=== PATIENT | male | born 1945 | race Caucasian/White ===

== ENCOUNTER 2021-08-03 10:00 | Outpatient (RCR) | payer MEDICARE, SELFPAY ==
--- NOTE | 2021-07-04 13:38 | MHC.PT.EP ---
[facility] [place] Office [place] Office [place] Office [address] [phone] F: [phone] F: [phone] F: [phone] F: [phone] Physical Therapy Plan of Care Date of Evaluation: Date of Surgery: Diagnosis: LBP Assessment: Pt is a 76 y/o male referred to PT for LBP who presents with signs an Sx consistent with lumbopelvic dysfunction resulting in decreased tolerance and ability to perform ambulatory ad standing tasks for duration as well as lifting objects of weight from the floor, , rolling in bed, and performing LE dressing secondary to decreased hip and core strength, decreased trunk ROM as well as decreased posture, increased tissue tension, pelvic asymmetry and pain. Pt is deemed an appropriate candidate to receive skilled PT in order to address his physical limitations to improve his functional ability. Frequency and Duration: The patient will be seen 2 x / wk x 4 wks. Short Term Goals: Initiate HEP. Usp Goals: I with HEP. Pt will be able to walk long distances with managed Sx; initial: Improve B hip MMT by at least 1/2 MMT grade. Treatment Plan: Modalities to reduce pain, spasms and effusion. Manual therapy to restore motion and function. Therapeutic exercise to improve strength and flexibility. Neuromuscular re-education for posture and balance. Therapeutic activities to return to functional activities of daily living. Electronically signed by: Khang Zhao PT. Please sign and return to therapist. Thank you for your referral.
--- NOTE | 2021-08-03 10:56 | MHC.PT.DC ---
[facility] [place] Office [place] Office [place] Office [address] [phone] F: [phone] F: [phone] F: [phone] F: [phone] Physical Therapy Discharge Report Diagnosis: LBP Date of Surgery: Date of Evaluation: 07/04/21 Date of Discharge: 08/03/21 Treatments to Date: 10 Cancellations to Date: No Shows to Date: Discharge Status: Achieved Goals Improved Function Independent with HEP Discharge Summary: Eduardo has been an active and motivated participant in his therapy in and out of the clinic, he is I with his home program and has met his therapeutic goals though improved persists with LE symptoms which are lessened in intensity, frequency and duration. He is in agreement with DC. Maria Esther low back pain questionnaire improved from 14% disability to 4%. Electronically signed by: Khang Zhao PT, DPT. Please sign and return to therapist. Thank you for your referral.
== END 2021-08-03 10:57 | disposition home or self-care (01) ==
LOC: HO.PTCHIC 10:00
PROVIDERS: Visit Provider Internal Medicine
DX: M54.50 Low back pain, unspecified (principal)
CPT/HCPCS: 97110; 97140; 97150; 97161

== ENCOUNTER 2021-09-17 09:54 | Outpatient (REF) | payer MEDICARE, SELFPAY ==
--- NOTE | ~2021-09-17 | XR_ITS ---
EXAMINATION: XR LUMBOSACRAL SPINE CLINICAL INFORMATION: Low back pain COMPARISON: None TECHNIQUE: Three views of the lumbosacral spine. FINDINGS: There is maintained lumbar lordosis with mild levoscoliosis. The vertebral heights are normal. There is loss of L5-S1 disc height. The rest of the disc heights are preserved. No visible acute fracture, dislocation or lytic process seen. There is moderate right L3-L4, L4-L5 facet joint hypertrophy and arthropathy. No lytic process seen. XR/XR lumbar spine 2-3V IMPRESSION: Mild degenerative disc changes L5-S1 disc level with moderate right L3-L4 and L4-L5 facet joint arthropathy. No visible acute fracture or dislocation seen.
== END 2021-09-17 09:55 | disposition home or self-care (01) ==
LOC: HO.HMGCX 09:54
PROVIDERS: PCP Internal Medicine; Visit Provider Internal Medicine
DX: M54.50 Low back pain, unspecified (principal)
CPT/HCPCS: 72100

== ENCOUNTER 2021-12-18 07:30 | Outpatient (REF) | payer MEDICARE, SELFPAY ==
[2021-12-18 11:29] LABS: MANUAL DIFF FLAG NO
[2021-12-18 11:46] LABS: Basophils Absolute Auto 0.1 X10*3/uL (0.0-0.2); Basophils Percent Auto 1.5 % (0-2); Eosinophils Absolute Auto 0.2 X10*3/uL (0.0-0.4); Eosinophils Percent Auto 3.4 % (0-4); Hematocrit 41.8 % (42.0-52.0); Hemoglobin 14.2 g/dl (14.0-18.0); Imm Gran Abs Auto 0.01 X10*3/uL (0.00-0.03); Imm Gran Pct Auto 0.2 % (0.0-0.4); Lymphocytes Absolute Auto 2.2 X10*3/uL (1.2-4.9); Lymphocytes Percent Auto 47.8 % (20-40); Mean Corpuscular Hemoglobin 31.5 pg (27.0-33.0); Mean Corpuscular Volume 92.7 fL (80.0-98.0); Mean Platelet Volume 10.3 fL (9.4-12.4); Monocytes Absolute Auto 0.5 X10*3/uL (0.1-1.2); Monocytes Percent Auto 9.7 % (2-11); Neutrophils Absolute Auto 1.7 x10*3/uL (2.0-8.3); Neutrophils Percent Auto 37.4 % (45-73); Platelet Count 248 X10*3/uL (160-400); Red Blood Count 4.51 X10*6/uL (4.60-5.80); Red Cell Distribution Width 12.4 % (11.0-16.0); White Blood Count 4.6 X10*3/uL (4.8-10.8)
[2021-12-18 12:25] LABS: Vitamin D 25-OH Total 36.2 ng/mL (>30)
[2021-12-18 13:11] LABS: Alanine Aminotransferase 22 U/L (0-40); Albumin Level 4.1 g/dL (3.5-5.0); Alkaline Phosphatase 50 U/L (39-117); Anion Gap 10 (12-20); Aspartate Amino Transferase 24 U/L (5-37); Bilirubin Total 0.5 mg/dL (0.0-1.0); Blood Urea Nitrogen 14 mg/dL (9-16); Calcium 8.9 mg/dL (8.4-10.2); Carbon Dioxide 29 mmol/L (22-29); Chloride 104 mmol/L (96-108); Cholesterol 153 mg/dL; Estimated Glomerular Filt Rate 54; Glucose Fasting 96 mg/dL (60-99); HDL Cholesterol 40 mg/dL; LDL Cholesterol Calculated 93 mg/dl; Potassium 4.6 mmol/L (3.3-5.1); Sodium 138 mmol/L (135-145); Total Protein 7.2 g/dL (6.5-8.0); Triglycerides 102 mg/dL
== END 2021-12-18 07:31 | disposition home or self-care (01) ==
LOC: HO.HMGCLDS 07:30
PROVIDERS: Visit Provider Internal Medicine
DX: I10 Essential (primary) hypertension (principal); R97.20 Elevated prostate specific antigen [PSA]; R53.83 Other fatigue; Z87.898 Personal history of other specified conditions
CPT/HCPCS: 36415; 80053; 80061; 82306; 85025

== ENCOUNTER 2021-12-20 07:24 | Outpatient (REF) | payer MEDICARE, SELFPAY ==
--- NOTE | ~2021-12-20 | MR_ITS ---
EXAMINATION: MR LUMBAR SPINE WITHOUT CONTRAST CLINICAL INFORMATION: Lumbar radiculopathy. COMPARISON: Lumbar spine radiographs 09/17/2021. TECHNIQUE: MRI of the lumbar spine was obtained using routine sequences without contrast. FINDINGS: There is spinal scoliosis with an apex left curvature centered at L3. There is grade 1 anterolisthesis of L4 on L5 related to advanced facet degenerative changes at this level. Vertebral heights are preserved. No acute bone marrow signal changes. There is loss of intervertebral disc height and T2 signal intensity at multiple levels related to disc degeneration. The tip of the conus medullaris is located at L1. No mass effect on the conus. Visualized distal cord signal intensity is normal. At L1-L2 the annular contour is normal. Bilateral facet degenerative change. No canal stenosis. No mass effect on the traversing or foraminal nerve roots. At L2-L3 there is a diffusely bulging disc. Advanced bilateral facet degenerative change. Moderate canal stenosis. Asymmetric narrowing of the right subarticular zone causes abutment and possible compression of the right traversing L3 nerve roots. No foraminal nerve root compression. At L3-L4 there is a left far lateral protrusion and a small central annular fissure associated with a bulging disc. Advanced facet degenerative change. Moderate canal stenosis. There is asymmetric narrowing of the right subarticular zone causing compression the right traversing L4 nerve roots. There is moderate compression of the extraforaminal segment of left L3 nerve root. At L4-L5 there is a diffusely bulging disc. Advanced facet degenerative change. There is also a small synovial cyst arising from the left L4-L5 facet joint. Severe canal stenosis. No foraminal nerve root compression. At L5-S1 there is a shallow central protrusion superimposed upon a diffusely bulging disc. Bilateral facet degenerative change. No canal stenosis. There is asymmetric abutment of the left traversing S1 nerve roots. Moderate compression of the left L5 foraminal nerve root. Limited visualization of the retroperitoneal anatomy reveals no abnormal finding. Psoas and paraspinal muscle groups are symmetric. MR/MR lumbar spine wo con IMPRESSION: There is advanced multilevel degenerative spondylosis of the lumbar spine with grade 1 anterolisthesis of L4 on L5 related to advanced facet degenerative changes at this level. Severe canal stenosis at L4-L5 primarily related to a pseudodisc bulge in conjunction with facet degenerative change and a tiny synovial cyst arising from the left L4-L5 facet joint. There is also moderate canal stenosis at L2-L3 and L3-L4. There are varying degrees of mass effect on the traversing and foraminal segments of the nerve roots as described above.
== END 2021-12-20 07:25 | disposition home or self-care (01) ==
LOC: HO.MRI 07:24
PROVIDERS: Visit Provider Internal Medicine
DX: M54.17 Radiculopathy, lumbosacral region (principal)
CPT/HCPCS: 72148

== ENCOUNTER → 2022-01-28 12:41 | Outpatient (BNVA) | payer MEDICARE, SELFPAY | PROVIDERS: PCP Internal Medicine; Visit Provider Internal Medicine | DX: M48.062 Spinal stenosis, lumbar region with neurogenic claudication (principal) | CPT/HCPCS: 99202 ==

== ENCOUNTER 2023-01-21 10:32 | Outpatient (AMB) | payer MEDICARE, SELFPAY ==
--- NOTE | 2023-01-21 11:32 | A.OFFPC_ITS ---
Vital Signs 01/21/23 11:35 Height 6 ft 3 in Weight 226 lb BMI 28.2 BP 130/70 Blood Pressure Location Rt brachial Position Sitting Pulse 70 Pulse Source Pulse Oximeter Pulse Oximetry (%) 98 Oxygen Delivery Method Room Air Intake Visit Reasons: 4 month follow up HTN Intake Note: Pt is here today for his 4 mo. f/u HTN Allergies No Known Allergies Allergy (Verified 01/21/23 11:51) Medication List - Last Reconciled 01/21/23 by Isabella Traylor MD aspirin (Adult Low Dose Aspirin) 81 mg PO DAILY cholecalciferol (vitamin D3) 50 mcg PO DAILY lisinopril 10 mg PO DAILY omega-3 fatty acids 1,000 mg PO DAILY Tobacco use date assessed: 01/21/23 Fall risk assessment: No Falls in past year Last assessed Fall Risk: 01/21/23 Dental Screening Dental Screen Date: 01/21/23 Did you have a dental visit in the last 12 months?: No Did you have a dental problem in the last 6 months where you did not have access to dental care?: No Was dental information given to patient?: Patient declined HPI 4 month follow up HTN HPI Details 77-year-old male with hypertension, here today for follow-up. Currently on lisinopril 10 mg once a day. 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 He has been feeling well, but complains of occasional contracture of left 5th digit.. Has history of elevated PSA in the past, but no urinary symptoms. [facility] Medical History Dupuytren's contracture of left hand Dupuytren's contracture of right hand Elevated PSA Hx of spinal stenosis Surgical History Hx of colonoscopy Family History Father CAD (coronary artery disease) Brother Prostate cancer Social History Housing: House Alcohol intake: never Patient Tobacco Use Status: Never used Tobacco e-Cigarette/Vaping Use: Never Used Second Hand Smoke Exposure: No Current occupational status: employed Cognitive needs: No Hearing needs: No Vision needs: No Questionnaire PHQ-9 Over the last 2 weeks, how often have you been bothered by any of the following problems? 1. Little interest or pleasure in doing things: not at all 2. Feeling down, depressed, or hopeless: not at all 3. Trouble falling or staying asleep, or sleeping too much: not at all 4. Feeling tired or having little energy: not at all 5. Poor appetite or overeating: not at all 6. Feeling bad about yourself - or that you are a failure or have let yourself or your family down: not at all 7. Trouble concentrating on things, such as reading the newspaper or watching television: not at all 8. Moving or speaking so slowly that other people could have noticed. Or the opposite - being so fidgety or restless that you have been moving around a lot more than usual: not at all 9. Thoughts that you would be better off or of hurting yourself in some way: not at all Total score: 0 Depression Screening Interpretation: Negative 10150 - PHQ-9 Billing: Yes Source: Developed by Drs. Minh Shah, Koki Bell, Harpreet Browne and colleagues, with an educational jaquan from [employer]. Thrive Questionnaire Date Thrive assessed: 01/21/23 I am a: Patient What is your living situation today?: I have a steady place to live Within the past 12 months, did the food you bought not last and you didn't have the money to get more?: Never true Within the past 12 months, did you worry whether your food would run out before you got money to buy more?: Never true Do you have trouble paying for medicines?: No Do you have trouble getting transportation to medical appointments?: No Do you have trouble paying your heating and electricity bill?: No Do you have trouble taking care of your child, family member or friend?: No Do you have trouble with day-to-day activities such as bathing, preparing meals, shopping, managing finances, etc.?: No Are you currently unemployed and looking for a job?: No Are you interested in more education?: No AUDIT C Alcohol Use Questionnaire (AUDIT-C) 1. How often do you have a drink containing alcohol?: Never Total Score: 0 ARMIDA-7 AMB Questionnaire ARMIDA-7 Date ARMIDA - 7 assessed: 01/21/23 Feeling nervous, anxious, or on edge: 0 = Not at all Not being able to stop or control worryin = Not at all Worrying too much about different things: 0 = Not at all Trouble relaxin = Not at all Being so restless that it is hard to sit still: 0 = Not at all Becoming easily annoyed or irritable: 0 = Not at all Feeling afraid as if something awful might happen: 0 = Not at all Total ARMIDA-7 score (0-4 normal; 5-9 mild; 10-14 moderate; 15-21 severe): 0 Source: Developed by Drs. Minh Shah, Koki Bell, Harpreet Browne and colleagues, with an educational jaquan from [employer]. ARMIDA-7 Assessment Billing ARMIDA-7 Assessment Tool: ARMIDA-7 Assessment 36070 Review of Systems Const Reports no additional complaints Card Denies chest pain, Denies chest pain with activity, Denies irregular heart rhythm, Denies lightheadedness and Denies dyspnea Resp Denies dyspnea Reports no additional complaints Musc Reports as per HPI and Reports stiffness Neuro Reports no additional complaints Physical exam (Primary Care) Vital Signs: Last Vital Signs Pulse 70 01/21/23 11:35 BP 130/70 01/21/23 11:35 Pulse Ox 98 01/21/23 11:35 Oxygen Delivery Method Room Air 01/21/23 11:35 BMI result Body Mass Index 28.2 Tobacco/Smoking Status: Tobacco use Status Tobacco use date assessed 01/21/23 01/21/23 11:38 Patient Tobacco Use Status Never used Tobacco 01/21/23 11:38 e-Cigarette/Vaping Use Never Used 01/21/23 11:38 PHQ-9: PHQ-9 Score PHQ-9: Total score 0 01/21/23 12:00 Depression Screening Interpretation: Negative Thrive Assessment: Date of Thrive Assessment Date Thrive assessed 01/21/23 01/21/23 11:38 Const Other: Alert oriented x3, no acute distress noted , ambulatory with normal gait Orientation/consciousness: patient oriented x3 Neck Neck: Yes full ROM, Yes no lymphadenopathy and Yes supple Resp Auscultation: clear to auscultation bilaterally Cardio Other: S1-S2 present regular rate and rhythm Neuro General: patient oriented x3, gait normal, tone normal, moves all extremities and no focal motor deficits Gait exam (Neuro): Normal gait present Motor exam (neuro): 5/5 motor strength present throughout Extrem Other: Contracture deformity on left 5th digit General: Yes full ROM, Yes no joint enlargement, Yes no pedal edema, Yes no calf tenderness and Yes normal gait Assessment and Plan Assessment & Plan (1) Essential hypertension: Code(s): I10 - Essential (primary) hypertension Plan: Blood pressure at goal of less than 130/80. Continue with current medication. Reinforced importance of following a low sodium diet, getting regular exercise, and lowering stress levels. (2) Elevated PSA: Comment: Followed by Dr. Sanchez at [facility] Urology Code(s): R97.20 - Elevated prostate specific antigen [PSA] Plan: Free and total PSA ordered (3) Dupuytren's contracture of left hand: Comment: left 5th digit Code(s): M72.0 - Palmar fascial fibromatosis [Dupuytren] Plan: Referral made to see Dr. Bailey at [facility] see orthopedics for further evaluation and management Orders: Orders Alanine Aminotransferase Today I10 - Essential (primary) hypertension, R97.20 - Elevated prostate specific antigen [PSA] Aspartate Amino Transferase Today I10 - Essential (primary) hypertension, R97.20 - Elevated prostate specific antigen [PSA] Basic Metabolic Panel Fasting Today I10 - Essential (primary) hypertension, R97.20 - Elevated prostate specific antigen [PSA] Lipid Panel Today I10 - Essential (primary) hypertension, R97.20 - Elevated prostate specific antigen [PSA] PSA,Total (Free>4and<10) Today I10 - Essential (primary) hypertension, R97.20 - Elevated prostate specific antigen [PSA] Referrals Orthopedics Referral M72.0 - Palmar fascial fibromatosis [Dupuytren] Coding Level of Care Code Est Pt Level 3 (81311) Diagnoses Essential hypertension I10 Elevated PSA R97.20 Dupuytren's contracture of left hand M72.0 Additional Codes ARMIDA-7 Assessment Billing - ARMIDA-7 Assessment Tool: ARMIDA-7 Assessment 12384 ([id number])
[2023-01-21 11:35] VITALS: BP 130/70; PULSE 70; O2SAT 98; BMI 28.2
== END 2023-01-21 12:28 | disposition home or self-care (01) ==
PROVIDERS: Visit Provider Internal Medicine
DX: I10 Essential (primary) hypertension (principal); R97.20 Elevated prostate specific antigen [PSA]; M72.0 Palmar fascial fibromatosis [Dupuytren]
CPT/HCPCS: 99213

== ENCOUNTER 2023-01-23 06:02 | Outpatient (REF) | payer MEDICARE, SELFPAY ==
[2023-01-23 12:16] LABS: Alanine Aminotransferase 20 U/L (0-40); Anion Gap 13 (12-20); Aspartate Amino Transferase 26 U/L (5-37); Blood Urea Nitrogen 13 mg/dL (9-16); Calcium 9.2 mg/dL (8.4-10.2); Carbon Dioxide 25 mmol/L (22-29); Chloride 105 mmol/L (96-108); Cholesterol 156 mg/dL; Estimated Glomerular Filt Rate > 60; Glucose Fasting 89 mg/dL (60-99); HDL Cholesterol 44 mg/dL; LDL Cholesterol Calculated 94 mg/dl; Sodium 139 mmol/L (135-145); Triglycerides 94 mg/dL
[2023-01-23 13:05] LABS: PSA,Total (Free>4and<10) 4.05 ng/mL (0.00-4.00)
[2023-01-28 10:04] LABS: Free Prostate Spec Ag 1.9 ng/mL; Percent Free Prostate Spec Ag 48 % (calc) (>25)
== END 2023-01-23 06:03 | disposition home or self-care (01) ==
LOC: HO.HMGCLDS 06:02
PROVIDERS: PCP Internal Medicine; Visit Provider Internal Medicine
DX: Z12.5 Encounter for screening for malignant neoplasm of prostate (principal); I10 Essential (primary) hypertension; R97.20 Elevated prostate specific antigen [PSA]
CPT/HCPCS: 36415; 80048; 80061; 84153; 84154; 84450; 84460

== ENCOUNTER 2023-03-04 12:45 | Outpatient (AMB) | payer MEDICARE, SELFPAY ==
[2023-03-04 13:08] VITALS: BMI 27.9
--- NOTE | 2023-03-04 13:08 | MHC.OFFVIS ---
Intake Vital Signs 03/04/23 13:08 Height 6 ft 3 in Weight 223 lb BMI 27.9 Intake Visit Reasons: Npatient, LT LF pain Intake Note: Eduardo 77 yr old who is right hand dominant, presents today as a new patient for evaluation of his left small finger. Patient reports he is having contracture in small finger that started in September or October and has worsen since. States his pinky is austin inward towards his palm. States this cause no pain or discomfort but at times gets in the way when he tries to put his hand in his pocket. Denies previous treatment, numbness or tingling. Hx of right small finger dupreytrens contracture. Allergies No Known Allergies Allergy (Verified 03/04/23 13:13) HPI Npatient, LT LF pain HPI Details Eduardo is a 77 year old right hand dominant man who presents with complaints of a left small finger contraction. He has a hx of a right small finger Dupuytren's contracture and had two surgeries to correct this many years ago. He complains of a contracture of the small finger for ~4-5 months. He denies any pain. 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 [facility] Medical History Dupuytren's contracture of left hand Dupuytren's contracture of right hand Elevated PSA Hx of spinal stenosis Surgical History Hx of colonoscopy Family History Father CAD (coronary artery disease) Brother Prostate cancer Social History Housing: House Alcohol intake: never Patient Tobacco Use Status: Never used Tobacco e-Cigarette/Vaping Use: Never Used Second Hand Smoke Exposure: No Current occupational status: employed Cognitive needs: No Hearing needs: No Vision needs: No Review of Systems Const All systems reviewed & are unremarkable except as noted in HPI and below Physical Exam Vital Signs: BMI result Body Mass Index 27.9 Const General: cooperative, healthy appearing and no acute distress Orientation/consciousness: patient oriented x3 HEENT Head: Yes normocephalic and Yes atraumatic Eyes EOM: EOMs intact bilaterally Resp Effort & Inspection: normal respiratory effort and able to speak in complete sentences Cardio Jugular venous distension: no JVD Skin General skin exam: turgor normal Rashes: no rashes Neuro General: patient oriented x3 Extrem Other: Evaluation of Left Upper Extremity: The patient is alert, oriented, and in no acute distress Neuro: Median, Ulnar, Radial nerves motor and sensory intact and sensation is normal to the tips of all digits Vascular: Cap refill brisk ROM: He can make a fist and extend his thumb, index, middle, and ring fingers Skin: No lacerations or abrasions. General: No Ecchymosis. No Erythema or evidence of infection. He has a Dupuytren's contracture of the small finger, Dupuytren's cord primarily on the ulnar side of the digit going into the ABductors Measuring: MCP 0/PIP 45 degrees Psych Appearance: grossly normal Affect: normal affect Attitude: cooperative Assessment & Plan Assessment & Plan (1) Dupuytren's contracture of left hand: Comment: left 5th digit Code(s): M72.0 - Palmar fascial fibromatosis [Dupuytren] Plan Assessment & Plan: 1. 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 These risks include, but are not limited to risk of damage to blood vessels, nerves, tendons, infection, recurrence, incomplete relief of preoperative symptoms, persistent pain, possible need for further surgery and the risks associated with regional blocks and anesthesia. The plan is to take the patient to the operating room sometime in April for the following procedures: 1. Left small finger Dupuytren's partial fasciectomy, under general All the patient's questions were answered. The patient understands that they will be contacted by our contour band saw operator [employer] soon to schedule this procedure. He would like this done in April when golf season finishes and he can get time off of work. He denies Diabetes, blood thinners, asthma, heart, lung, kidney issues He will follow up in 6-8 weeks to discuss surgery Scribed for Indu Bailey MD by Gerald Burgess, nuclear medicine medical director, on 03/04/23 at 1:50 PM, EST. Coding Level of Care Code New Pt Level 4 (95314) Diagnoses Dupuytren's contracture of left hand M72.0
== END 2023-03-04 13:53 | disposition home or self-care (01) ==
PROVIDERS: PCP Internal Medicine; Visit Provider Orthopaedic Surgery
DX: M72.0 Palmar fascial fibromatosis [Dupuytren] (principal)
CPT/HCPCS: 99204

== ENCOUNTER → 2023-03-04 12:45 | Outpatient (BNVA) | payer MEDICARE, SELFPAY | PROVIDERS: PCP Internal Medicine; Visit Provider Orthopaedic Surgery | DX: M72.0 Palmar fascial fibromatosis [Dupuytren] (principal) | CPT/HCPCS: 99202 ==

== ENCOUNTER 2023-05-20 08:48 | Outpatient (AMB) | payer MEDICARE, SELFPAY ==
--- NOTE | 2023-05-20 09:06 | A.OFFVIS_ITS ---
Intake Vital Signs 05/20/23 09:08 Height 6 ft 3 in Weight 223 lb BMI 27.9 Intake Visit Reasons: ov- Dupuytren's contracture of left hand Intake Note: Eduardo 77 yr old male presents today to sign his surgery consent for his left hand dupuytrens contracture. Allergies No Known Allergies Allergy (Verified 05/20/23 09:08) HPI ov- Dupuytren's contracture of left hand HPI Details Eduardo is a 77 year old right hand dominant man who returns to discuss his left small finger Dupuytrens contracture. He has a hx of right small finger and right index finger Dupuytren's c ontractures and had surgeries to correct these many years ago. He complains of a contracture of the small finger for ~7 months. He denies any pain. 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 [facility] Medical History Dupuytren's contracture of left hand Dupuytren's contracture of right hand Elevated PSA Hx of spinal stenosis Surgical History Hx of colonoscopy Family History Father CAD (coronary artery disease) Brother Prostate cancer Housing: House Alcohol intake: never Patient Tobacco Use Status: Never used Tobacco e-Cigarette/Vaping Use: Never Used Second Hand Smoke Exposure: No Current occupational status: employed Cognitive needs: No Hearing needs: No Vision needs: No Review of Systems Const All systems reviewed & are unremarkable except as noted in HPI and below Physical Exam Vital Signs: BMI result Body Mass Index 27.9 Const General: cooperative, healthy appearing and no acute distress Orientation/consciousness: patient oriented x3 HEENT Head: Yes normocephalic and Yes atraumatic Eyes EOM: EOMs intact bilaterally Resp Effort & Inspection: normal respiratory effort and able to speak in complete sentences Cardio Jugular venous distension: no JVD Skin General skin exam: turgor normal Rashes: no rashes Neuro General: patient oriented x3 Extrem Other: Evaluation of Left Upper Extremity: The patient is alert, oriented, and in no acute distress Neuro: Median, Ulnar, Radial nerves motor and sensory intact and sensation is normal to the tips of all digits Vascular: Cap refill brisk ROM: He can make a fist and extend his thumb, index, middle, and ring fingers Skin: No lacerations or abrasions. General: No Ecchymosis. No Erythema or evidence of infection. He has a Dupuytren's contracture of the small finger, Dupuytren's cord primarily on the ulnar side of the digit going into the small finger ABductor Measuring: MCP 0/PIP 65 degrees Psych Appearance: grossly normal Affect: normal affect Attitude: cooperative Assessment & Plan Assessment & Plan (1) Dupuytren's contracture of left hand: Comment: left 5th digit Code(s): M72.0 - Palmar fascial fibromatosis [Dupuytren] Plan Assessment & Plan: 1. Left small finger Dupuytren's contracture MCP 0/PIP 65 With an ulnar-sided cord going to the small finger ABductor I educated him about this condition I discussed operative and non-operative treatment options The patient would like to proceed with surgery The risks and benefits of operative treatment were discussed with the patient and the patient wishes to proceed with surgery. These risks include, but are not limited to risk of damage to blood vessels, nerves, tendons, infection, recurrence, incomplete relief of preoperative symptoms, persistent pain, possible need for further surgery and the risks associated with regional blocks and anesthesia. The plan is to take the patient to the operating room sometime in the next few months for the following procedures: 1. Left small finger Dupuytren's partial fasciectomy, under general All the patient's questions were answered. The patient understands that they will be contacted by our ship rigger soon to schedule this procedure. He denies Diabetes, blood thinners, asthma, heart, lung, kidney issues He will need an appointment with the hand therapist at his 1st postop for them to make him a custom thermoplastic night splint and start working on range of motion. Scribed for Indu Bailey MD by Gerald Burgess medical office assistant, on 05/20/23 at 9:25 AM, EST. Coding Level of Care Code Est Pt Level 4 (41940) Diagnoses Dupuytren's contracture of left hand M72.0
[2023-05-20 09:08] VITALS: BMI 27.9
== END 2023-05-20 10:30 | disposition home or self-care (01) ==
PROVIDERS: PCP Internal Medicine; Visit Provider Orthopaedic Surgery
DX: M72.0 Palmar fascial fibromatosis [Dupuytren] (principal)
CPT/HCPCS: 99214

== ENCOUNTER → 2023-05-20 08:48 | Outpatient (BNVA) | payer MEDICARE, SELFPAY | PROVIDERS: PCP Internal Medicine; Visit Provider Orthopaedic Surgery | DX: M72.0 Palmar fascial fibromatosis [Dupuytren] (principal) | CPT/HCPCS: 99212 ==

== ENCOUNTER 2023-07-22 06:20 | Day surgery (SDC) | payer MEDICARE, SELFPAY ==
[2023-07-18 13:30] VITALS: BMI 28.6
--- NOTE | 2023-07-21 08:17 | HO.ANESPROP2 ---
Documented by User: Kelly Moreno NP 07/21/23 08:17 HPI - Anesthesia Eval Consult details Narrative: 78yo M for Colonoscopy PMFSH Active Problems Active Problems: All Active Problems (Updated 07/18/23 @ 13:27 by Leti Washington RN) Spinal stenosis, lumbar region with neurogenic claudication (Acute) Degenerative lumbar spinal stenosis (Acute) Right lumbosacral radiculopathy (Acute) Essential hypertension (Acute) Dupuytren's contracture of left hand (Acute) Hx of spinal stenosis (Acute) Elevated PSA (Acute) Past Medical History Medical History HTN (hypertension) Dupuytren's contracture of left hand Hx of spinal stenosis Elevated PSA Dupuytren's contracture of right hand Family History Family History Father CAD (coronary artery disease) Brother Prostate cancer Surgical History Surgical History History of back surgery Hx of colonoscopy Social History Social History Housing: House Alcohol intake: never Patient Tobacco Use Status: Never used Tobacco e-Cigarette/Vaping Use: Never Used Second Hand Smoke Exposure: No Use of substances other than those prescribed or required for medical reasons: No Are you DNR?: No Advance Directives: No Advance Directives Information Provided: Yes Advance Directives on File: No Current occupational status: employed Cognitive needs: No Hearing needs: No Vision needs: No Meds Allergies Allergy/AdvReac Type Severity Reaction Status Date / Time No Known Allergies Allergy Verified 05/20/23 09:08 Home Medications Medication Instructions Recorded Confirmed Last Taken Type aspirin 81 mg tablet,delayed 81 mg PO DAILY 12/14/20 07/18/23 Unknown History release (Adult Low Dose Aspirin) cholecalciferol (vitamin D3) 50 50 mcg PO DAILY 12/14/20 07/18/23 Unknown History mcg (2,000 unit) capsule omega-3 fatty acids 1,000 mg 1,000 mg PO DAILY 12/14/20 07/18/23 Unknown History capsule Exam Height,Weight and Vital Signs: Height 6 ft 2 in Weight 101.151 kg Assessment and Plan Assessment Anesthesia Assessment: Chart Reviewed Documented by User: Krysten Jorgensen MD 07/22/23 07:35 PMFSH Active Problems Active Problems: All Active Problems (Updated 07/22/23 @ 07:20 by Krysten Jrogensen MD) Spinal stenosis, lumbar region with neurogenic claudication (Acute) Degenerative lumbar spinal stenosis (Acute) Right lumbosacral radiculopathy (Acute) Essential hypertension (Acute) Dupuytren's contracture of left hand (Acute) Hx of spinal stenosis (Acute) Elevated PSA (Acute) Past Medical History Medical History HTN (hypertension) Dupuytren's contracture of left hand Hx of spinal stenosis Elevated PSA Dupuytren's contracture of right hand Family History Family History Father CAD (coronary artery disease) Brother Prostate cancer Family history of problems with anesthesia: No Surgical History Surgical History History of back surgery Hx of colonoscopy History of Problems with Anesthesia: No Social History Social History Housing: House Alcohol intake: never Patient Tobacco Use Status: Never used Tobacco e-Cigarette/Vaping Use: Never Used Second Hand Smoke Exposure: No Use of substances other than those prescribed or required for medical reasons: No Are you DNR?: No Advance Directives: No Advance Directives Information Provided: Yes Advance Directives on File: No Current occupational status: employed Cognitive needs: No Hearing needs: No Vision needs: No Meds Allergies Allergy/AdvReac Type Severity Reaction Status Date / Time No Known Allergies Allergy Verified 05/20/23 09:08 Home Medications Medication Instructions Recorded Confirmed Last Taken Type aspirin 81 mg tablet,delayed 81 mg PO DAILY 12/14/20 07/18/23 Unknown History release (Adult Low Dose Aspirin) cholecalciferol (vitamin D3) 50 50 mcg PO DAILY 12/14/20 07/18/23 Unknown History mcg (2,000 unit) capsule omega-3 fatty acids 1,000 mg 1,000 mg PO DAILY 12/14/20 07/18/23 Unknown History capsule Exam Height,Weight and Vital Signs: Height 6 ft 2 in Weight 101.151 kg Vital Signs Temp Pulse Resp BP Pulse Ox O2 Del Method 07/22/23 07:12 98.7 F 77 18 150/77 H 99 Room Air Airway Mallampati Class: I TM Dist: >3cm Neck ROM: Full Denture: Upper and Lower Loose/Missing/Broken Teeth: Yes (Edentulous. Dentures at home) Heart: RRR Lungs: CTAB Assessment and Plan Assessment Anesthesia Assessment: Anesthesia Plan Discussed Final Anesthetic Review Family History of Problems with Anesthesia: No History of Problems with Anesthesia: No NPO: Yes ASA Class: II Final Preanesthetic Review: No Changes in Pt Med Stat, Meds/Allgs Chart Reviewed, Consent Obtained/Reviewed and Anes Risks/Benef Reviewed Patient Risk: Intermediate Procedure Risk: Low Assessment/Block/Sedation in SS: Assess/Block/Sedation-SS Anesthetic Plan Anesthetic Plan: TIVA Disposition: Standard PACU
[2023-07-22 06:56] VITALS: BMI 29.2
[2023-07-22 07:12] VITALS: BP 150/77; PULSE 77; RESP 18; TEMP 37.1; O2SAT 99
--- NOTE | 2023-07-22 07:30 | P.HPSUR_ITS ---
Pre-Procedural Eval Section A Date of Service: 07/22/23 Section B Chief Complaint: Encounter for screening for malignant neoplasm of Details of Present Illness: see H*P no changes Relevant Family History (Specify if Yes): No Relevant Social History: None Present Medications: see Short Stay Collaborative assessment Medical History: No relevant PMH History of Previous Operations: No relevant previous surgery Allergies: Allergies Allergy/AdvReac Type Severity Reaction Status Date / Time No Known Allergies Allergy Verified 05/20/23 09:08 Review of Systems Sugical H&P ROS: Negative: Constitution, Cardiovascular, Respiratory, Neurolo gical, Psychiatric, Hem-Onc, Allergic/Immunologic, Gastrointestinal, Genitourinary, Musculoskeletal, Integumentary, Endocrine and Eyes/Ears/Nose/Throat Exam Surgical H&P Exam: Normal: HEENT, Normal: Heart, Normal: Lungs, Normal: Extremities, Normal: Abdomen, Normal: Skin and Normal: Neurological Plan Diagnosis/Plan: Unchanged I have reviewed the history and physical and performed a pertinent physical examination on my patient. No changes have occurred unless specified. Time Spent With Patient Time: Total time managing care of this patient today ____ minutes.
[2023-07-22 08:04] VITALS: BP 100/49; PULSE 81; RESP 18; TEMP 36.3; O2SAT 97
[2023-07-22 08:19] VITALS: BP 107/61; PULSE 81; RESP 18; TEMP 36.3; O2SAT 99
--- NOTE | 2023-07-22 10:47 | OP_ITS ---
DATE OF SERVICE: 07/22/2023 SURGEON: Avery Carrero MD INDICATIONS: Colon cancer screening. PREOPERATIVE DIAGNOSIS: POSTOPERATIVE DIAGNOSIS: PROCEDURE PERFORMED: ESTIMATED BLOOD LOSS: COMPLICATIONS: ANESTHESIA: Monitored anesthesia care. ASSISTANTS: SPECIMENS: OPERATIONS PERFORMED: Colonoscopy to the terminal ileum with biopsy. DESCRIPTION OF PROCEDURE: History and physical was performed. The risks and benefits of the procedure were explained to the patient. Informed consent was obtained. The patient was placed in the left lateral decubitus position. A digital rectal exam was performed and was found to be normal. The Olympus pediatric video colonoscope was introduced into the rectum and advanced to the cecum. The cecum was identified by transillumination, palpation, and identification of ileocecal valve. Examination was performed. The scope was removed. He tolerated the procedure well and was returned to the recovery area in stable condition. FINDINGS: The terminal ileum was examined and appeared normal. The visualized colonic mucosa was normal. The quality of prep was good. In the cecum was aless than 5 mm polyp, which was removed with biopsy forceps. Retroflexed examination showed moderate-sized internal hemorrhoids. There was mild sigmoid diverticulosis. IMPRESSION: Colon polyp. RECOMMENDATION: Follow up the biopsy results. MD MARIBELL Duncan/DOMINIC / [id number] MTDD
== END 2023-07-22 08:55 | disposition home or self-care (01) ==
PROVIDERS: PCP Internal Medicine; Visit Provider Internal Medicine Gastroenterology
PROC: 0DJD8ZZ Inspection of Lower Intestinal Tract, Via Natural or Artificial Opening Endoscopic (ICD-10-PCS; CPT 45378; principal; 2023-07-22 07:30)
DX: Z12.11 Encounter for screening for malignant neoplasm of colon (principal); D12.0 Benign neoplasm of cecum; K57.30 Diverticulosis of large intestine without perforation or abscess without bleeding; K64.8 Other hemorrhoids; I10 Essential (primary) hypertension; Z79.82 Long term (current) use of aspirin
CPT/HCPCS: 45380; 88305; J2704

== ENCOUNTER 2023-08-14 05:44 | Day surgery (SDC) | payer MEDICARE, SELFPAY ==
[2023-07-29 09:26] VITALS: BMI 27.9
[2023-08-14] VITALS (9 sets, daily range): BP systolic 123–163; BP diastolic 58–85; PULSE 66–89; RESP 12–16; TEMP 36.4–36.8; O2SAT 95–98; BMI 28.8
[2023-08-14] MEDS: Lactated Ringers 1,000 ML 100 ML IVCONT (06:30)
--- NOTE | 2023-08-14 07:15 | P.CONAN_ITS ---
Documented by User: Kelly Moreno NP 08/13/23 09:40 HPI - Anesthesia Eval Consult details Narrative: 78yo M for Left Left 5th digit Dupuytrens Contracture Release, partial Fasciectomy s/p colo 06/2023 [facility] Active Problems Active Problems: All Active Problems (Updated 07/18/23 @ 13:27 by Leti Washington RN) Spinal stenosis, lumbar region with neurogenic claudication (Acute) Degenerative lumbar spinal stenosis (Acute) Right lumbosacral radiculopathy (Acute) Essential hypertension (Acute) Dupuytren's contracture of left hand (Acute) Hx of spinal stenosis (Acute) Elevated PSA (Acute) Past Medical History Medical History HTN (hypertension) Dupuytren's contracture of left hand Hx of spinal stenosis Elevated PSA Dupuytren's contracture of right hand Family History Family History Father CAD (coronary artery disease) Brother Prostate cancer Family history of problems with anesthesia: No Surgical History Surgical History Hx of hand surgery History of back surgery Hx of colonoscopy History of Problems with Anesthesia: No Social History Social History Housing: House Alcohol intake: never Patient Tobacco Use Status: Never used Tobacco e-Cigarette/Vaping Use: Never Used Second Hand Smoke Exposure: No Use of substances other than those prescribed or required for medical reasons: No Are you DNR?: No Advance Directives: No Advance Directives Information Provided: Yes Current occupational status: employed Cognitive needs: No Hearing needs: No Vision needs: No Meds Allergies Allergy/AdvReac Type Severity Reaction Status Date / Time No Known Allergies Allergy Verified 08/14/23 06:07 Home Medications Medication Instructions Recorded Confirmed Last Taken Type aspirin 81 mg tablet,delayed 81 mg PO DAILY 12/14/20 08/14/23 08/05/23 History release (Adult Low Dose Aspirin) cholecalciferol (vitamin D3) 50 50 mcg PO DAILY 12/14/20 08/14/23 Unknown History mcg (2,000 unit) capsule omega-3 fatty acids 1,000 mg 1,000 mg PO DAILY 12/14/20 08/14/23 08/05/23 History capsule Exam Height,Weight and Vital Signs: Height 6 ft 3 in Weight 101.151 kg Pertinent Lab Results Pertinent Lab Results: Laboratory Tests 01/23/23 06:08 Sodium 139 Potassium 4.0 Chloride 105 Carbon Dioxide 25 BUN 13 Creatinine 1.16 Assessment and Plan Assessment Anesthesia Assessment: Chart Reviewed Final Anesthetic Review Family History of Problems with Anesthesia: No History of Problems with Anesthesia: No Documented by User: Felipa Celestin DO 08/14/23 08:13 [facility] Past Medical History Medical History HTN (hypertension) Dupuytren's contracture of left hand Hx of spinal stenosis Elevated PSA Dupuytren's contracture of right hand Family History Family History Father CAD (coronary artery disease) Brother Prostate cancer Family history of problems with anesthesia: No Surgical History Surgical History Hx of hand surgery History of back surgery Hx of colonoscopy History of Problems with Anesthesia: No Social History Social History Housing: House Alcohol intake: never Patient Tobacco Use Status: Never used Tobacco e-Cigarette/Vaping Use: Never Used Second Hand Smoke Exposure: No Use of substances other than those prescribed or required for medical reasons: No Are you DNR?: No Advance Directives: No Advance Directives Information Provided: Yes Current occupational status: employed Cognitive needs: No Hearing needs: No Vision needs: No Meds Allergies Allergy/AdvReac Type Severity Reaction Status Date / Time No Known Allergies Allergy Verified 08/14/23 06:07 Home Medications Medication Instructions Recorded Confirmed Last Taken Type aspirin 81 mg tablet,delayed 81 mg PO DAILY 12/14/20 08/14/23 08/05/23 History release (Adult Low Dose Aspirin) cholecalciferol (vitamin D3) 50 50 mcg PO DAILY 12/14/20 08/14/23 Unknown History mcg (2,000 unit) capsule omega-3 fatty acids 1,000 mg 1,000 mg PO DAILY 12/14/20 08/14/23 08/05/23 History capsule Exam Exam Date and Time: August 14, 202315 Height,Weight and Vital Signs: Height 6 ft 3 in Weight 101.151 kg Height 6 ft 3 in Weight 104.598 kg Vital Signs Temperature 98.2 F 08/14/23 06:29 Pulse Rate 66 08/14/23 06:29 Respiratory Rate 16 08/14/23 06:29 Blood Pressure 163/76 H 08/14/23 06:29 Pulse Oximetry 98 08/14/23 06:29 Oxygen Delivery Method Room Air 08/14/23 06:29 Temperature 98.2 F 08/14/23 06:29 Pulse Rate 66 08/14/23 06:29 Respiratory Rate 16 08/14/23 06:29 Blood Pressure 163/76 H 08/14/23 06:29 Pulse Oximetry 98 08/14/23 06:29 Oxygen Delivery Method Room Air 08/14/23 06:29 Airway Mallampati Class: I TM Dist: >3cm Neck ROM: Full Denture: Upper and Lower Heart: S1S2 Lungs: CTAB Assessment and Plan Assessment Anesthesia Assessment: Anesthesia Plan Discussed and Chart Reviewed Final Anesthetic Review Family History of Problems with Anesthesia: No History of Problems with Anesthesia: No NPO: Yes ASA Class: II Final Preanesthetic Review: No Changes in Pt Med Stat, Meds/Allgs Chart Reviewed, Consent Obtained/Reviewed and Anes Risks/Benef Reviewed Patient Risk: Low Procedure Risk: Low Anesthetic Plan Anesthetic Plan: GA, Regional Block (left brachial plexus block) and Agree w/ Assess. and Plan Disposition: Standard PACU
--- NOTE | 2023-08-14 07:47 | MHC.SHP ---
Pre-Procedural Eval Section A - 24 Hr Update-Section A only Date of Service: 08/14/23 The patient is an INPATIENT: No Changes since office visit: No Cold of Flu in the past 2 weeks, No New Medical Problems, No Changes in Medication and No Patient answered all questions The patient has been examined within 24 hours of the surgical procedure. The History & Physical has been completed within 30 days and I have reviewed it.: Yes Section B - Complete if H&P > 30 days Chief Complaint: Palmar fascial fibromatosis [Dupuytren] Allergies: Allergies Allergy/AdvReac Type Severity Reaction Status Date / Time No Known Allergies Allergy Verified 08/14/23 06:07 Plan I have reviewed the history and physical and performed a pertinent physical examination on my patient. No changes have occurred unless specified. Time Spent With Patient Time: Total time managing care of this patient today ____ minutes.
--- NOTE | 2023-08-14 07:48 | P.OP_ITS ---
Operative Note Operative Note Date of Service: 08/14/23 Narrative: Preop diagnosis: 1. Left small finger Dupuytren's contracture Postop diagnosis: Same Procedure: 1. Left small finger Partial Dupuytren's fasciectomy 2. Left small finger ulnar Digital nerve neurolysis 3. Left small finger PIP joint volar capsular release and release of the volar plate Surgeon: Indu Bailey MD Anesthesia: General anesthesia plus regional block Findings: An ulnar-sided Dupuytren's cord extending from the small finger abductor to the ulnar aspect of the middle phalanx. Following our partial fasciectomy the MCP joint was brought to full extension and the PIP joint contracture improved from 90 degrees to about 50 degrees. Following release of the PIP joint volar capsule and the volar plate I was able to improve the contracture to 0 degrees or full extension. Implants: None Tourniquet time: Sixty-four minutes EBL: 5.0 ml Specimen: Left small finger Dupuytren's cord Drains: None Complications: None Disposition: Brought to the recovery room in stable condition Plan: Follow-up in 10-14 days for wound check, suture removal and to check pathology OT appt on day of f/u to make a custom night spint and to begin OT Indications: The patient is 78 years old with left small finger Dupuytren's contracture . The risks and benefits of operative treatment, including but not limited to risk of damage to blood vessels, nerves, tendons, infection, recu rrence, persistent pain or numbness, incomplete resolution of preoperative symptoms, or need for further surgery were discussed with the patient and they wished to proceed with surgery. Procedure: Once consent was obtained patient was brought back to the operating suite and placed in the operating table in a supine position. A regional block was performed by the anesthesia team. Perioperative antibiotics and anesthesia was administered by the anesthesia team. A tourniquet was applied to the proximal aspect of the left upper extremity and the limb was prepped and draped in a standard surgical fashion. The limb was elevated exsanguinated with Esmarch bandage and the tourniquet inflated to 250 mm of mercury for a total tourniquet time of 64 minutes. I made a Gayle type incision on the volar aspect of the left small finger extending from the palmar digital crease to the PIP flexion crease.. The incision was made with a 15. Blade through the skin the subcutaneous tissues. I then carefully dissected down to the level of the Dupuytren's cord beginning at the proximal aspect of the incision. This was done using tenotomy and iris scissors. He had a Dupuytren's cord extending from the small finger abductor extending along the ulnar aspect of the small finger to the middle phalanx. I carefully dissected some of the skin and subcutaneous tissue off of this Dupuytren's cord using tenotomy and iris scissors. I then needed to perform a neurolysis of the ulnar digital nerve, freeing it from the surrounding tissue including from this Dupuytren's cord particularly as they passed across the PIP joint. The ulnar digital nerve and vessel were carefully dissected free from the soft tissues using tenotomy and iris scissors and were then protected during the case. The Dupuytren's cord was then released at its proximal aspect and dissected free from the surrounding tissues in a proximal to distal direction. It was then released from the skin, the flexor tendon sheath and the middle phalanx using tenotomy and iris scissors. The specimen was then placed on the back table to be sent for histopathology. At this point his flexion contracture was improved at the PIP joint from 90 degrees to about 45 or 50 degrees. I attempted a gentle manipulation of the PIP joint under anesthesia but did not see improvement. At this point I elected to proceed with a release of the volar aspect of the PIP joint to improve his contracture. I did this by 1st opening the flexor tendon sheath at the A3 gilbert and then retracting the flexor tendons. This then revealed to me the volar plate. The volar plate was released at its proximal aspect on the distal aspect of the proximal phalanx. I also then used a 15 blade to release the volar capsule of the PIP joint. I was then able to manipulate the PIP joint in improve our contracture to full extension or 0 degrees. At this point the tourniquet was deflated and hemostasis obtained with a brief period of local pressure. The wound was copiously irrigated with normal saline. The skin edges were reapproximated with 5-0 Prolene suture. The wound was infiltrated with some 0.25% plain Marcaine for postop pain control and a sterile dressing and volar splint holding the small and ring fingers in extension was applied. The patient appears to have tolerated the procedure well and with no complications. All digits were well vascularized conclusion of the case.
== END 2023-08-14 12:35 | disposition home or self-care (01) ==
PROVIDERS: PCP Internal Medicine; Visit Provider Orthopaedic Surgery
PROC: (CPT 26045; principal; 2023-08-14 07:30)
DX: M72.0 Palmar fascial fibromatosis [Dupuytren] (principal); I10 Essential (primary) hypertension; Z79.82 Long term (current) use of aspirin; Z79.899 Other long term (current) drug therapy
CPT/HCPCS: 26123; 88304; 88305; J0131; J0690; J1100; J2250; J2405; J2704; J2795; J3010

== ENCOUNTER → 2023-08-14 05:44 | Outpatient (BNV) | payer MEDICARE, SELFPAY | PROVIDERS: PCP Internal Medicine; Visit Provider Orthopaedic Surgery | DX: M72.0 Palmar fascial fibromatosis [Dupuytren] (principal) | CPT/HCPCS: 26123 ==

== ENCOUNTER 2023-08-27 10:14 | Outpatient (AMB) | payer MEDICARE, SELFPAY ==
--- NOTE | 2023-08-27 10:21 | A.OFFVIS_ITS ---
Intake Intake Visit Reasons: PO-Lt SF Dupuytrens 08/14/23 Intake Note: Eduardo 78 yr old male presents today for his post op visit for his left small finger Dupuytrens 08/14/23. States he is doing well no pain . Every other suture removed and steri strips placed. Allergies No Known Allergies Allergy (Verified 08/27/23 10:25) HPI PO-Lt SF Dupuytrens 08/14/23 HPI Details Eduardo is a 78 year old right hand dominant man who returns S/P left small finger Partial Dupuytren's fasciectomy & small finger PIP joint volar capsular release and release of the volar plate, DOS: 08/14/23 He says he is doing well in regards to pain and is happy with the results of his surgery. He has some stiffness in his small finger but otherwise is doing well. He has a hx of right small finger and right index finger Dupuytren's contractures and had surgeries to correct these many years ago. He says he was initially born left handed, but he developed use of his right hand when he was a child. [facility] Medical History HTN (hypertension) Dupuytren's contracture of left hand Hx of spinal stenosis Elevated PSA Dupuytren's contracture of right hand Surgical History Hx of hand surgery History of back surgery Hx of colonoscopy Family History Father CAD (coronary artery disease) Brother Prostate cancer Social History Housing: House Alcohol intake: never Patient Tobacco Use Status: Never used Tobacco e-Cigarette/Vaping Use: Never Used Second Hand Smoke Exposure: No Current occupational status: employed Cognitive needs: No Hearing needs: No Vision needs: No Review of Systems Const All systems reviewed & are unremarkable except as noted in HPI and below Physical Exam Const General: no acute distress and alert Orientation/consciousness: patient oriented x3 Neuro General: patient oriented x3 Extrem Other: The patient was alert oriented and in no acute distress The incision is healing well with no erythema drainage or evidence of infection. Alternating sutures removed and Steri-Strips applied We worked on ROM exercises today in clinic, as he had some tightness in his small finger Before leaving clinic he could bring his ring finger closed to a fist, and his small finger ~1cm from his palm He can actively extend his small finger to ~10 degree PIP joint flexion contracture, and he was able to place his hand flat on the table, bring the PIP joint into full extension. Sensation is intact to the ulnar and radial digital nerves of the small finger Cap refill is brisk Psych Appearance: grossly normal Affect: normal affect Attitude: cooperative Assessment & Plan Assessment & Plan (1) Dupuytren's contracture of left hand: Comment: left 5th digit Code(s): M72.0 - Palmar fascial fibromatosis [Dupuytren] Plan Assessment & Plan: 1. Left small finger Dupuytren's contracture, S/P release & PIP joint volar capsular release and release of the volar plate Preoperatively: MCP 0/PIP 90 Now: MCP 0/PIP 0 today in clinic Half sutures removed today in clinic The patient appears to be doing well post-operatively I educated him about the post-operative course I ordered OT hand therapy for them to make a custom thermalmolded finger splint to wear at night. If he prefers the aluminium splint he was given today he may wear this instead. He was fitted for a finger spica splint which will hold his PIP & DIP joints in extension, to be worn only at night I discussed activity modifications, he is to lift nothing heavier than a cellphone for the next two weeks He will perform gentle ROM exercises at home, 20x daily He should avoid any underwater activities for the next 5 days He should gently massage about the incision site to reduce the risk of hypersensitivity He will follow up in 1 week for a wound check and removal of remaining sutures Scribed for Indu Bailey MD by Gerald Burgess medical transcription radiology, on 08/27/23 at 10:35 AM, EST. Orders: Orders OT Evaluation and Treatment Today M72.0 - Palmar fascial fibromatosis [Dupuytren] Coding Level of Care Code Global (31520) Diagnoses Dupuytren's contracture of left hand M72.0
== END 2023-08-27 10:45 | disposition home or self-care (01) ==
PROVIDERS: PCP Internal Medicine; Visit Provider Orthopaedic Surgery
DX: M72.0 Palmar fascial fibromatosis [Dupuytren] (principal)
CPT/HCPCS: 99024

== ENCOUNTER → 2023-08-27 10:14 | Outpatient (BNVA) | payer MEDICARE, SELFPAY | PROVIDERS: PCP Internal Medicine; Visit Provider Orthopaedic Surgery | DX: Z47.89 Encounter for other orthopedic aftercare (principal); Z98.890 Other specified postprocedural states; Z87.39 Personal history of other diseases of the musculoskeletal system and connective tissue | CPT/HCPCS: 99212 ==

== ENCOUNTER 2023-09-03 09:44 | Outpatient (AMB) | payer MEDICARE, SELFPAY ==
--- NOTE | 2023-09-03 09:59 | A.OFFVIS_ITS ---
Intake Intake Visit Reasons: PO-Lt SF Dupuytrens 08/14/23 Intake Note: Eduardo 78 year old male presents today for a post operative wound check of left small finger Dupuytrens on 08/14/23 AR. Patient reports he is doing well, states feeling tightness. He has been attending OT. Allergies No Known Allergies Allergy (Verified 09/03/23 10:03) HPI PO-Lt SF Dupuytrens 08/14/23 HPI Details 78-year-old male who returns to the [facility] today for post-op wound check of left small fingers Dupuytren, 08/14/[address] Bailey. He states he has tightness in his finger however he is doing well otherwise. He has been attending occupational therapy as instructed. He has no other concerns today. [facility] Medical History HTN (hypertension) Dupuytren's contracture of left hand Hx of spinal stenosis Elevated PSA Dupuytren's contracture of right hand Surgical History Hx of hand surgery History of back surgery Hx of colonoscopy Family History Father CAD (coronary artery disease) Brother Prostate cancer Social History Housing: House Alcohol intake: never Patient Tobacco Use Status: Never used Tobacco e-Cigarette/Vaping Use: Never Used Second Hand Smoke Exposure: No Current occupational status: employed Cognitive needs: No Hearing needs: No Vision needs: No Review of Systems Const All systems reviewed & are unremarkable except as noted in HPI and below Physical Exam Extrem Other: Left small finger: Incision clean, dry and intact. He can extend the digit with about 5 degrees of extension lag. He can bring the finger about 1 cm above the 2nd banerjee crease. NVI. Assessment & Plan Assessment & Plan (1) Dupuytren's contracture of left hand: Comment: left 5th digit Code(s): M72.0 - Palmar fascial fibromatosis [Dupuytren] Plan Remaining sutures removed today. He will continue working on therapy exercises three times a day. I did explain that he can wash the area lightly with warm soapy water but use caution to not soak the area. He will see us back for a routine postop appointment in 2-[address] Bailey, sooner if needed. Patient Instructions: Scribed for Kathy Dill PA-C, by Jeffery Schmitt emergency medical technician basic, on 09/03/2023 at 9:45 AM EST. I, Kathy Dill PA-C, have personally reviewed and agree with the information entered by the scribe. Coding Level of Care Code Global (75082) Diagnoses Dupuytren's contracture of left hand M72.0
== END 2023-09-03 10:09 | disposition home or self-care (01) ==
PROVIDERS: PCP Internal Medicine; Visit Provider Physician Assistant
DX: M72.0 Palmar fascial fibromatosis [Dupuytren] (principal)
CPT/HCPCS: 99024

== ENCOUNTER → 2023-09-03 09:44 | Outpatient (BNVA) | payer MEDICARE, SELFPAY | PROVIDERS: PCP Internal Medicine; Visit Provider Physician Assistant | DX: Z47.89 Encounter for other orthopedic aftercare (principal); Z98.890 Other specified postprocedural states; Z87.39 Personal history of other diseases of the musculoskeletal system and connective tissue | CPT/HCPCS: 99212 ==

== ENCOUNTER 2023-09-24 09:12 | Outpatient (AMB) | payer MEDICARE, SELFPAY ==
--- NOTE | 2023-09-24 09:19 | MHC.OFFVIS ---
Intake Vital Signs 09/24/23 09:23 Height 6 ft 2 in Weight 220 lb BMI 28.2 Intake Visit Reasons: PO- Lt SF Dupuytrens 08/14/23 ROM Check Intake Note: Eduardo 78 year old right hand dominant male presents today for a P/O visit for a ROM check for his left small finger Dupuytrens on 08/14/23 AR. Patient reports he is doing well, he has some mild swelling. Denies numbness and tingling. Allergies No Known Allergies Allergy (Verified 09/03/23 10:03) HPI PO- Lt SF Dupuytrens 08/14/23 ROM Check HPI Details Eduardo is a 78 year old right hand dominant man who returns S/P left small finger Partial Dupuytren's fasciectomy & small finger PIP joint volar capsular release and release of the volar plate, DOS: 08/14/23. He is here for a ROM check. He says he is doing well in regards to pain and is happy with the results of his surgery. He has some mild swelling in his small finger but says this is tolerable. He has been attending OT hand therapy and working on ROM exercises at home. He denies any numbness or tingling. He has started to return to golfing and is happy that he is able to do so. He has a hx of right small finger and right index finger Dupuytren's contractures and had surgeries to correct these many years ago. He says he was initially born left handed, but he developed use of his right hand when he was a child. [facility] Medical History HTN (hypertension) Dupuytren's contracture of left hand Hx of spinal stenosis Elevated PSA Dupuytren's contracture of right hand Surgical History Hx of hand surgery History of back surgery Hx of colonoscopy Family History Father CAD (coronary artery disease) Brother Prostate cancer Social History Housing: House Alcohol intake: never Patient Tobacco Use Status: Never used Tobacco e-Cigarette/Vaping Use: Never Used Second Hand Smoke Exposure: No Current occupational status: employed Cognitive needs: No Hearing needs: No Vision needs: No Review of Systems Const All systems reviewed & are unremarkable except as noted in HPI and below Physical Exam Vital Signs: BMI result Body Mass Index 28.2 Const General: no acute distress and alert Orientation/consciousness: patient oriented x3 Neuro General: patient oriented x3 Extrem Other: Evaluation of Upper Extremity: The patient is alert, oriented, and in no acute distress Neuro: Median, Ulnar, Radial nerves motor and sensory intact and sensation is normal to the tips of all digits Sensation is intact to the ulnar and radial digital nerves of the small finger Vascular: Cap refill brisk ROM: He can make a tight fist and extend all his digits Currently has a 40 degree contracture of the small finger PIP joint Sensation intact to the radial and ulnar tip of the small finger His surgical incision is well healed. Psych Appearance: grossly normal Affect: normal affect Attitude: cooperative Assessment & Plan Assessment & Plan (1) Dupuytren's contracture of left hand: Comment: left 5th digit Code(s): M72.0 - Palmar fascial fibromatosis [Dupuytren] Plan Assessment & Plan: 1. Left small finger Dupuytren's contracture, S/P release & PIP joint volar capsular release and release of the volar plate Preoperatively: MCP 0/PIP 90 Postoperatively: MCP 0/PIP 0 Now: MCP 0/PIP 40 today in clinic The patient appears to be doing well post-operatively He is happy with the results of his surgery I recommend he continue to work on ROM exercises at home He has one more OT hand therapy appointment He can follow up prn Scribed for Indu Bailey MD by Gerald Burgess, medical assistant float, on 09/24/23 at 9:50 AM, EST. Coding Level of Care Code Global (27550) Diagnoses Dupuytren's contracture of left hand M72.0
[2023-09-24 09:23] VITALS: BMI 28.2
== END 2023-09-24 10:09 | disposition home or self-care (01) ==
PROVIDERS: PCP Internal Medicine; Visit Provider Orthopaedic Surgery
DX: M72.0 Palmar fascial fibromatosis [Dupuytren] (principal)
CPT/HCPCS: 99024

== ENCOUNTER → 2023-09-24 09:12 | Outpatient (BNVA) | payer MEDICARE, SELFPAY | PROVIDERS: PCP Internal Medicine; Visit Provider Orthopaedic Surgery | DX: M72.0 Palmar fascial fibromatosis [Dupuytren] (principal); Z09 Encounter for follow-up examination after completed treatment for conditions other than malignant neoplasm; Z98.890 Other specified postprocedural states | CPT/HCPCS: 99212 ==

== ENCOUNTER 2023-10-02 08:00 | Outpatient (RCR) | payer MEDICARE, SELFPAY ==
--- NOTE | 2023-09-01 16:25 | MHC.OT.EP ---
[address] [phone] Occupational Therapy Plan of Care Patient Name: Eduardo Manjarrez Date of Evaluation: 09/01/23 Diagnosis: Left small finger Dupuytrens release Left small finger PIPj volar plate release Pain Location: 07/09 left small finger , discomfort with the exercises Pain Score: 1 Pain Scale Used: Numeric (0 - 10) Aggravating Factors: Hand exercises Alleviating Factors: Assessment: Pt is a 78 yo male with mixed hand dominance now 2 wks, 4 days s/p left small finger Dupuytens release and small finger volar plate release . Today he presents with report of discomfort only. AROM is slightly diminished and improved after a few exercises. Remaining sutures at to be removed in two days Pt will benefit from continued OT to maximize left small finger ROM and functional use of his left hand. Frequency and Duration: The patient will be seen 2 x wk x 3 wks Short Term Goals: Report compliance with night extension splinting for left small finger extension AROM Left small finger ext to neutral AROM left small finger flexion .5 cm to DPC Indep with HEP and scar management. Machine Group Leader Goals: Same as above Treatment Plan: Therapeutic Exercise Therapeutic Activity Home Exercise Program Splinting Patient Education Scar management Electronically Signed By: Yesy Killian OT CHT CLT Please Sign and return to therapist. Thank you once again for your referral.
--- NOTE | 2023-10-02 09:25 | MHC.OT.DC ---
[address] [phone] F: [phone] Occupational Therapy Discharge Note Patient Name: Eduardo Manjarrez Provider: Indu Bailey Diagnosis: Left small finger Dupuytrens release Left small finger PIPj volar plate release Date of Surgery: 08/14/23 Date of Evaluation: 09/01/23 Date of Discharge: Treatments to Date: 7 Cancellations to Date: No Shows to Date: Discharge Status: Discharge Summary: Decrease in small finger PIPj extension from last appointment 10 days ago from 35 degrees to 45 degrees extension. ROM improved to 40 degrees after treatment today. Goal met for digit flexion to DPC ,HEP and splint wear Eduardo will benefit from continued HEP and digit extension orthosis for continued improvement in digit extension Electronically Signed By: Yesy Killian OT CHT CLT Reviewed/agree with student documentation: Therapist: Please Sign and return to therapist, thank you for your referral.
== END 2023-10-02 09:27 | disposition home or self-care (01) ==
LOC: HO.OT 08:00
PROVIDERS: PCP Internal Medicine; Visit Provider Orthopaedic Surgery
DX: M72.0 Palmar fascial fibromatosis [Dupuytren] (principal)
CPT/HCPCS: 29130; 97110; 97140; 97166; 97760

== ENCOUNTER 2023-12-11 12:53 | Outpatient (AMB) | payer MEDICARE, SELFPAY ==
--- NOTE | 2023-12-11 12:57 | A.OFFVIS_ITS ---
Intake Vital Signs 12/11/23 12:58 Height 6 ft 2 in Weight 229 lb BMI 29.4 BP 122/74 Blood Pressure Location Lt brachial Position Sitting Pulse 89 Pulse Source Pulse Oximeter Pulse Oximetry (%) 97 Oxygen Delivery Method Room Air Intake Visit Reasons: AWV Intake Note: Pt is here today for AWV. Allergies No Known Allergies Allergy (Verified 12/11/23 13:57) Medication List - Last Reconciled 12/11/23 by Isabella Traylor MD aspirin (Adult Low Dose Aspirin) 81 mg PO DAILY cholecalciferol (vitamin D3) 50 mcg PO DAILY ibuprofen 600 mg PO Q6-8H PRN lisinopril 10 mg PO DAILY omega-3 fatty acids 1,000 mg PO DAILY HPI AWV HPI Details SWV ? 78 year old male presents for his subsequent annual wellness visit. He has hypertension currently stable controlled on lisinopril 10 mg daily. He goes to [facility] for follow-up on his elevated PSA. He is up-to-date with his screening colonoscopy seen by Dr. Carrero with no further testing needed. He had a lipid panel screening done 01/23/2023 with normal findings, and his last fasting blood sugar drawn the same time was also within normal limits. He is up-to-date with his pneumonia vaccine, shingles vaccine, as well as his COVID vaccination gets yearly flu shots. ? Medical / Social History Reviewed? Past Medical History ?Yes . ? Koi of Care / Care Team list updated ?Yes . ? Surgical/Hospitalization History ?Yes . ? Current Medications (including OTC and supplements) ?Yes . ? Family History ?Yes . ? Tobacco Control form ?Yes . ? AUDIT-C (Alcohol use) form ?Yes . ? Illicit drug use in Social History ?Yes . ? Current diagnosis of depression? ?No ? Appropriate PHQ2/PHQ9 completed ?Yes . ? Data entered by ?Livestock Auctioneer and reviewed by provider ? Fall Risk ? Fall History? Have you had any falls with injury in the past year? ?No . ? Have you had two or more falls in the past year? ?No . ? Fall Risk Assessment: ?No falls in the past year . ? HRA filled out by the patient, reviewed by Provider and scanned. ? SWV ? Balance? Romberg ?negative . ? Tandem walk ?Yes . ? Walk and Turn ?Yes . ? Rise from sit to stand ?Yes . ?Vision? Corrective lens ?no ? Vision screen ? Up-to-date, sees Dr. Rojas yearly ?Hearing? Whisper test ?pass . ?Written Plan?Completed. See Patient Documents.? [facility] Medical History (Updated 12/11/23 @ 17:55 by Isabella Traylor MD) HTN (hypertension) Dupuytren's contracture of left hand Hx of spinal stenosis Elevated PSA Dupuytren's contracture of right hand Surgical History Hx of hand surgery History of back surgery Hx of colonoscopy Family History Father CAD (coronary artery disease) Brother Prostate cancer Social History Housing: House Alcohol intake: never Patient Tobacco Use Status: Never used Tobacco e-Cigarette/Vaping Use: Never Used Second Hand Smoke Exposure: No Current occupational status: employed Cognitive needs: No Hearing needs: No Vision needs: No Questionnaire Medicare Wellness Checkup [age] What gender do you identify with?: male During the past 4 weeks, how much have you been bothered by emotional problems such as feeling anxious, depressed, irritable, sad or downhearted, and blue?: not at all During the past 4 weeks, has your physical & emotional health limited your social activities with family, friends, neighbors, or groups?: not at all During the past 4 weeks, how much bodily pain have you generally had?: no pain During the past 4 weeks, was someone available to help you if you needed & wanted help?: yes, as much as I wanted During the past 4 weeks, what was the hardest physical activity you could do for at least 2 minutes?: very heavy Can you get to places out of walking distance without help? (For eg., can you travel alone on buses, taxis or drive your car?): Yes Can you go shopping for groceries or clothes without someone's help?: Yes Can you prepare your own meals?: Yes Can you do your housework without help?: Yes Because of any health problems, do you need the help of another person with your personal care needs such as eating, bathing, dressing or getting around the house?: No Can you handle your own money without help?: Yes During the past 4 weeks, how would you rate your health in general?: very good During the past 4 weeks how have things been going for you?: very well; could hardly better Are you having difficulties driving your car?: no Do you always fasten your seat belt when you are in a car?: yes, usually During past 4 weeks, have you been bothered by the following: never: Falling or dizzy when standing up, Sexual problems?, Trouble eating well?, Teeth or denture problems?, Problems using the telephone? and Tiredness or fatigue? Have you fallen 2 or more times in the past year?: No Are you afraid of falling?: No Are you a smoker?: no During the past 4 weeks, how many drinks of wine, beer, or other alcoholic beverages did you have?: no alcohol at all Do you exercise for about 20 minutes 3 or more times a week?: yes, most of the time Have you been given information to help with the following?: yes: Hazards in your house that might hurt you? and yes: Keeping track of your medications? How often do you have trouble taking medicines the way you have been told to take them?: I always take medicine as prescribed How confident are you that you can control & manage most of your health problems?: very confident What is your race?: White Mini Mental State Exam (MMSE) Orientation What is the (year) (season) (date) (day) (month)?: year (2023), season (Spring), date (12/11/2023), day () and month (November) Where are we (state) (county) (town or city) (hospital) (floor)?: state ([place]), county ([place]), town or city ([place]) and hospital/clinic ([facility]) Score Score: 9 Activity of Daily Living Bathing - sponge bath, tub bath or shower: receives no assistance (gets in/out by self, if usual bathing means Dressing - getting clothes from closets & drawers, including inner/outer garments & fasteners.: gets clothes & gets completely dressed without help Toileting - going to the 'toilet room' for urine/bowel elimination & cleaning self/arranging clothes: goes to toilet room, cleans self, arranges clothes without help Transfer: moves in & out of bed and chair without help (may use support object) Continence: controls urination/bowel movements completely by self Feeding: feeds self without help Total Score: 0 Information obtained from: patient Using telephone: independent Traveling: independent Shopping: independent Preparing meals: independent Housework: independent Taking medicine: independent Managing money: independent PHQ-9 Over the last 2 weeks, how often have you been bothered by any of the following problems? 1. Little interest or pleasure in doing things: not at all 2. Feeling down, depressed, or hopeless: not at all 3. Trouble falling or staying asleep, or sleeping too much: not at all 4. Feeling tired or having little energy: not at all 5. Poor appetite or overeating: not at all 6. Feeling bad about yourself - or that you are a failure or have let yourself or your family down: not at all 7. Trouble concentrating on things, such as reading the newspaper or watching television: not at all 8. Moving or speaking so slowly that other people could have noticed. Or the opposite - being so fidgety or restless that you have been moving around a lot more than usual: not at all 9. Thoughts that you would be better off or of hurting yourself in some way: not at all Total score: 0 Depression Screening Interpretation: Negative Depression Screening Done: Yes 31745 - PHQ-9 Billing: Yes Source: Developed by Drs. Minh Shah, Koki Bell, Harpreet Browne and colleagues, with an educational jaquan from [employer] [facility] [employer]. Physical Exam Vital Signs: Last Vital Signs Pulse 89 12/11/23 12:58 BP 122/74 12/11/23 12:58 Pulse Ox 97 12/11/23 12:58 Oxygen Delivery Method Room Air 12/11/23 12:58 BMI result Body Mass Index 29.4 Assessment & Plan Assessment & Plan (1) Encounter for subsequent annual wellness visit (AWV) in Medicare patient: Code(s): Z00.00 - Encounter for general adult medical examination without abnormal findings Plan: Medical wellness checklist reviewed, discussed with patient and updated. Copy given. Up-to-date with all his vaccinations and screening procedures (2) Elevated PSA: Comment: Followed by Dr. Sanchez at [facility] Code(s): R97.20 - Elevated prostate specific antigen [PSA] Plan: Followed at [facility] (3) Essential hypertension: Code(s): I10 - Essential (primary) hypertension Plan: Continue lisinopril 10 mg daily Quality Reporting (2019) Depression/Bipolar (159/160/161/177) PHQ-9: Total score: 0 Coding Level of Care Code Medicare Subsequent (G0439) Diagnoses Encounter for subsequent annual wellness visit (AWV) in Medicare patient Z00.00 Elevated PSA R97.20 Essential hypertension I10 CPT Codes Advance Care Planning - Advance Care Planning discussion: On file, no changes ([id number]) Advance Care Planning - Time spent: 1-15 minutes, on File ([id number]) Advance Care Planning Advance Care Planning discussion: On file, no changes Date of discussion: 12/11/23 Who was present: Patient Forms completed: Health Care Proxy and MOLST Time spent: 1-15 minutes, on File Actual minutes spent: 15
[2023-12-11 12:58] VITALS: BP 122/74; PULSE 89; O2SAT 97; BMI 29.4
== END 2023-12-11 13:54 | disposition home or self-care (01) ==
PROVIDERS: PCP Internal Medicine; Visit Provider Internal Medicine
DX: Z00.00 Encounter for general adult medical examination without abnormal findings (principal); R97.20 Elevated prostate specific antigen [PSA]; I10 Essential (primary) hypertension
CPT/HCPCS: 1123F; G0439

== ENCOUNTER 2024-07-03 09:39 | Observation (INO) | payer MEDICARE, SELFPAY ==
[2024-07-03] VITALS (10 sets, daily range): BP systolic 108–144; BP diastolic 47–86; PULSE 73–108; RESP 16–20; TEMP 37–38.7; O2SAT 96–99; BMI 32.2; BMI 28.2
--- NOTE | ~2024-07-03 | CT_ITS ---
CLINICAL HISTORY: Syncope CT head without contrast Comparison: None Findings: No intra-axial mass, midline shift, hydrocephalus, or acute hemorrhage. No significant atrophy-like change or white matter disease. There is no sinus or mastoid fluid. The orbits are within normal limits. No skull fracture. IMPRESSION: 1. No acute intracranial findings This document has been electronically signed by: Fuad Magana MD on 07/03/2024 11:09:10
--- NOTE | ~2024-07-03 | CT_ITS ---
CLINICAL HISTORY: Syncope and fall CT cervical spine without contrast Comparison: None Findings: No fracture or acute malalignment. [id number] multilevel degenerative changes. No prevertebral soft tissue edema. Multiple thyroid nodules noted. Lung apices are clear. IMPRESSION: No acute findings. [id number] multilevel degenerative change. Multiple thyroid nodules. Outpatient ultrasound could be considered. This document has been electronically signed by: Fuad Magana MD on 07/03/2024 11:06:00
--- NOTE | ~2024-07-03 | XR_ITS ---
CLINICAL HISTORY: Syncope, fever 2 views chest Comparison: None Findings: Cardiac and mediastinal contours are normal. Mild interstitial prominence. No focal consolidation. No effusion. No pneumothorax. No acute osseous finding. Impression: Mild interstitial prominence. No focal consolidation. This document has been electronically signed by: Fuad Magana MD on 07/03/2024 11:55:04
--- NOTE | 2024-07-03 09:49 | ECG_ITS ---
Test Reason : SYNCOPE Blood Pressure : / mmHG Vent. Rate : 096 BPM Atrial Rate : 096 BPM P-R Int : 178 ms QRS Dur : 102 ms QT Int : 342 ms P-R-T Axes : 035 -52 018 degrees QTc Int : 432 ms Sinus rhythm with frequent , and consecutive Premature ventricular complexes Left anterior fascicular block Abnormal ECG No previous ECGs available Referred By: Panfilo Lopez Electronically Signed By:CYNDI FOUNTAIN MD
--- NOTE | 2024-07-03 09:51 | ED_ITS ---
HPI - Syncope General Chief Complaint: Syncope Stated Complaint: SYNCOPAL EPISODE Time Seen by Provider: 07/03/24 09:42 Source: patient, EMS and old records reviewed Mode of arrival: EMS Limitations: no limitations History of Present Illness ED Provider: DR. Lopez HPI narrative: A 79-year-old male brought in by ambulance for evaluation of syncopal episode and fever. Patient lives home by himself independently drove himself to a walk-in clinic for feeling febrile while he was waiting to be seen at urgent care patient syncopized in the waiting room and 911 was called on arrival patient was awake, alert, oriented, complaining of no symptoms except generalized weakness patient transported to the ED still complaining of generalized weakness patient do not remember the syncopal event, no chest pain, no shortness of breath, no weakness, no numbness. Related Data Home Medications ?Medication ?Instructions ?Recorded ?Confirmed aspirin 81 mg tablet,delayed 81 mg PO DAILY 12/14/20 08/14/23 release (Adult Low Dose Aspirin) cholecalciferol (vitamin D3) 50 50 mcg PO DAILY 12/14/20 08/14/23 mcg (2,000 unit) capsule omega-3 fatty acids 1,000 mg 1,000 mg PO DAILY 12/14/20 08/14/23 capsule Previous Rx's ?Medication ?Instructions ?Recorded ibuprofen 600 mg tablet 600 mg PO Q6-8H PRN pain #30 tabs 08/14/23 lisinopril 10 mg tablet 10 mg PO DAILY #90 tabs 03/22/24 Allergies Allergy/AdvReac Type Severity Reaction Status Date / Time No Known Allergies Allergy Verified 07/03/24 09:51 Review of Systems 2 Review of Systems: All other systems are reviewed and are negative Constitutional: Reports as per HPI and Reports no additional constitutional complaints Eyes: Reports as per HPI and Reports no additional eye complaints Reports system reviewed and no additional complaints, except as documented Cardiovascular: Reports as per HPI and Reports no additional cardiovascular complaints Respiratory: Reports as per HPI and Reports no additional respiratory complaints Gastrointestinal: Reports as per HPI and Reports no additional gastrointestinal complaints Genitourinary: Reports no additional female genitourinary complaints Musculoskeletal: Reports no additional musculoskeletal complaints Skin/Breast: Reports system reviewed and no additional complaints, except as docu Psychiatric: Reports no additional psychiatric complaints Endocrine: Reports no additional endocrine complaints Hematologic/Lymphatic: Reports no additional hematologic/lymphatic complaints Allergic/Immunologic: Reports no additional allergic/immunologic complaints Reports system reviewed and no additional complaints, except as documented and Reports Abnormal speech present PMFSH Past Medical History Medical History HTN (hypertension) Dupuytren's contracture of left hand Hx of spinal stenosis Elevated PSA Dupuytren's contracture of right hand Surgical History Hx of hand surgery History of back surgery Hx of colonoscopy Family History Family History Father CAD (coronary artery disease) Brother Prostate cancer Social History Social History Housing: House Alcohol intake: never Patient Tobacco Use Status: Never used Tobacco Smoked in Last 30 Days: No e-Cigarette/Vaping Use: Never Used Second Hand Smoke Exposure: No Use of substances other than those prescribed or required for medical reasons: No Advance Directives: Yes Advance Directives on File: Yes Advance Directives Date on File: 09/18/22 Do you have a plan to hurt others: No Plan Current occupational status: employed Cognitive needs: No Hearing needs: No Vision needs: No Physical Exam 2 Vital Signs: Vital Signs: Last Vital Signs Temp 98.9 F 07/03/24 10:11 Pulse 108 H 07/03/24 11:40 Resp 16 07/03/24 10:11 BP 132/72 07/03/24 11:40 Pulse Ox 97 07/03/24 10:11 O2 Del Method Room Air 07/03/24 10:11 BMI result Body Mass Index 32.2 Vital signs have been reviewed and appear to be correct. Blood pressure elevated. Heart rate normal. Respiratory rate normal. Temperature normal. Oxygen saturation normal. Appearance: Alert. Oriented X3. No acute distress. Head: Normal external exam. Normocephalic. Atraumatic. No [place] signs noted. No raccoon eyes noted Eyes: PERRLA. EOMI. Conjunctiva and sclera normal. Eyelids normal. ENT: TM's Normal. Pharynx normal. Uvula midline. Moist mucous membranes. No trismus noted. No drooling noted. No muffled voice noted. Neck: Normal inspection. Neck supple. FROM. No adenopathy. Thyroid Normal. No meningeal signs. No neck mass noted. CVS: Normal heart rate and rhythm. Heart sound normal. No murmurs noted. Pulses normal throughout. Respiratory: No respiratory distress. Painless inspiration. Breath sounds normal. No wheezes/rales/rhonchi noted. Chest nontender. No accessory muscle usage noted or decreased air movement noted. Abdomen: Soft and nontender. Bowel sounds normal in all 4 quadrants. No distention noted. No organomegaly noted. No visible injury noted. Back: No CVA tenderness. Full range of motion noted. Skin: Skin warm and dry. Normal skin color. Normal skin turgor. No rashes/lesions/lacerations noted. Extremities: No lower extremity edema. Extremities exhibit normal range of motion. Extremities nontender. Neuro: Oriented X 3. Cranial nerve exam: II-XII are grossly intact No motor deficit. No sensory deficit. Reflexes normal. Course Reevaluation(s) Reevaluation #1: S/p syncopal episode at waiting room of the urgent Care, positive for COVID patient is slightly orthostatic. No CP, no SOB. Will consider IV hydration. Admit. Time: 12:42 Medications Administered Discontinued Medications Generic Name Dose Route Start Last Admin Trade Name Freq PRN Reason Stop Dose Admin Sodium Chloride 1,000 mls @ 999 mls/hr 07/03/24 09:48 07/03/24 11:13 Ns IV 07/03/24 10:48 Infused .Q1H1M ONE Infusion Medical Decision Making Differential Diagnosis Differential Diagnoses: The differential diagnosis associated with the presentation includes (Dysrhythmia, ACS, dehydration, TIN, electrolyte derangement, severe anemia, pneumonia, pneumothorax, pleural effusion, viral infection.) Admission/Observation Consideration of admission/observation: Escalation of care including admission/observation considered Consult Healthcare Provider Management of the patient was discussed with: Hospitalist (Dr. Cowan) Lab Data MDM Lab Attestation statement: I reviewed the patient's lab results. 07/03/24 10:03 07/03/24 10:03 Labs: Lab Results 07/03/24 Range/Units 10:03 WBC 5.6 (4.8-10.8) X10*3/uL RBC 4.60 (4.60-5.80) X10*6/uL Hgb 14.6 (14.0-18.0) g/dl Hct 41.9 L (42.0-52.0) % MCV 91.1 (80.0-98.0) fL MCH 31.7 (27.0-33.0) pg MCHC 34.8 (31.0-36.0) g/dl RDW 12.8 (11.0-16.0) % Plt Count 211 (160-400) X10*3/uL MPV 9.2 L (9.4-12.4) fL Immature Gran % (Auto) 0.2 (0.0-0.4) % Neut % (Auto) 73.9 H (45-73) % Lymph % (Auto) 9.7 L (20-40) % [place] % (Auto) 14.9 H (2-11) % Eos % (Auto) 0.4 (0-4) % Baso % (Auto) 0.9 (0-2) % Lymph # (Auto) 0.5 L (1.2-4.9) X10*3/uL [place] # (Auto) 0.8 (0.1-1.2) X10*3/uL Eos # (Auto) 0.0 (0.0-0.4) X10*3/uL Baso # (Auto) 0.1 (0.0-0.2) X10*3/uL Abs Immat Gran (auto) 0.01 (0.00-0.03) X10*3/uL Absolute Neuts (auto) 4.1 (2.0-8.3) x10*3/uL Absolute Nucleated RBC 0.000 (0.0-0.012) X10*3/uL Nucleated RBC % (auto) 0.0 (0.0-0.2) /100WBC Sodium 139 (135-145) mmol/L Potassium 4.4 (3.3-5.1) mmol/L Chloride 109 H (96-108) mmol/L Carbon Dioxide 23 (22-29) mmol/L Anion Gap 11 L (12-20) BUN 13 (9-16) mg/dL Creatinine 1.35 (0.5-1.4) mg/dL Estim Creat Clear Calc 61.4 Estimated GFR 51 Random Glucose 132 H (60-115) mg/dL Lactic Acid 1.3 (0.5-2.0) mmol/L Calcium 9.5 (8.4-10.2) mg/dL Total Bilirubin 0.5 (0.0-1.0) mg/dL Direct Bilirubin 0.2 (0.0-0.5) mg/dL AST 29 (5-37) U/L ALT 27 (0-40) U/L Alkaline Phosphatase 52 (39-117) U/L Troponin I High Sens 8.6 (<3.5-35.0) ng/L B-Natriuretic Peptide 31 (<100) pg/mL Total Protein 7.3 (6.5-8.0) g/dL Albumin 4.0 (3.5-5.0) g/dL Lipase 24 (8-78) U/L Influenza Type A (PCR) NEGATIVE (Negative) Influenza Type B (PCR) NEGATIVE (Negative) RSV RNA Qual (PCR) NEGATIVE (Negative) SARS-CoV-2 RNA (RT-PCR) POSITIVE A (Negative) Independent Interpretation I performed an independent interpretation of an: Plain X-Ray (Mild interstitial prominence.) and CT Scan (Head/C-spine: No acute pathology.) Radiology Impression Discussion of test interpretation with radiology: I have reviewed the radiologist's reading. Discharge Plan Discharge Clinical Impression: Syncope and collapse, COVID-19 virus infection Patient Disposition: Admitted As Inpatient Print Language: [place]al[place]
--- NOTE | 2024-07-03 09:52 | PC.NURSE ---
Bety Lopez MD aware of sepsis notification
[2024-07-03] MEDS: 0.9 % Sodium Chloride 1,000 ML 999 ML IV (10:07)
--- NOTE | 2024-07-03 10:10 | PC.NURSE ---
20G peripheral IV inserted to pt.'s RAC. Tolerated well. Good blood return, and flushes well without difficulty or discomfort per pt.
[2024-07-03 10:12] LABS: MANUAL DIFF FLAG NO
[2024-07-03 10:15] LABS: Basophils Absolute Auto 0.1 X10*3/uL (0.0-0.2); Basophils Percent Auto 0.9 % (0-2); Eosinophils Percent Auto 0.4 % (0-4); Hematocrit 41.9 % (42.0-52.0); Hemoglobin 14.6 g/dl (14.0-18.0); Imm Gran Abs Auto 0.01 X10*3/uL (0.00-0.03); Imm Gran Pct Auto 0.2 % (0.0-0.4); Lymphocytes Absolute Auto 0.5 X10*3/uL (1.2-4.9); Lymphocytes Percent Auto 9.7 % (20-40); Mean Corpuscular HGB Conc 34.8 g/dl (31.0-36.0); Mean Corpuscular Hemoglobin 31.7 pg (27.0-33.0); Mean Corpuscular Volume 91.1 fL (80.0-98.0); Mean Platelet Volume 9.2 fL (9.4-12.4); Monocytes Absolute Auto 0.8 X10*3/uL (0.1-1.2); Monocytes Percent Auto 14.9 % (2-11); Neutrophils Absolute Auto 4.1 x10*3/uL (2.0-8.3); Neutrophils Percent Auto 73.9 % (45-73); Platelet Count 211 X10*3/uL (160-400); Red Cell Distribution Width 12.8 % (11.0-16.0); White Blood Count 5.6 X10*3/uL (4.8-10.8)
[2024-07-03 10:27] LABS: Alanine Aminotransferase 27 U/L (0-40); Alkaline Phosphatase 52 U/L (39-117); Anion Gap 11 (12-20); Aspartate Amino Transferase 29 U/L (5-37); Bilirubin Direct 0.2 mg/dL (0.0-0.5); Bilirubin Total 0.5 mg/dL (0.0-1.0); Blood Urea Nitrogen 13 mg/dL (9-16); Calcium 9.5 mg/dL (8.4-10.2); Carbon Dioxide 23 mmol/L (22-29); Chloride 109 mmol/L (96-108); Creatinine Clr Calc Pharmacy 61.4; Estimated Glomerular Filt Rate 51; Glucose Random 132 mg/dL (60-115); Lipase 24 U/L (8-78); Potassium 4.4 mmol/L (3.3-5.1); Sodium 139 mmol/L (135-145); Total Protein 7.3 g/dL (6.5-8.0)
[2024-07-03 10:28] LABS: Lactic Acid 1.3 mmol/L (0.5-2.0)
[2024-07-03 10:33] LABS: B Type Natriuretic Peptide 31 pg/mL (<100)
[2024-07-03 10:34] LABS: Troponin-I High Sensitivity 8.6 ng/L (<3.5-35.0)
[2024-07-03 10:53] LABS: Influenza A PCR NEGATIVE (Negative); Influenza B PCR NEGATIVE (Negative); Resp Syncy Virus RNA Qual PCR NEGATIVE (Negative); SARS COV2 PCR INHOUSE POSITIVE (Negative)
--- NOTE | 2024-07-03 13:13 | PHA.MEDREC ---
Addendum entered by Jarrdo Wright RP 07/03/24 14:16: MED REC CHECKED BY [facility] Original Note: Pharmacy Consult ? Medication Reconciliation Pharmacy has completed the medication reconciliation. Spoke with patient to confirm medications. He did not take any medications today. Last taken yesterday.
--- NOTE | 2024-07-03 15:05 | PM.IMHP ---
History of Present Illness Date of Service: 07/03/24 Chief Complaint: Syncope 79 year old man presenting to the ED after an episode of syncope at urgent care clinic. Patient reports being in his usual state of health recently and overnight developed fever and mild dry cough and decided to go to urgent clinic this morning. He reports as he was walking in he passed out. He denied any preceding symptoms, headache, visual changes, chest pain, shortness of breath, nausea, vomiting, diarrhea. When he woke up he saw EMS around him. He was brought to the emergency department, x-ray was negative for consolidation or effusion, labs all within acceptable limits, no fever, COVID positive with no hypoxia. Plan is to monitor patient overnight for syncope. Review of Systems Review of Systems: Denies any recent chills or decrease in appetite respiratory denies any shortness of breath, mild dry cough cardiovascular denied chest pain gastrointestinal denies any dysphagia abdominal pain nausea vomiting or diarrhea genitourinary denies any dysuria frequency or hematuria musculoskeletal denies any joint pain or swelling neuropsych denies any weakness or seizures all other systems reviewed are negative [facility] Medical History HTN (hypertension) Dupuytren's contracture of left hand Hx of spinal stenosis Elevated PSA Dupuytren's contracture of right hand Family History Father CAD (coronary artery disease) Brother Prostate cancer Surgical History Hx of hand surgery History of back surgery Hx of colonoscopy Social History Housing: House Alcohol intake: never Patient Tobacco Use Status: Never used Tobacco Smoked in Last 30 Days: No e-Cigarette/Vaping Use: Never Used Second Hand Smoke Exposure: No Use of substances other than those prescribed or required for medical reasons: No Advance Directives: Yes Advance Directives on File: Yes Advance Directives Date on File: 09/18/22 Do you have a plan to hurt others: No Plan Current occupational status: employed Cognitive needs: No Hearing needs: No Vision needs: No Meds Allergies Allergy/AdvReac Type Severity Reaction Status Date / Time No Known Allergies Allergy Verified 07/03/24 09:51 Active Medications: Current Medications Acetaminophen (Acetaminophen 325 Mg Tablet) 650 mg PO Q6H PRN PRN Reason: Pain, Mild 1-3,fever,headache Calcium Carbonate (Calcium Carbonate 750 Mg Tab.Chew) 750 mg PO Q4H PRN PRN Reason: Heartburn Heparin Sodium (Porcine) (Heparin Sodium,Porcine 5,000 Unit/Ml Vial) 5,000 unit SUBCUT Q12H [place] Magnesium Hydroxide (Milk Of Magnesia 30 Ml Oral.Susp) 30 ml PO DAILY PRN PRN Reason: Constipation Melatonin (Melatonin 3 Mg Tablet) 6 mg PO BEDTIME PRN PRN Reason: Insomnia Sodium Chloride (0.9 % Sodium Chloride Flush 3 Ml Syringe) 3 ml IVFLUSH QSHIFT [place] Home Medications ?Medication ?Instructions ?Recorded ?Confirmed ?Last Taken ?Type aspirin 81 mg tablet,delayed 81 mg PO DAILY 12/14/20 07/03/24 07/02/24 History release (Adult Low Dose Aspirin) cholecalciferol (vitamin D3) 50 50 mcg PO DAILY 12/14/20 07/03/24 07/02/24 History mcg (2,000 unit) capsule omega-3 fatty acids 1,000 mg 1,000 mg PO DAILY 12/14/20 07/03/24 07/02/24 History capsule Physical Exam Vital Signs and Narrative: Vital Signs: Last Vital Signs Temp 98.7 F 07/03/24 14:38 Pulse 87 07/03/24 14:38 Resp 19 07/03/24 14:38 BP 114/52 L 07/03/24 14:38 Pulse Ox 98 07/03/24 14:38 O2 Del Method Room Air 07/03/24 14:38 BMI result Body Mass Index 32.2 Appearing in no acute distress head is normocephalic atraumatic eyes pupils are PERRLA sclera is anicteric mouth throat mucous membranes are intact and moist neck is supple no lymphadenopathy, no JVD noted lung sounds are clear to auscultation heart regular rate rhythm, clear S1, S2 positive bowel sounds, abdomen is soft, nontender neuro patient is alert x3, no focal deficits Results Labs 07/03/24 10:03 07/03/24 10:03 Labs: Laboratory Results - last 24 hr 07/03/24 10:03 MCV 91.1 MCH 31.7 MCHC 34.8 RDW 12.8 Plt Count 211 MPV 9.2 L Immature Gran % (Auto) 0.2 Neut % (Auto) 73.9 H Lymph % (Auto) 9.7 L [place] % (Auto) 14.9 H Eos % (Auto) 0.4 Baso % (Auto) 0.9 Lymph # (Auto) 0.5 L [place] # (Auto) 0.8 Eos # (Auto) 0.0 Baso # (Auto) 0.1 Abs Immat Gran (auto) 0.01 Absolute Neuts (auto) 4.1 Absolute Nucleated RBC 0.000 Nucleated RBC % (auto) 0.0 Anion Gap 11 L Estim Creat Clear Calc 61.4 Estimated GFR 51 Random Glucose 132 H Lactic Acid 1.3 Calcium 9.5 Total Bilirubin 0.5 Direct Bilirubin 0.2 AST 29 ALT 27 Alkaline Phosphatase 52 Troponin I High Sens 8.6 B-Natriuretic Peptide 31 Total Protein 7.3 Albumin 4.0 Lipase 24 Influenza Type A (PCR) NEGATIVE Influenza Type B (PCR) NEGATIVE RSV RNA Qual (PCR) NEGATIVE SARS-CoV-2 RNA (RT-PCR) POSITIVE A Assessment and Plan (1) Syncope and collapse: Status: Acute Plan [address] don observation due to an episode on syncope at urgent care clinic, found to have covid 19 Syncope unknown etiology reported feeling weak no hx of cardiac arrythmia, no hypoxia Multiple PVCs noted on EKG, Cardiology consultation new covid dx neg orthostatics monitor on tele Covid 19 no hypoxia supportive care monitor resp status Hypertension continue lisinopril DVT prophylaxis with heparin full code Quality Stroke Does the patient have a stroke diagnosis?: No VTE Prior VTE?: No VTE Risk Level:: Medical - moderate - high VTE Device Contraindication: Treatment Not Indicated VTE Drug Contraindication: N/A - Med Ordered
[2024-07-03] MEDS: Heparin Sodium,Porcine 5,000 UNIT/ML VIAL 5000 UNIT SUBCUT (16:02)
[2024-07-03 16:10] LABS: Appearance Urine Clear; Color Urine Yellow; Glucose Urine UA Negative (Negative); Leukocyte Esterase Urine Negative (Negative); Nitrite Urine Negative (Negative); Specific Gravity - Urine 1.025 (1.005-1.025); UMIC TRIGGER UACC YES; Urine Blood Negative (Negative); Urine Ketones Trace mg/dL (Negative); Urine Protein 30 (1+) mg/dL (Neg-Trace)
[2024-07-03 16:25] LABS: Bacteria Urine None Seen (None Seen); Hyaline Casts Urine 0-2 /LPF (0-2); RBC Urine 0-2 /HPF (0-2); Squamous Epithelial Cell Urine 0-2 /HPF (0-2); WBC Urine 0-5 /HPF (0-5)
[2024-07-04] VITALS (10 sets, daily range): BP systolic 128–152; BP diastolic 60–72; PULSE 71–86; RESP 16–19; TEMP 36.7–37.6; O2SAT 96–99
[2024-07-04] MEDS: 0.9 % Sodium Chloride Flush 3 ML SYRINGE IVFLUSH ×2 (00:30→07:48)
[2024-07-04] MEDS: Heparin Sodium,Porcine 5,000 UNIT/ML VIAL 5000 UNIT SUBCUT ×2 (03:34→15:29)
[2024-07-04 07:12] LABS: Basophils Percent Auto 0.8 % (0-2); Hematocrit 37.2 % (42.0-52.0); Hemoglobin 12.7 g/dl (14.0-18.0); Imm Gran Abs Auto 0.01 X10*3/uL (0.00-0.03); Imm Gran Pct Auto 0.2 % (0.0-0.4); Lymphocytes Percent Auto 40.4 % (20-40); MANUAL DIFF FLAG SCAN; Mean Corpuscular HGB Conc 34.1 g/dl (31.0-36.0); Mean Corpuscular Hemoglobin 31.5 pg (27.0-33.0); Mean Corpuscular Volume 92.3 fL (80.0-98.0); Mean Platelet Volume 9.8 fL (9.4-12.4); Monocytes Absolute Auto 1.1 X10*3/uL (0.1-1.2); Monocytes Percent Auto 22.3 % (2-11); Neutrophils Absolute Auto 1.8 x10*3/uL (2.0-8.3); Neutrophils Percent Auto 36.3 % (45-73); Platelet Count 163 X10*3/uL (160-400); Red Blood Count 4.03 X10*6/uL (4.60-5.80); Red Cell Distribution Width 13.2 % (11.0-16.0); SCAN SMEAR FLAG 1; White Blood Count 4.9 X10*3/uL (4.8-10.8)
[2024-07-04 07:21] LABS: Anion Gap 11 (12-20); Blood Urea Nitrogen 17 mg/dL (9-16); Calcium 8.4 mg/dL (8.4-10.2); Carbon Dioxide 21 mmol/L (22-29); Chloride 110 mmol/L (96-108); Creatinine Clr Calc Pharmacy 61.4; Estimated Glomerular Filt Rate 55; Glucose Random 93 mg/dL (60-115); Sodium 138 mmol/L (135-145)
[2024-07-04 07:38] LABS: SLIDE REVIEW VERIFIED
[2024-07-04] MEDS: Aspirin Enteric Coated 81 MG TABLET.DR PO (07:48)
[2024-07-04] MEDS: lisinopriL 10 MG TABLET PO (07:49)
[2024-07-04] MEDS: Cholecalciferol (Vitamin D3) 25 MCG TABLET 50 MCG PO (07:49)
--- NOTE | 2024-07-04 11:12 | HO.PM.IMPN ---
Subjective Subjective Date of Service: 07/04/24 Review of Systems Follow up syncope no pain or discomfort Physical Exam Vital Signs: Vital Signs: Last Vital Signs Temp 98.0 F 07/04/24 07:38 Pulse 73 07/04/24 07:38 Resp 17 07/04/24 07:38 BP 135/64 07/04/24 07:49 Pulse Ox 96 07/04/24 07:38 O2 Del Method Room Air 07/04/24 07:38 BMI result Body Mass Index 28.2 Appearing in no acute distress lung sounds are clear to auscultation heart regular rate rhythm, clear S1, S2 positive bowel sounds, abdomen is soft, nontender neuro patient is alert x3, no focal deficits Objective Data Active Medications Acetaminophen (Acetaminophen 325 Mg Tablet) 650 mg PO Q6H PRN PRN Reason: Pain, Mild 1-3,fever,headache Aspirin (Aspirin Enteric Coated 81 Mg Tablet.Dr) 81 mg PO DAILY [facility] Last Admin: 07/04/24 07:48 Dose: 81 mg Documented By: GREG Calcium Carbonate (Calcium Carbonate 750 Mg Tab.Chew) 750 mg PO Q4H PRN PRN Reason: Heartburn Heparin Sodium (Porcine) (Heparin Sodium,Porcine 5,000 Unit/Ml Vial) 5,000 unit SUBCUT Q12H [facility] Last Admin: 07/04/24 03:34 Dose: 5,000 unit Documented By: JAYME Lisinopril (Lisinopril 10 Mg Tablet) 10 mg PO DAILY [facility]; Protocol Last Admin: 07/04/24 07:49 Dose: 10 mg Documented By: GREG Magnesium Hydroxide (Milk Of Magnesia 30 Ml Oral.Susp) 30 ml PO DAILY PRN PRN Reason: Constipation Melatonin (Melatonin 3 Mg Tablet) 6 mg PO BEDTIME PRN PRN Reason: Insomnia Sodium Chloride (0.9 % Sodium Chloride Flush 3 Ml Syringe) 3 ml IVFLUSH QSHIFT [facility] Last Admin: 07/04/24 07:48 Dose: 3 ml Documented By: GREG Vitamin D (Cholecalciferol (Vitamin D3) 25 Mcg Tablet) 50 mcg PO DAILY [facility] Last Admin: 07/04/24 07:49 Dose: 50 mcg Documented By: GREG Labs 07/04/24 06:37 07/04/24 06:37 Labs: Laboratory Results - last 24 hr 07/03/24 07/04/24 15:59 06:37 MCV 92.3 MCH 31.5 MCHC 34.1 RDW 13.2 Plt Count 163 MPV 9.8 Immature Gran % (Auto) 0.2 Neut % (Auto) 36.3 L Lymph % (Auto) 40.4 H [place] % (Auto) 22.3 H Eos % (Auto) 0.0 Baso % (Auto) 0.8 Lymph # (Auto) 2.0 [place] # (Auto) 1.1 Eos # (Auto) 0.0 Baso # (Auto) 0.0 Abs Immat Gran (auto) 0.01 Absolute Neuts (auto) 1.8 L Absolute Nucleated RBC 0.000 Nucleated RBC % (auto) 0.0 Smear Tech's Comments VERIFIED Anion Gap 11 L Estim Creat Clear Calc 61.4 Estimated GFR 55 Random Glucose 93 Calcium 8.4 D Urine Color Yellow Urine Appearance Clear Urine pH 6.0 Ur Specific [place] 1.025 Urine Protein 30 (1+) H Urine Glucose (UA) Negative Urine Ketones Trace Urine Blood Negative Urine Nitrite Negative Ur Leukocyte Esterase Negative Urine RBC 0-2 Urine WBC 0-5 Ur Squamous Epith Cells 0-2 Urine Bacteria None Seen Hyaline Casts 0-2 Assessment and Plan (1) Essential hypertension: Status: Acute Plan [address] don observation due to an episode on syncope at urgent care clinic, found to have covid 19 Syncope unknown etiology, ? orthostasis reported feeling weak no hx of cardiac arrythmia, no hypoxia Multiple PVCs noted on EKG, Cardiology consultation>echo tomorrow, IV fluids new covid dx monitor on tele>no severe arrythmia on tele Covid 19 no hypoxia supportive care monitor resp status Hypertension continue lisinopril DVT prophylaxis with heparin full code Quality Stroke Does the patient have a stroke diagnosis?: No VTE Prior VTE?: No VTE Risk Level:: Medical - moderate - high VTE Device Contraindication: Treatment Not Indicated VTE Drug Contraindication: N/A - Med Ordered
--- NOTE | 2024-07-04 11:55 | PM.CNCAR ---
History of Present Illness History of Present Illness Date of Service: 07/04/24 Requesting physician: Rosangela Mclain Consult reason: other (Syncope) Chief complaint: Syncope, covid Narrative: I was consulted to see Eduardo in cardiology consultation today. He is a pleasant 79-year-old male with prior history of hypertension well controlled as per him. Very functional, says goes to the gym 5 days a week and continues to work part-time. He said he was usual state of health day before yesterday at nighttime he felt shivering and felt really warm took his temperature was 104 degrees F. he then was in bed all night. Following day went to urgent Care was standing in line and he passed out. He was brought to the emergency room. In the Emergency was noted to have low blood pressure. COVID positive. Patient was admitted for observation. EKG noted frequent PVCs. He has no prior cardiac history. Denies any prior history of congestive heart failure, myocardial infarction, coronary artery disease, cardiac arrhythmias. He said functionally and with activity does not get any cardiac symptoms. He has never had syncopal episodes in the past. He said he may have had a poor oral intake over the last couple of days. Orthostatic vitals just done appear to be negative. Review of Systems Constitutional: Constitutional: Reports body ache(s), Reports chills, Reports fever(s) and Reports weakness Eyes: Eyes: Reports no additional eye complaints Cardiovascular: Cardiovascular: Denies chest pain, Denies rapid heart rate, Reports lightheadedness, Reports Loss of Consciousness, Denies palpitations and Denies dyspnea Respiratory: Respiratory: Denies no additional respiratory complaints and Denies dyspnea Gastrointestinal: Gastrointestinal: Reports no additional gastrointestinal complaints Genitourinary: Genitourinary: Reports no additional male genitourinary complaints Neurologic: Reports system reviewed and no additional complaints, except as documented and Reports weakness Psychiatric: Psychiatric: Reports no additional psychiatric complaints Endocrine: Endocrine: Denies palpitations Allergic/Immunologic: Allergic/Immunologic: Reports no additional allergic/immunologic complaints [facility] Past Medical History Medical History HTN (hypertension) Dupuytren's contracture of left hand Hx of spinal stenosis Elevated PSA Dupuytren's contracture of right hand Family History Family History Father CAD (coronary artery disease) Brother Prostate cancer Surgical History Surgical History Hx of hand surgery History of back surgery Hx of colonoscopy Social History Social History Household Members: None Housing: House Do you presently have visiting nurse or other home services: No Alcohol intake: never Patient Tobacco Use Status: Never used Tobacco e-Cigarette/Vaping Use: Never Used Second Hand Smoke Exposure: No Advance Directives Date on File: 09/18/22 Current occupational status: employed Cognitive needs: No Hearing needs: No Vision needs: No Meds Allergies Allergy/AdvReac Type Severity Reaction Status Date / Time No Known Allergies Allergy Verified 07/03/24 09:51 Active Medications: Current Medications Acetaminophen (Acetaminophen 325 Mg Tablet) 650 mg PO Q6H PRN PRN Reason: Pain, Mild 1-3,fever,headache Aspirin (Aspirin Enteric Coated 81 Mg Tablet.Dr) 81 mg PO DAILY [facility] Last Admin: 07/04/24 07:48 Dose: 81 mg Calcium Carbonate (Calcium Carbonate 750 Mg Tab.Chew) 750 mg PO Q4H PRN PRN Reason: Heartburn Heparin Sodium (Porcine) (Heparin Sodium,Porcine 5,000 Unit/Ml Vial) 5,000 unit SUBCUT Q12H [facility] Last Admin: 07/04/24 03:34 Dose: 5,000 unit Lactated Ringer's (Lr) 1,000 mls @ 75 mls/hr IVCONT .[id number] [facility] Lisinopril (Lisinopril 10 Mg Tablet) 10 mg PO DAILY [facility]; Protocol Last Admin: 07/04/24 07:49 Dose: 10 mg Magnesium Hydroxide (Milk Of Magnesia 30 Ml Oral.Susp) 30 ml PO DAILY PRN PRN Reason: Constipation Melatonin (Melatonin 3 Mg Tablet) 6 mg PO BEDTIME PRN PRN Reason: Insomnia Sodium Chloride (0.9 % Sodium Chloride Flush 3 Ml Syringe) 3 ml IVFLUSH QSHIFT [facility] Last Admin: 07/04/24 07:48 Dose: 3 ml Vitamin D (Cholecalciferol (Vitamin D3) 25 Mcg Tablet) 50 mcg PO DAILY [facility] Last Admin: 07/04/24 07:49 Dose: 50 mcg Home Medications ?Medication ?Instructions ?Recorded ?Confirmed ?Last Taken ?Type aspirin 81 mg tablet,delayed 81 mg PO DAILY 12/14/20 07/03/24 07/02/24 History release (Adult Low Dose Aspirin) cholecalciferol (vitamin D3) 50 50 mcg PO DAILY 12/14/20 07/03/24 07/02/24 History mcg (2,000 unit) capsule omega-3 fatty acids 1,000 mg 1,000 mg PO DAILY 12/14/20 07/03/24 07/02/24 History capsule Physical Exam Vital Signs: Vital Signs: Last Vital Signs Temp 98.6 F 07/04/24 11:44 Pulse 72 07/04/24 11:44 Resp 19 07/04/24 11:44 BP 136/62 07/04/24 11:44 Pulse Ox 97 07/04/24 11:44 O2 Del Method Room Air 07/04/24 11:44 BMI result Body Mass Index 28.2 Const: General: cooperative, comfortable, no acute distress, alert, awake and Physically active Nutritional Appearance: average body habitus Orientation/consciousness: patient oriented x3 Limitations: no limitations HEENT: Head: Yes normocephalic and Yes atraumatic Neck: Neck: Yes trachea midline, Yes supple and Yes no JVD Resp: Effort & Inspection: normal respiratory effort Auscultation: clear to auscultation bilaterally Cardio: Jugular venous distension: no JVD Palpation: normal PMI Rate: regular rate Rhythm: abnormal rhythm with ectopic beats Heart sounds: S1 normal heart sound present, S2 normal heart sound present, no click, no gallops and no murmurs GI: Auscultation: normal bowel sounds Skin: General skin exam: no rashes or lesions noted Neuro: General: patient oriented x3 and no focal motor deficits Extrem: General: Yes no clubbing, cyanosis or edema Objective Labs and Meds 07/04/24 06:37 07/04/24 06:37 Lab results: Laboratory Results - last 24 hr 07/03/24 07/04/24 15:59 06:37 WBC 4.9 RBC 4.03 L Hgb 12.7 L Hct 37.2 L MCV 92.3 MCH 31.5 MCHC 34.1 RDW 13.2 Plt Count 163 MPV 9.8 Immature Gran % (Auto) 0.2 Neut % (Auto) 36.3 L Lymph % (Auto) 40.4 H [place] % (Auto) 22.3 H Eos % (Auto) 0.0 Baso % (Auto) 0.8 Lymph # (Auto) 2.0 [place] # (Auto) 1.1 Eos # (Auto) 0.0 Baso # (Auto) 0.0 Abs Immat Gran (auto) 0.01 Absolute Neuts (auto) 1.8 L Absolute Nucleated RBC 0.000 Nucleated RBC % (auto) 0.0 Smear Tech's Comments VERIFIED Sodium 138 Potassium 4.0 Chloride 110 H Carbon Dioxide 21 L Anion Gap 11 L BUN 17 H Creatinine 1.27 Estim Creat Clear Calc 61.4 Estimated GFR 55 Random Glucose 93 Calcium 8.4 D Urine Color Yellow Urine Appearance Clear Urine pH 6.0 Ur Specific [place] 1.025 Urine Protein 30 (1+) H Urine Glucose (UA) Negative Urine Ketones Trace Urine Blood Negative Urine Nitrite Negative Ur Leukocyte Esterase Negative Urine RBC 0-2 Urine WBC 0-5 Ur Squamous Epith Cells 0-2 Urine Bacteria None Seen Hyaline Casts 0-2 Assessment and Plan (1) Syncope and collapse: Status: Acute Syncope in this elderly gentleman by history appears to be most likely orthostatic most likely related to acute viral infection and relative hypovolemia. Orthostasis currently is within normal limits. Noted cardiac arrhythmias with frequent PVCs. Will obtain echocardiogram to monitor assess LV function. Further treatment based on findings. Overnight continue IV hydration with normal saline 75 cc an hour. Check orthostatics tomorrow. Observed for 1 more day. Management was discussed with him. Continue supportive treatment for his viral infection along with treatment aggressively of his fever. Clinically appears to be stable at this point time. Hold off on his antihypertensive therapy for now. Will follow with you Procedures Date of Service Date of Service: 07/04/24
[2024-07-04] MEDS: Lactated Ringers 1,000 ML 75 ML IVCONT (12:08)
--- NOTE | 2024-07-04 16:16 | MHC.CM.PN ---
PT COVID +, CM SPOKE TO HIS HCP/BROTHER, TERRY [phone] PT LIVES ALONE AND IS INDEPENDENT WITH ALL CARE AND MOBILITY HE HAS A HCP ON FILE PCP: PHILL DAILEY [facility] DELIVERED DCP: HOME BROTHER TO TRANSPORT PLEASE LET TERRY KNOW EARLY POSSIBLE ABOUT POTENTIAL DC
[2024-07-05] MEDS: Lactated Ringers 1,000 ML 75 ML IVCONT (01:15)
[2024-07-05 03:49] VITALS: BP 145/68; PULSE 76; RESP 16; TEMP 37.6; O2SAT 99
[2024-07-05] MEDS: Heparin Sodium,Porcine 5,000 UNIT/ML VIAL 5000 UNIT SUBCUT ×2 (03:56→15:35)
--- NOTE | 2024-07-05 07:00 | CA_ITS ---
Transthoracic Echocardiogram Patient (Last, First, Middle): Eduardo Manjarrez T Gender: Male Date of : 1945 Age: 79 Procedure Date: 07/05/2024 Procedure Type: Transthoracic Echocardiogram [place] [facility] [place]: 187.96 cm Weight: 99.79 kg BSA: 2.26 m2 Heart Rate: 81 bpm BP: 145 / 68 mmHg Hat Lining Paster: JOSEPH Referring MD: Rosangela Mclain NP Symptoms: syncope Study Quality: Fair ECG Rhythm: Sinus Conclusions: - The left ventricular systolic function is normal. The visually estimated ejection fraction is between 60-65%. - No obvious valvular pathology seen on this study. Findings Left Ventricle Normal left ventricular cavity size. There is mildly increased left ventricular wall thickness. The left ventricular systolic function is normal. The visually estimated ejection fraction is between 60-65%. Diastolic function is normal for age. Contrast not used due to lack of IV access. No overt wall motion abnormality, but sub-optimal assessment. Right Ventricle Normal right ventricular cavity size and systolic function. Atria Both atria are normal in size. Aortic Valve There is a normal trileaflet aortic valve. There is mild calcification of the aortic valve. There is no aortic valve stenosis. There is no aortic valve regurgitation. Mitral Valve The mitral valve appears normal. There is trace mitral valve regurgitation. There is no mitral valve stenosis. Pulmonic Valve The pulmonic valve is likely normal. Tricuspid Valve There is trace tricuspid valve regurgitation. There is no evidence of pulmonary hypertension. Great Vessels The asc aorta and aortic arch are normal in size. Venous The inferior vena cava is normal in size and collapses greater than 50% with inspiration. Pericardium/Pleural There is no evidence of pericardial effusion. Prior Study Comparison No prior study available for comparison. Recommendations, Care & Conclusions No obvious valvular pathology seen on this study. Recommend contrast in the future to improve endocardial definition. Measurements 2D Linear Measurements IVSd: 1.25 0.6-0.9/0.6-1.0 cm LVIDd: 5.05 3.9-5.3/4.2-5.9 cm LVIDd Index: 2.23 2.4-3.2/2.2-3.1 cm/m2 LVIDs: 3.28 2.0-3.6 cm LVPWd: 1.15 0.7-1.1 cm LA Diam: 3.90 2.7-3.8/3.0-4.0 cm LAIDs Index: 1.73 1.5-2.3 cm/m2 LV Mass: 296.09 67-162/88-224 g LV Mass Index: 131.02 43-95/49-115 g/m2 LVOT Diam: 2.00 3.0+(-)1.3 cm Mitral Valve MV Pk E: 0.79 MV PK A: 0.96 MV Decel Time: 246.00 E/A: 0.80 E'Lateral: 7.76 E'Medial: 6.64 E/E' Med: 11.90 E/E' Lat: 10.20 PHT: 72.00 MVA PHT: 3.06 Decel [place]: 3.20 Aortic Valve AoV Pk Torey: 1.60 AoV Mn Torey: 1.13 AoV VTI: 0.35 AoV Pk Grad: 10.00 Aov Mn Grad: 6.00 RAIMUNDO Cont.VTI: 2.04 LVOT LVOT Pk Torey: 1.09 LVOT Mn Torey: 0.81 LVOT VTI: 0.23 LVOT Pk Grad: 5.00 LVOT Mn Grad: 3.00 LVOT Diam: 2.00 LVOT Area: 3.14 Diastolic Function MV Pk E: 0.79 MV Pk A: 0.96 E/A: 0.80 E'Medial: 6.64 E/E' Med: 11.90 E' Laterial: 7.76 E/E' Lat: 10.20 Tricuspid Valve TR Pk Torey: 2.03 TR Pk Grad: 16.00 RA Press: 3.00 RVSP: 19.00 Great Vessels Aorta Sinus of Valsalva: 3.50 2.0-3.5 cm Ao Asc: 3.80 2.1-3.4 cm Ao Arch: 3.00 Pulmonary Valve PV Pk Torey: 1.10 Peak PV Grad: 5.00 Updated in Other Vendor System with Status of Final Mitchell Shah MD electronically signed on 07/05/2024 3:58:23 PM with status of Final
[2024-07-05 07:51] VITALS: BP 155/72; PULSE 64; RESP 18; TEMP 37.2; O2SAT 95
[2024-07-05 09:45] VITALS: BP 155/72
[2024-07-05] MEDS: Aspirin Enteric Coated 81 MG TABLET.DR PO (09:45)
[2024-07-05] MEDS: lisinopriL 10 MG TABLET PO (09:45)
[2024-07-05] MEDS: Cholecalciferol (Vitamin D3) 25 MCG TABLET 50 MCG PO (09:46)
--- NOTE | 2024-07-05 10:15 | PM.PNCARD ---
Subjective Subjective Date of Service: 07/05/24 Interval history: He states that he feels fine today. No new complaints. Review of Systems Review of Systems Yes all other systems are reviewed and are negative Constitutional: Reports as per HPI and Reports no additional constitutional complaints Eyes: Reports as per HPI and Denies no additional eye complaints Denies system reviewed and no additional complaints, except as documented and Reports as per HPI Cardiovascular: Reports as per HPI, Reports no additional cardiovascular complaints, Denies acrocyanosis, Denies cool extremities, Denies chest pain, Denies leg edema, Denies lightheadedness, Denies palpitations and Denies dyspnea Respiratory: Reports as per HPI, Denies no additional respiratory complaints and Denies dyspnea Gastrointestinal: Reports as per HPI and Denies no additional gastrointestinal complaints Genitourinary: Reports no additional male genitourinary complaints and Reports as per HPI Musculoskeletal: Reports no additional musculoskeletal complaints and Reports as per HPI Skin/Breast: Reports system reviewed and no additional complaints, except as docu Reports system reviewed and no additional complaints, except as documented and Reports as per HPI Psychiatric: Reports no additional psychiatric complaints and Reports as per HPI Endocrine: Reports no additional endocrine complaints, Reports as per HPI and Denies palpitations Hematologic/Lymphatic: Reports no additional hematologic/lymphatic complaints and Reports as per HPI Allergic/Immunologic: Reports no additional allergic/immunologic complaints and Reports as per HPI Physical Exam Vital Signs: Last Vital Signs Temp 99.0 F 07/05/24 07:51 Pulse 64 07/05/24 07:51 Resp 18 07/05/24 07:51 BP 155/72 H 07/05/24 09:45 Pulse Ox 95 07/05/24 07:51 O2 Del Method Room Air 07/05/24 07:51 BMI result Body Mass Index 28.2 Const General: comfortable and no acute distress Orientation/consciousness: patient oriented x3 HEENT Other: Unremarkable Head: Yes normal to inspection Neck Neck: Yes normal visual inspection Chest Chest palpation & inspection: normal inspection of the chest Resp Auscultation: clear to auscultation bilaterally Cardio Palpation: normal PMI Heart sounds: S1 normal heart sound present, S2 normal heart sound present, no gallops, no murmurs and no rubs GI Palpation (GI): Soft to palpation Back/Spine/Pelvis Other: unremarkable Skin General skin exam: no rashes or lesions noted Neuro General: patient oriented x3 Extrem General: Yes normal to inspection Psych Mental Status: mental status grossly normal Objective Labs and Meds 07/04/24 06:37 07/04/24 06:37 Progress Note: A&P Assessment and plan (1) Syncope and collapse: Status: Acute (2) PVC (premature ventricular contraction): Status: Acute (3) COVID-19 virus infection: Status: Acute Plan Baseline EKG shows sinus rhythm and PVCs. Corrected QT within range. On telemetry, occasional PVCs but no significant runs. Unremarkable troponin level. Cardiac BNP is within range. Probably orthostatic/vagal type syncope related to acute viral infection and high fevers. Awaiting echocardiogram. If this is unremarkable, then can follow-up as outpatient. Time Spent With Patient Time: Total time managing care of this patient today ____ minutes. Progress Note: Quality Stroke Does the patient have a stroke diagnosis?: No Procedures Date of Service Date of Service: 07/05/24
[2024-07-05 12:00] VITALS: BP 145/66; PULSE 80; RESP 18; TEMP 36.7; O2SAT 95
--- NOTE | 2024-07-05 14:12 | HO.PM.IMPN ---
Subjective Subjective Date of Service: 07/05/24 Review of Systems Follow up syncope no pain or discomfort Physical Exam Vital Signs: Vital Signs: Last Vital Signs Temp 98.0 F 07/05/24 12:00 Pulse 80 07/05/24 12:00 Resp 18 07/05/24 12:00 BP 145/66 H 07/05/24 12:00 Pulse Ox 95 07/05/24 12:00 O2 Del Method Room Air 07/05/24 12:00 BMI result Body Mass Index 28.2 Appearing in no acute distress lung sounds are clear to auscultation heart regular rate rhythm, clear S1, S2 positive bowel sounds, abdomen is soft, nontender neuro patient is alert x3, no focal deficits Objective Data Active Medications Acetaminophen (Acetaminophen 325 Mg Tablet) 650 mg PO Q6H PRN PRN Reason: Pain, Mild 1-3,fever,headache Aspirin (Aspirin Enteric Coated 81 Mg Tablet.Dr) 81 mg PO DAILY [facility] Last Admin: 07/05/24 09:45 Dose: 81 mg Documented By: ZINA Calcium Carbonate (Calcium Carbonate 750 Mg Tab.Chew) 750 mg PO Q4H PRN PRN Reason: Heartburn Heparin Sodium (Porcine) (Heparin Sodium,Porcine 5,000 Unit/Ml Vial) 5,000 unit SUBCUT Q12H [facility] Last Admin: 07/05/24 03:56 Dose: 5,000 unit Documented By: HELIO Lisinopril (Lisinopril 10 Mg Tablet) 10 mg PO DAILY [facility]; Protocol Last Admin: 07/05/24 09:45 Dose: 10 mg Documented By: ZINA Magnesium Hydroxide (Milk Of Magnesia 30 Ml Oral.Susp) 30 ml PO DAILY PRN PRN Reason: Constipation Melatonin (Melatonin 3 Mg Tablet) 6 mg PO BEDTIME PRN PRN Reason: Insomnia Sodium Chloride (0.9 % Sodium Chloride Flush 3 Ml Syringe) 3 ml IVFLUSH QSHIFT [facility] Last Admin: 07/05/24 09:51 Dose: Not Given Documented By: ZINA Non-Admin Reason: No Access Vitamin D (Cholecalciferol (Vitamin D3) 25 Mcg Tablet) 50 mcg PO DAILY [facility] Last Admin: 07/05/24 09:46 Dose: 50 mcg Documented By: ZINA Labs 07/04/24 06:37 07/04/24 06:37 Microbiology Microbiology Results: Microbiology 07/03/24 10:06 Blood Culture - Preliminary Blood - Venous No growth after 48 hours. 07/03/24 10:03 Blood Culture - Preliminary Blood - Venous No growth after 48 hours. Assessment and Plan (1) Essential hypertension: Status: Acute Plan [address] don observation due to an episode on syncope at urgent care clinic, found to have covid 19 Syncope unknown etiology, ? orthostasis reported feeling weak no hx of cardiac arrythmia, no hypoxia Multiple PVCs noted on EKG, Cardiology consultation>s/p IV fluids, echo pending new covid dx monitor on tele>no severe arrythmia on tele Covid 19 no hypoxia supportive care monitor resp status Hypertension continue lisinopril DVT prophylaxis with heparin full code Quality Stroke Does the patient have a stroke diagnosis?: No VTE Prior VTE?: No VTE Risk Level:: Medical - moderate - high VTE Device Contraindication: Treatment Not Indicated VTE Drug Contraindication: N/A - Med Ordered
--- NOTE | 2024-07-05 15:29 | MHC.CM.PN ---
Pt has not been medically cleared for DC, DCP is home, self care, CM to follow and assist with DC plan.
[2024-07-05 16:00] VITALS: BP 155/75; PULSE 54; RESP 19; TEMP 36.4; O2SAT 98
--- NOTE | 2024-07-05 16:13 | PM.DS ---
DS: Providers Provider Date of Service: 07/05/24 Date of admission: 07/03/24 15:01 Date of discharge: 07/05/24 Primary care physician: Isabella Traylor MD Consults: 07/03/24 15:18 Consult to Cardiology Routine Consulting Provider: [facility] Reason for consultation: multiple PVC, syncope DS: Diagnosis Discharge Diagnosis (1) Essential hypertension: Status: Acute DS: Summary Hospital Course Hospital Course: 79 year old man presenting to the ED after an episode of syncope at urgent care clinic. Patient reports being in his usual state of health recently and overnight developed fever and mild dry cough and decided to go to urgent clinic this morning. He reports as he was walking in he passed out. He denied any preceding symptoms, headache, visual changes, chest pain, shortness of breath, nausea, vomiting, diarrhea. When he woke up he saw EMS around him. He was brought to the emergency department, x-ray was negative for consolidation or effusion, labs all within acceptable limits, no fever, COVID positive with no hypoxia. Plan is to monitor patient overnight for syncope. 79-year-old man treated for syncope likely secondary to orthostasis and viral syndrome from COVID-19. He had denied any fever, chills, nausea, vomiting, diarrhea, chest pain. Initial EKG was negative for any ischemic changes, echocardiogram was within normal limits as per Cardiology. He was noticed to have occasional PVCs on telemetry, treated with IV fluids. Plan will be to follow up with Cardiology for Holter monitor outpatient. In terms of his COVID-19 he was never hypoxic and never required any oxygen. Hypertension. Patient may continue his lisinopril. Time Attestation Discharge Coordination Time (in mins): 35 Quality: Safe Use of Opioids Does Pt have an Active Cancer Diagnosis on the Problem List?: No Quality: Stroke Does the patient have a stroke diagnosis?: No Physical Exam Vital Signs: Vital Signs: Last Vital Signs Temp 98.0 F 07/05/24 12:00 Pulse 80 07/05/24 12:00 Resp 18 07/05/24 12:00 BP 145/66 H 07/05/24 12:00 Pulse Ox 95 07/05/24 12:00 O2 Del Method Room Air 07/05/24 12:00 BMI result Body Mass Index 28.2 Appearing in no acute distress head is normocephalic atraumatic eyes pupils are PERRLA sclera is anicteric mouth throat mucous membranes are intact and moist neck is supple no lymphadenopathy, no JVD noted lung sounds are clear to auscultation heart regular rate rhythm, clear S1, S2 positive bowel sounds, abdomen is soft, nontender neuro patient is alert x3, no focal deficits DS: Data Data Completed and Pending Labs on day of discharge: Preliminary micro results at discharge 07/03/24 10:06 Blood Culture - Preliminary Blood - Venous No growth after 48 hours. 07/03/24 10:03 Blood Culture - Preliminary Blood - Venous No growth after 48 hours. Discharge Plan Discharge Anticipated Discharge Date/Time: 07/05/24 16:05 Patient Disposition: Home, Self-Care Discharge Diagnosis: Syncope COVID-19 PVC Referrals: Isabella Traylor MD [Primary Care Provider] - 1 Week Discharge Medications: Continued lisinopril 10 mg tablet 10 mg PO DAILY Qty: 90 0RF aspirin [Adult Low Dose Aspirin] 81 mg tablet,delayed release (DR/EC) 81 mg PO DAILY cholecalciferol (vitamin D3) 50 mcg (2,000 unit) capsule 50 mcg PO DAILY omega-3 fatty acids 1,000 mg capsule 1,000 mg PO DAILY Discharge Orders: Discharge Order (Routine); Ordered 07/05/24 Ordered By: Rosangela Mclain Diet: Advance to usual diet Activity on Discharge: As tolerated Stand Alone Forms: Patient Portal Discharge page Print Language: Divehi Care Plan Goals: Follow up with Cardiology for Holter monitor placement Health Concerns: Syncope COVID-19 PVC Plan of Treatment: Follow-up with primary care provider as needed Take all medications as prescribed Assessment: See discharge summary
== END 2024-07-05 18:19 | disposition home or self-care (01) ==
LOC: HO.ED 12:42 → HO.EDOVER 15:02 → HO.IMC 15:28
PROVIDERS: Admitting Provider Nurse Practitioner Acute Care; Emergency Provider Emergency Medicine; PCP Internal Medicine; Visit Provider Nurse Practitioner Acute Care
DX: U07.1 COVID-19 (principal); R55 Syncope and collapse; I49.3 Ventricular premature depolarization; R05.9 Cough, unspecified; R50.9 Fever, unspecified; I10 Essential (primary) hypertension; M72.0 Palmar fascial fibromatosis [Dupuytren]; Z79.899 Other long term (current) drug therapy
CPT/HCPCS: 0241U; 36415; 70450; 71045; 72125; 80048; 80076; 81001; 83605; 83690; 83880; 84484; 85025; 87040; 93005; 93306; 96360; 96361; 96372; 99222; 99285; J1644; J7120; Q9957

== ENCOUNTER → 2024-07-03 09:49 | Outpatient (BNV) | payer MEDICARE, SELFPAY | PROVIDERS: Emergency Provider Emergency Medicine; PCP Internal Medicine; Visit Provider Radiology Vascular & Interventional Radiology | DX: R55 Syncope and collapse (principal) | CPT/HCPCS: 70450; 71045; 72125 ==

== ENCOUNTER 2024-07-03 15:01 | Outpatient (BNV) | payer MEDICARE, SELFPAY | END 2024-07-05 07:00 | PROVIDERS: Admitting Provider Nurse Practitioner Acute Care; Emergency Provider Emergency Medicine; PCP Internal Medicine; Visit Provider Internal Medicine | DX: I35.8 Other nonrheumatic aortic valve disorders (principal) | CPT/HCPCS: 93306 ==

== ENCOUNTER → 2024-07-03 15:01 | Outpatient (BNV) | payer MEDICARE, SELFPAY | PROVIDERS: Admitting Provider Nurse Practitioner Acute Care; Emergency Provider Emergency Medicine; PCP Internal Medicine; Visit Provider Internal Medicine Cardiovascular Disease | DX: R55 Syncope and collapse (principal); R94.31 Abnormal electrocardiogram [ECG] [EKG] | CPT/HCPCS: 93010; 99222 ==

== ENCOUNTER → 2024-07-03 15:01 | Outpatient (BNV) | payer MEDICARE, SELFPAY | PROVIDERS: Admitting Provider Nurse Practitioner Acute Care; Emergency Provider Emergency Medicine; PCP Internal Medicine; Visit Provider Nurse Practitioner Acute Care | DX: I10 Essential (primary) hypertension (principal) | CPT/HCPCS: 99222; 99232; 99239 ==

== ENCOUNTER → 2024-07-21 08:33 | Outpatient (REF) | payer MEDICARE, SELFPAY ==
--- NOTE | 2024-07-21 08:42 | CA_ITS ---
Transthoracic Echocardiogram Patient (Last, First, Middle): Eduardo Manjarrez T Gender: Male Date of : 1945 Age: 79 Procedure Date: 07/21/2024 Procedure Type: Transthoracic Echocardiogram Location: OP Height: 187.96 cm Weight: 99.79 kg BSA: 2.26 m2 Heart Rate: bpm BP: 150 / 78 mmHg Lung Gun Operator: TO Referring MD: Mitchell Shah MD Material Lister: Michael Ayala MD Symptoms: I49.3 - Ventricular premature depolarization Study Quality: Fair/Contrast ECG Rhythm: Sinus Conclusions: - Low normal LV ejection fraction 50-55% Findings Procedure Information Contrast agent, definity, is being given per protocol without apparent complications. Left Ventricle Normal left ventricular cavity size. There is normal left ventricular wall thickness. The left ventricular systolic function is low normal. The visually estimated ejection fraction is between 50-55%. Prior Study Comparison Changes noted compared to prior study dated: 07/05/2024. LV EF is at low end of normal and reduced compared to prior study Measurements 2D Linear Measurements IVSd: 1.08 0.6-0.9/0.6-1.0 cm LVIDd: 4.80 3.9-5.3/4.2-5.9 cm LVIDd Index: 2.12 2.4-3.2/2.2-3.1 cm/m2 LVIDs: 3.25 2.0-3.6 cm LVPWd: 0.85 0.7-1.1 cm LV Mass: 201.86 67-162/88-224 g LV Mass Index: 89.32 43-95/49-115 g/m2 LVOT Diam: 2.30 3.0+(-)1.3 cm 2D Systolic Function EF 4C: 47.30 >55% EF 2C: 54.60 >55% EF BiP: 51.30 >55% Mitral Valve MV Pk E: 0.60 MV PK A: 0.84 MV Decel Time: 226.00 E/A: 0.70 E'Lateral: 7.83 E'Medial: 6.09 E/E' Med: 9.80 E/E' Lat: 7.60 PHT: 66.00 MVA PHT: 3.33 Decel [place]: 2.63 LVOT LVOT Pk Torey: 0.99 LVOT Mn Torey: 0.62 LVOT VTI: 0.18 LVOT Pk Grad: 4.00 LVOT Mn Grad: 2.00 LVOT Diam: 2.30 LVOT Area: 4.15 Diastolic Function MV Pk E: 0.60 MV Pk A: 0.84 E/A: 0.70 E'Medial: 6.09 E/E' Med: 9.80 E' Laterial: 7.83 E/E' Lat: 7.60 Tricuspid Valve RA Press: 3.00 Updated in Other Vendor System with Status of Final Michael Ayala MD electronically signed on 07/22/2024 1:10:56 PM with status of Final
--- OUTSIDE RECORDS SUMMARY | 2024-07-21 08:45 | XMS_ITS | Continuity of Care Document ---
Author Name [facility] Organization [facility] Care Team Providers Care Doll Wig Maker Name Role Phone [facility] Unavailable Unavailable Problems Combined list of problems from Department of Defense and Veterans Affairs facilities. It does not include entries that were removed or entered in error. Problem Status Onset Date Problem Type Date of Resolution Comments Source Benign essential hypertension Active [facility] [place] [facility] Dupuytren's disease of palm Active Condition [facility] [place] [facility] Exposure to potentially hazardous substance Active Condition Aug 20, 2023 Entered By: SONYA LOFTON Comment: Original TAMIKO Screen completed 06/10/22 [facility] [place] [facility] Obesity Active Condition [facility] [place] [facility] Raised PSA Active Condition Jun 13 Entered By: CA OROSCO ED Comment: status post prostate biopsy in the past came out negative [facility] [place] [facility] Diagnosis: ICD-10-CM Z77.29 Contact with and exposure to other hazardous substances Active Diagnosis [facility] [place] [facility] Diagnosis: ICD-10-CM Z23 Encounter for immunization Active Diagnosis [facility] DALEY [place] [facility] [place] Diagnosis: ICD-10-CM I10 Essential (primary) hypertension Active Diagnosis [facility] [place] [facility] [place] Medications Combined list of outpatient medications from Department of Defense and Veterans Affairs facilities.Medications provided include 1) outpatient medications from the last 15 months, and 2) patient-reported medications. Medication Details Route Status Patient Instructions Prescription Expires Prescription Number Last Dispense Date Ordering Provider Order Date Order Qty Source ASPIRIN 81MG TAB,EC TAKE ONE TABLET BY MOUTH EVERY DAY ORAL ACTIVE AWILDA OROSCO JAWGWENDOLYN 2015 [facility] CHOLECALCIF WILMER 50MCG (2,000UNIT) TAB TAKE ONE TABLET BY MOUTH EVERY DAY ORAL ACTIVE AWILDA OROSCO JAWED 2015 [facility] FISH OIL 1000MG (500MG DHA/EPA) CAP,ORAL TAKE 1 CAPSULE BY MOUTH EVERY DAY ORAL ACTIVE AWILDA OROSCO JAWED 2015 [facility] LISINOPRIL 10MG TAB TAKE ONE TABLET BY MOUTH EVERY DAY ORAL ACTIVE AWILDA OROSCO JAWED 2015 [facility] Immunizations Combined list of available immunizations from the Department of Defense and Veterans Affairs facilities. Immunization Series Date Given Administered By Site Reaction Lot Number CVX Code Drug Production Engineer Status Comments Source INFLUENZA, HIGH-DOSE, TRIVALENT, PF 2023 SANDRO ESTRELLA LEFT DELTO ID [id number] 135 complet ed [facility] INFLUENZA, UNSPECIFIED FORMULATION 2022 88 complet ed [facility] INFLUENZA, UNSPECIFIED FORMULATION 2021 88 complet ed [facility] COVID-19 (MODERNA), MRNA, LNP-S, PF, 100 MCG OR 50 MCG DOSE 3 2020 207 complet ed [facility] INFLUENZA, UNSPECIFIED FORMULATION 2020 88 complet ed [facility] COVID-19 (MODERNA), MRNA, LNP-S, PF, 100 MCG/0.5 ML DOSE 2 2020 207 complet ed MOD; [id number]; 1 [facility] COVID-19 (MODERNA), MRNA, LNP-S, PF, 100 MCG/0.5 ML DOSE 1 2020 207 complet ed MOD; [id number]; 1 [facility] ZOSTER RECOMBINANT 2 2019 187 complet ed [facility] ZOSTER RECOMBINANT 1 2018 187 complet ed [facility] INFLUENZA, SEASONAL, INJECTABLE 2018 141 complet ed [facility] PNEUMOCOCCAL POLYSACCHARID E PPV23 2017 33 complet ed [facility] INFLUENZA, SEASONAL, INJECTABLE 2017 141 complet ed [facility] INFLUENZA, SEASONAL, INJECTABLE 2016 141 complet ed Site: Right Deltoid [facility] FLU,3 YRS (HISTORICAL) 2015 88 complet ed had at outside clinic [facility] PNEUMOCOCCAL CONJUGATE PCV 13 2014 133 complet ed yes [facility] TD(ADULT) UNSPECIFIED FORMULATION 2013 139 complet ed [facility] ZOSTER (HISTORICAL) 2006 121 complet ed [facility] Results Combined list of recent chemistry, hematology and other laboratory results from Department of Defense and Veterans Affairs, ranging from 15 months to all on record, depending upon the facility. Order Name Results Value Reference Range Date Interpretation Specimen Comments Source BASIC METABOLIC PANEL (non-fast ing) UREA NITROGEN [MASS/VOLUM E] IN SERUM OR PLASMA 16 mg/dL 7 - 25 06/01 Specimen Type: SERUM No comment entered. Ordering Provider: WENDY RODRIGUEZ Report Released Date/Time: May 26, 2024 03:48 PM Reporting Lab: [facility] [place] [facility] [place] [address] [address] Performing Lab: [facility] [address] [address] [facility] [facility] BASIC METABOLIC PANEL (non-fast ing) GLUCOSE [MASS/VOLUM E] IN SERUM OR PLASMA 92 mg/dL 65 - 100 06/01 Specimen Type: SERUM No comment entered. Ordering Provider: WENDY RODRIGUEZ Report Released Date/Time: May 26, 2024 03:48 PM Reporting Lab: [facility] [place] [facility] [address] [address] Performing Lab: [facility] [address] [address] [facility] BASIC METABOLIC PANEL (non-fast ing) SODIUM [MOLES/VOLU ME] IN SERUM OR PLASMA 139 mmol/L 135 - 145 06/01 Specimen Type: SERUM No comment entered. Ordering Provider: WENDY RODRIGUEZ Report Released Date/Time: May 26, 2024 03:48 PM Reporting Lab: [facility] [address] [address] Performing Lab: [facility] [address] [address] [facility] BASIC METABOLIC PANEL (non-fast ing) POTASSIUM [MOLES/VOLU ME] IN SERUM OR PLASMA 4.5 mmol/L 3.5 - 5.0 06/01 Specimen Type: SERUM No comment entered. Ordering Provider: WENDY RODRIGUEZ Report Released Date/Time: May 26, 2024 03:48 PM Reporting Lab: [address] [address] Performing Lab: [facility] [address] [address] [facility] BASIC METABOLIC PANEL (non-fast ing) CHLORIDE [MOLES/VOLU ME] IN SERUM OR PLASMA 103 mmol/L 100 - 110 06/01 Specimen Type: SERUM No comment entered. Ordering Provider: WENDY RODRIGUEZ Report Released Date/Time: May 26, 2024 03:48 PM Reporting Lab: [facility] [address] [address] Performing Lab: [facility] [address] [address] [facility] BASIC METABOLIC PANEL (non-fast ing) CARBON DIOXIDE, TOTAL [MOLES/VOLU ME] IN SERUM OR PLASMA 25 meq/L 20 - 30 06/01 Specimen Type: SERUM No comment entered. Ordering Provider: WENDY RODRIGUEZ Report Released Date/Time: May 26, 2024 03:48 PM Reporting Lab: [address] [address] Performing Lab: [facility] [address] [address] [facility] BASIC METABOLIC PANEL (non-fast ing) CREATININE [MASS/VOLUM E] IN SERUM OR PLASMA 1.22 mg/dL 0.50 - 1.40 06/01 Specimen Type: SERUM No comment entered. Ordering Provider: WENDY RODRIGUEZ Report Released Date/Time: May 26, 2024 03:48 PM Reporting Lab: [facility] [address] [address] Performing Lab: [address] [address] [facility] BASIC METABOLIC PANEL (non-fast ing) GLOMERULAR FILTRATION RATE/1.73 SQ M.PREDICTED [VOLUME RATE/AREA] IN SERUM, PLASMA OR BLOOD BY CREATININE- BASED FORMULA (CKD-EPI 2020) 61 mL/min 60 06/01 Specimen Type: SERUM No comment entered. Ordering Provider: WENDY RODRIGUEZ Report Released Date/Time: May 26, 2024 03:48 PM Reporting Lab: [address] [address] Performing Lab: [address] [address] [facility] LIPID PANEL, NON FASTING CHOLESTEROL [MASS/VOLUM E] IN SERUM OR PLASMA 174 mg/dL 06/01 Specimen Type: SERUM No comment entered. Ordering Provider: WENDY RODRIGUEZ Report Released Date/Time: May 26, 2024 03:48 PM Reporting Lab: [address] [address] Performing Lab: [address] [address] [facility] LIPID PANEL, NON FASTING TRIGLYCERID E [MASS/VOLUM E] IN SERUM OR PLASMA 156 mg/dL 0 - 150 06/01 H Specimen Type: SERUM No comment entered. Ordering Provider: WENDY RODRIGUEZ Report Released Date/Time: May 26, 2024 03:48 PM Reporting Lab: [facility] [place] [facility] [address] [address] Performing Lab: [facility] [place] [facility] [address] [address] [facility] LIPID PANEL, NON FASTING CHOLESTEROL IN LDL [MASS/VOLUM E] IN SERUM OR PLASMA BY CALCULATION 101 mg/dL 0 - 129 06/01 Specimen Type: SERUM No comment entered. Ordering Provider: WENDY RODRIGUEZ Report Released Date/Time: May 26, 2024 03:48 PM Reporting Lab: [facility] [place] [facility] [address] [address] Performing Lab: [facility] [place] [address] [address] [facility] LIPID PANEL, NON FASTING CHOLESTEROL .TOTAL/CHOL ESTEROL IN HDL [MASS RATIO] IN SERUM OR PLASMA 4.1 06/01 Specimen Type: SERUM No comment entered. Ordering Provider: WENDY RODRIGUEZ Report Released Date/Time: May 26, 2024 03:48 PM Reporting Lab: [facility] [place] [facility] [address] [address] Performing Lab: [facility] [place] [address] [address] [facility] LIPID PANEL, NON FASTING CHOLESTEROL IN HDL [MASS/VOLUM E] IN SERUM OR PLASMA 42 mg/dL 40 - 60 06/01 Specimen Type: SERUM No comment entered. Ordering Provider: WENDY RODRIGUEZ Report Released Date/Time: May 26, 2024 03:48 PM Reporting Lab: [facility] [place] [facility] [address] [address] Performing Lab: [facility] [place] [address] [address] [facility] CBC AND DIFF (AUTO) LEUKOCYTES [#/VOLUME] IN BLOOD BY AUTOMATED COUNT 5.46 10*3/u L 4.50 - 11.00 05/30 Specimen Type: BLOOD No comment entered. Ordering Provider: KERI OROSCO Report Released Date/Time: May 23, 2023 03:18 PM Reporting Lab: [facility] [place] [facility] [address] [address] Performing Lab: [facility] [place] [facility] [address] [address] [facility] [facility] CBC AND DIFF (AUTO) ERYTHROCYTE S [#/VOLUME] IN BLOOD BY AUTOMATED COUNT 4.48 10*6/u L 4.23 - 5.66 05/30 Specimen Type: BLOOD No comment entered. Ordering Provider: KERI OROSCO Report Released Date/Time: May 23, 2023 03:18 PM Reporting Lab: [facility] [place] [address] [address] Performing Lab: [facility] [place] [facility] [address] [address] [facility] [place] [facility] CBC AND DIFF (AUTO) HEMOGLOBIN [MASS/VOLUM E] IN BLOOD 14.1 g/dL 12.8 - 17 05/30 Specimen Type: BLOOD No comment entered. Ordering Provider: KERI OROSCO Report Released Date/Time: May 23, 2023 03:18 PM Reporting Lab: [facility] [place] [address] [address] Performing Lab: [facility] [place] [facility] [address] [address] [facility] [place] [facility] CBC AND DIFF (AUTO) HEMATOCRIT [VOLUME FRACTION] OF BLOOD BY AUTOMATED COUNT 41.9 39.2 - 50.4 05/30 Specimen Type: BLOOD No comment entered. Ordering Provider: KERI OROSCO Report Released Date/Time: May 23, 2023 03:18 PM Reporting Lab: [facility] [place] [facility] [address] [address] Performing Lab: [facility] [place] [address] [address] [facility] CBC AND DIFF (AUTO) MCV [ENTITIC VOLUME] BY AUTOMATED COUNT 93.5 fL 82 - 99 05/30 Specimen Type: BLOOD No comment entered. Ordering Provider: KERI OROSCO Report Released Date/Time: May 23, 2023 03:18 PM Reporting Lab: [facility] [place] [facility] [address] [address] Performing Lab: [facility] [place] [facility] [address] [address] [facility] CBC AND DIFF (AUTO) MCHC [MASS/VOLUM E] BY AUTOMATED COUNT 33.7 g/dL 30.8 - 35.1 05/30 Specimen Type: BLOOD No comment entered. Ordering Provider: KERI OROSCO Report Released Date/Time: May 23, 2023 03:18 PM Reporting Lab: [facility] [place] [facility] [address] [address] Performing Lab: [facility] [place] [facility] [address] [address] [facility] CBC AND DIFF (AUTO) PLATELETS [#/VOLUME] IN BLOOD BY AUTOMATED COUNT 309 10*3/u L 140 - 360 05/30 Specimen Type: BLOOD No comment entered. Ordering Provider: KERI OROSCO Report Released Date/Time: May 23, 2023 03:18 PM Reporting Lab: [facility] [place] [facility] [address] [address] Performing Lab: [facility] [place] [facility] [address] [address] [facility] CBC AND DIFF (AUTO) ERYTHROCYTE DISTRIBUTIO N WIDTH [RATIO] BY AUTOMATED COUNT 12.5 12.0 - 16.0 05/30 Specimen Type: BLOOD No comment entered. Ordering Provider: KERI OROSCO Report Released Date/Time: May 23, 2023 03:18 PM Reporting Lab: [facility] [place] [facility] [address] [address] Performing Lab: [facility] [place] [facility] [address] [address] [facility] CBC AND DIFF (AUTO) MONOCYTES [#/VOLUME] IN BLOOD BY AUTOMATED COUNT 0.55 10*3/u L 0.30 - 1.10 05/30 Specimen Type: BLOOD No comment entered. Ordering Provider: KERI OROSCO Report Released Date/Time: May 23, 2023 03:18 PM Reporting Lab: [facility] [place] [facility] [address] [address] Performing Lab: [facility] [place] [facility] [address] [address] [facility] CBC AND DIFF (AUTO) MCH [ENTITIC MASS] BY AUTOMATED COUNT 31.5 pg 26.2 - 32.6 05/30 Specimen Type: BLOOD No comment entered. Ordering Provider: KERI OROSCO Report Released Date/Time: May 23, 2023 03:18 PM Reporting Lab: [facility] [place] [facility] [address] [address] Performing Lab: [facility] [place] [facility] [address] [address] [facility] [place] [facility] CBC AND DIFF (AUTO) NEUTROPHILS /100 LEUKOCYTES IN BLOOD BY AUTOMATED COUNT 39.4 43.7 - 75.8 05/30 L Specimen Type: BLOOD No comment entered. Ordering Provider: KERI OROSCO Report Released Date/Time: May 23, 2023 03:18 PM Reporting Lab: [facility] [place] [facility] [address] [address] Performing Lab: [facility] [place] [address] [address] [facility] [place] [facility] CBC AND DIFF (AUTO) LYMPHOCYTES /100 LEUKOCYTES IN BLOOD BY AUTOMATED COUNT 44.5 14.0 - 42.3 05/30 H Specimen Type: BLOOD No comment entered. Ordering Provider: KERI OROSCO Report Released Date/Time: May 23, 2023 03:18 PM Reporting Lab: [facility] [place] [facility] [address] [address] Performing Lab: [facility] [place] [facility] [address] [address] [facility] CBC AND DIFF (AUTO) MONOCYTES/1 00 LEUKOCYTES IN BLOOD BY AUTOMATED COUNT 10.1 5.1 - 13.7 05/30 Specimen Type: BLOOD No comment entered. Ordering Provider: KERI OROSCO Gertrude Report Released Date/Time: May 23, 2023 03:18 PM Reporting Lab: [facility] [place] [facility] [address] [address] Performing Lab: [facility] [place] [facility] [address] [address] [facility] CBC AND DIFF (AUTO) EOSINOPHILS /100 LEUKOCYTES IN BLOOD BY AUTOMATED COUNT 4.2 0.4 - 6.8 05/30 Specimen Type: BLOOD No comment entered. Ordering Provider: KERI OROSCO Gertrude Report Released Date/Time: May 23, 2023 03:18 PM Reporting Lab: [facility] [place] [facility] [address] [address] Performing Lab: [facility] [place] [facility] [address] [address] [facility] CBC AND DIFF (AUTO) BASOPHILS/1 00 LEUKOCYTES IN BLOOD BY AUTOMATED COUNT 1.6 0.1 - 2.0 05/30 Specimen Type: BLOOD No comment entered. Ordering Provider: KERI OROSCO Gertrude Report Released Date/Time: May 23, 2023 03:18 PM Reporting Lab: [facility] [place] [facility] [address] [address] Performing Lab: [facility] [place] [facility] [address] [address] [facility] CBC AND DIFF (AUTO) NEUTROPHILS [#/VOLUME] IN BLOOD BY AUTOMATED COUNT 2.15 10*3/u L 2.20 - 7.60 05/30 L Specimen Type: BLOOD No comment entered. Ordering Provider: KERI OROSCO Report Released Date/Time: May 23, 2023 03:18 PM Reporting Lab: [facility] [place] [facility] [address] [address] Performing Lab: [facility] [place] [address] [address] [facility] CBC AND DIFF (AUTO) LYMPHOCYTES [#/VOLUME] IN BLOOD BY AUTOMATED COUNT 2.43 10*3/u L 1.00 - 3.20 05/30 Specimen Type: BLOOD No comment entered. Ordering Provider: KERI OROSCO Report Released Date/Time: May 23, 2023 03:18 PM Reporting Lab: [facility] [place] [address] [address] Performing Lab: [facility] [place] [address] [address] [facility] [place] [facility] CBC AND DIFF (AUTO) EOSINOPHILS [#/VOLUME] IN BLOOD BY AUTOMATED COUNT 0.23 10*3/u L 0.03 - 0.44 05/30 Specimen Type: BLOOD No comment entered. Ordering Provider: KERI OROSCO Report Released Date/Time: May 23, 2023 03:18 PM Reporting Lab: [facility] [place] [address] [address] Performing Lab[facility] [place] [address] [address] [facility] CBC AND DIFF (AUTO) BASOPHILS [#/VOLUME] IN BLOOD BY AUTOMATED COUNT 0.09 10*3/u L 0.01 - 0.13 05/30 Specimen Type: BLOOD No comment entered. Ordering Provider: KERI OROSCO Report Released Date/Time: May 23, 2023 03:18 PM Reporting Lab: [facility] [place] [address] [address] Performing Lab: [facility] [place] [facility] [address] [address] [facility] [facility] CBC AND DIFF (AUTO) IMMATURE GRANULOCYTE S/100 LEUKOCYTES IN BLOOD BY AUTOMATED COUNT 0.2 0.0 - 0.7 05/30 Specimen Type: BLOOD No comment entered. Ordering Provider: KERI OROSCO Report Released Date/Time: May 23, 2023 03:18 PM Reporting Lab: [facility] [place] [facility] [address] [address] Performing Lab: [facility] [place] [facility] [address] [address] [facility] [facility] CBC AND DIFF (AUTO) IMMATURE GRANULOCYTE S [#/VOLUME] IN BLOOD 0.01 10*3/u L 0.00 - 0.06 05/30 Specimen Type: BLOOD No comment entered. Ordering Provider: KERI OROSCO Report Released Date/Time: May 23, 2023 03:18 PM Reporting Lab: [facility] [place] [facility] [address] [address] Performing Lab: [facility] [place] [facility] [address] [address] [facility] LIPID PANEL FASTING CHOLESTEROL [MASS/VOLUM E] IN SERUM OR PLASMA 158 mg/dL 05/30 Specimen Type: SERUM No comment entered. Ordering Provider: KERI OROSCO Report Released Date/Time: May 23, 2023 03:18 PM Reporting Lab: [facility] [place] [facility] [address] [address] Performing Lab: [facility] [place] [facility] [address] [address] [facility] LIPID PANEL FASTING TRIGLYCERID E [MASS/VOLUM E] IN SERUM OR PLASMA 100 mg/dL 0 - 150 05/30 Specimen Type: SERUM No comment entered. Ordering Provider: KERI OROSCO Report Released Date/Time: May 23, 2023 03:18 PM Reporting Lab: [facility] [place] [facility] [address] [address] Performing Lab: [facility] [place] [facility] [address] [address] [facility] [facility] LIPID PANEL FASTING CHOLESTEROL IN LDL [MASS/VOLUM E] IN SERUM OR PLASMA BY CALCULATION 96 mg/dL 0 - 129 05/30 Specimen Type: SERUM No comment entered. Ordering Provider: KERI OROSCO Report Released Date/Time: May 23, 2023 03:18 PM Reporting Lab: [facility] [place] [facility] [place] [address] [phone] Performing Lab: [facility] [place] [facility] [place] [address] [phone] [facility] [place] LIPID PANEL FASTING CHOLESTEROL .TOTAL/CHOL ESTEROL IN HDL [MASS RATIO] IN SERUM OR PLASMA 3.8 05/30 Specimen Type: SERUM No comment entered. Ordering Provider: KERI OROSCO Report Released Date/Time: May 23, 2023 03:18 PM Reporting Lab: [facility] [place] [facility] [place] [address] [phone] Performing Lab: [facility] [place] [facility] [place] [address] [phone] [facility] LIPID PANEL FASTING CHOLESTEROL IN HDL [MASS/VOLUM E] IN SERUM OR PLASMA 42 mg/dL 40 - 60 05/30 Specimen Type: SERUM No comment entered. Ordering Provider: KERI OROSCO Report Released Date/Time: May 23, 2023 03:18 PM Reporting Lab: [facility] [place] [facility] [place] [address] [phone] Performing Lab: [facility] [place] [facility] [place] [address] [phone] [facility] BASIC METABOLIC PANEL (fasting) UREA NITROGEN [MASS/VOLUM E] IN SERUM OR PLASMA 14 mg/dL 7 - 25 05/30 Specimen Type: SERUM No comment entered. Ordering Provider: AHMED,MOHAM MED JAWED Report Released Date/Time: May 23, 2023 03:18 PM Reporting Lab: [facility] [place] [facility] [place] [place] [address] [address] Performing Lab: [facility] [place] [facility] [place] [address] [address] [facility] [facility] [place] BASIC METABOLIC PANEL (fasting) GLUCOSE [MASS/VOLUM E] IN SERUM OR PLASMA 96 mg/dL 65 - 100 05/30 Specimen Type: SERUM No comment entered. Ordering Provider: KERI OROSCO Gertrude Report Released Date/Time: May 23, 2023 03:18 PM Reporting Lab: [facility] [place] [facility] [place] [address] [address] Performing Lab: [facility] [place] [facility] [place] [address] [address] [facility] BASIC METABOLIC PANEL (fasting) SODIUM [MOLES/VOLU ME] IN SERUM OR PLASMA 138 mmol/L 135 - 145 05/30 Specimen Type: SERUM No comment entered. Ordering Provider: KERI [email or web address] Report Released Date/Time: May 23, 2023 03:18 PM Reporting Lab: [facility] [place] [facility] [place] [address] [address] Performing Lab: [facility] [place] [facility] [place] [address] [address] [facility] [place] [facility] [place] BASIC METABOLIC PANEL (fasting) POTASSIUM [MOLES/VOLU ME] IN SERUM OR PLASMA 4.3 mmol/L 3.5 - 5.0 05/30 Specimen Type: SERUM No comment entered. Ordering Provider: KERI OROSCO Gertrude Report Released Date/Time: May 23, 2023 03:18 PM Reporting Lab: [facility] [place] [facility] [place] [address] [address] Performing Lab: [facility] [place] [facility] [place] [address] [address] [facility] [place] [facility] [place] BASIC METABOLIC PANEL (fasting) CHLORIDE [MOLES/VOLU ME] IN SERUM OR PLASMA 104 mmol/L 100 - 110 12/01 /2023 Specimen Type: SERUM No comment entered. Ordering Provider: KERI OROSCO Report Released Date/Time: May 23, 2023 03:18 PM Reporting Lab: [facility] [place] [address] [address] Performing Lab: [facility] [address] [address] [facility] BASIC METABOLIC PANEL (fasting) CARBON DIOXIDE, TOTAL [MOLES/VOLU ME] IN SERUM OR PLASMA 26 meq/L 20 - 30 05/30 Specimen Type: SERUM No comment entered. Ordering Provider: KERI OROSCO Report Released Date/Time: May 23, 2023 03:18 PM Reporting Lab: [facility] [address] [address] Performing Lab: [facility] [address] [facility] BASIC METABOLIC PANEL (fasting) CREATININE [MASS/VOLUM E] IN SERUM OR PLASMA 1.13 mg/dL 0.50 - 1.40 05/30 Specimen Type: SERUM No comment entered. Ordering Provider: KERI OROSCO Report Released Date/Time: May 23, 2023 03:18 PM Reporting Lab: [facility] [address] [address] Performing Lab: [facility] [address] [facility] BASIC METABOLIC PANEL (fasting) GLOMERULAR FILTRATION RATE/1.73 SQ M.PREDICTED [VOLUME RATE/AREA] IN SERUM, PLASMA OR BLOOD BY CREATININE- BASED FORMULA (CKD-EPI 2020) 67 mL/min 60 05/30 Specimen Type: SERUM No comment entered. Ordering Provider: KERI OROSCO Report Released Date/Time: May 23, 2023 03:18 PM Reporting Lab: [facility] [address] Performing Lab: [facility] [place] [facility] [place] [address] [address] [facility] [place] [facility] [place] LIVER FUNCTION PROTEIN [MASS/VOLUM E] IN SERUM OR PLASMA 7.4 g/dL 6.0 - 8.3 05/30 Specimen Type: SERUM No comment entered. Ordering Provider: KERI OROSCO Report Released Date/Time: May 23, 2023 03:18 PM Reporting Lab: [facility] [place] [facility] [address] [address] Performing Lab: [facility] [place] [facility] [place] [address] [address] [facility] [place] [facility] [place] LIVER FUNCTION ALBUMIN [MASS/VOLUM E] IN SERUM OR PLASMA 3.8 g/dL 3.5 - 5.0 05/30 Specimen Type: SERUM No comment entered. Ordering Provider: KERI OROSCO Report Released Date/Time: May 23, 2023 03:18 PM Reporting Lab: [facility] [place] [facility] [address] [address] Performing Lab: [facility] [place] [facility] [place] [address] [address] [facility] [place] [facility] [place] LIVER FUNCTION ALKALINE PHOSPHATASE [ENZYMATIC ACTIVITY/VO LUME] IN SERUM OR PLASMA 59 U/L 40 - 150 05/30 Specimen Type: SERUM No comment entered. Ordering Provider: KERI OROSCO Report Released Date/Time: May 23, 2023 03:18 PM Reporting Lab: [facility] [place] [facility] [address] [address] Performing Lab: [facility] [place] [facility] [place] [address] [address] [facility] [place] [facility] [place] LIVER FUNCTION ASPARTATE AMINOTRANSF ERASE [ENZYMATIC ACTIVITY/VO LUME] IN SERUM OR PLASMA 22 U/L 5 - 34 05/30 Specimen Type: SERUM No comment entered. Ordering Provider: KERI OROSCO Report Released Date/Time: May 23, 2023 03:18 PM Reporting Lab: [facility] [place] [facility] [place] [address] [address] Performing Lab: [facility] [place] [facility] [address] [address] [facility] [place] [facility] [place] LIVER FUNCTION ALANINE AMINOTRANSF ERASE [ENZYMATIC ACTIVITY/VO LUME] IN SERUM OR PLASMA 19 U/L 05/30 Specimen Type: SERUM No comment entered. Ordering Provider: KERI OROSCO Report Released Date/Time: May 23, 2023 03:18 PM Reporting Lab: [facility] [place] [facility] [address] [address] Performing Lab: [facility] [place] [facility] [place] [address] [address] [facility] [place] [facility] [place] LIVER FUNCTION BILIRUBIN.T OTAL [MASS/VOLUM E] IN SERUM OR PLASMA 0.6 mg/dL 0.2 - 1.2 05/30 Specimen Type: SERUM No comment entered. Ordering Provider: KERI OROSCO Report Released Date/Time: May 23, 2023 03:18 PM Reporting Lab: [facility] [place] [facility] [place] [address] [address] Performing Lab: [facility] [place] [facility] [place] [address] [address] [facility] [place] [facility] [place] Vital Signs Combined list of inpatient and outpatient Vital Signs from Department of Defense and Veterans Affairs, ranging from 12 months to all on record, depending upon the facility. Vital Sign Value Date Comments Source SYSTOLIC BLOOD PRESSURE 147 06/08/20 24 08:20:04 [facility] [place] [facility] [place] [place] DIASTOLIC BLOOD PRESSURE 76 024 08:20:04 [facility] [place] [facility] [place] PULSE OXIMETRY 99 06/08/2024 08:20:04 [facility] [place] WEIGHT 226 06/08/2024 08:20:04 [facility] [place] [facility] BMI 31kg/m2 06/08/2024 08:20:04 [facility] [place] [facility] PAIN 0 06/08/2024 08:20:04 [facility] [place] TEMPERATURE 97.6 06/08/2024 08:20:04 [facility] [place] PULSE 68 06/08/2024 08:20:04 [facility] [place] RESPIRATION 16 06/08/2024 08:20:04 [facility] [place] [facility] Encounters Combined list of: 1) Encounters from Department of Veterans Affairs facilities going back up to thelast 18 months. 2) Encounters from the Department of [employer] facilities going back up to 280 months. Location Location Details Encounter Type Encounter Number Reason For Visit Attending Provider ADM Date DC Date Status Disposition Source [facility] En[facility] [id number] 05/08 [facility] [id number] 05/29 [facility] Encounter [id number] 06/10 [facility] OFFICE O/P EST LOW 20-29 MIN [id number] Diagnos is: ICD-10- CM I10 Essenti al (primar y) hyperte nsion<b r/> BRYCE OROSCO MMED JAWED 06/10 [facility] En[facility] [id number] 07/19 [facility] Encounter [id number] 08/08 [facility] OFF/OP EST MAY X REQ PHY/QHP [id number] Diagnos is: ICD-10- CM Z23 Encount er for immuniz ation<b r/> RA KATIE LOFTON 03/12 [facility] [place] [facility] [place] [place] [facility] Outpatient [facility]counter [id number] 05/28 [facility] [place] [facility] [place] [facility] [place] [facility] [place] [place] Outpatient Encounter [id number] 1[facility]06/08 [facility] [place] [facility] [place] [facility] [place] [facility] [place] OFFICE O/P EST MOD 30 MIN [id number] 1. Diagnos is: ICD-10- CM Z77.29 Contact with and exposur e to other hazardo us substan eitan<br/ > MICHAELTI NA 06/08 [facility] [place] [facility] [place] Social History Combined list of available smoking, tobacco, and other social history from Department of Defense and Veterans Affairs facilities. Social History Type Response Date Comment Sourc e Tobacco smoking status NHIS VA-TOBACCO NEVER USED CIGARETTES 06/08/2024 [facility] [place] History of tobacco use VA-TOBACCO NEVER USED OTHER TYPE 06/08/2024 [facility] History of tobacco use VA-TOBACCO NEVER USED 06/10/2023 [facility] [place] History of tobacco use VA-TOBACCO NEVER USED 06/10/2022 [facility] [place] [facility] History of tobacco use VA-TOBACCO FORMER USER 06/11/2021 [facility] [place] History of tobacco use VA-TOBACCO FORMER USER 06/02/2020 [facility] [place] History of tobacco use VA-TOBACCO NEVER USED 06/04/2018 [facility] [place] History of tobacco use QUIT TOBACCO USE > 7 YEARS AGO 05/14/2017 [facility] History of tobacco use QUIT TOBACCO USE 1-7 YEARS AGO 06/13/2016 [facility] Advance Directives List of completed, amended, or rescinded Advance Directives on record at Department of [facility] facilities. An actual copy of the Directive is not included. Date Advance Directive Provider Source 06/16/2017 ADVANCE DIRECTIVE SUNNY TRUONG [facility]
--- OUTSIDE RECORDS SUMMARY | 2024-07-21 08:46 | XMS_ITS | Encounter Summary ---
Author Name [facility] [place] [facility] [place] Organization [facility] [place] Address [address] [place] [id number] Care Team Providers Care Maintenance Repairer Name Role Phone RACHELLE RODRIGUEZ Primary Care Provider Unavailabl e Insurance Providers: All historical and current Section Date Range: From patient's date of to the date document was created. This section includes the names of all active insurance providers for the patient. Insurance Provider Type of Coverage Plan Name Start of Policy Coverage End of Policy Coverage Group Number Member ID Insurance Provider's Telephone Number Policy Chopra's Name Patient's Relationship to Policy Chopra [place] SUPPLE[place] NICHOL MEDEX BRONZ E October 28, 2013 [id number] PATIENT [place]LE[place] NICHOL MEDEX BRONZ E October 28, 2013 [id number] [phone] PATIENT MEDICARE (WN) MEDICARE (M) PART A Apr 30, 2012 PART A [id number] [facility] [address] PATIENT MEDICARE (WNR) MEDICARE (M) PART B Apr 30, 2012 PART B [id number] [facility] REESE MANJARREZ DARIELA PATIENT Selected Encounter This section includes the information on record at [place] for the Encounter. Date/Time Encounter Type Encounter Description Reason Provider Source Jun 08, 2024 08:30 AM OFFICE O/P EST MOD 30 MIN PRIMARY CARE/MEDICINE ICD-10-CM Z77.29 Contact with and exposure to other hazardous substances RACHELLE RODRIGUEZ IHJaron Encounter Template Text not used by [place] Assessments - Encounter Diagnoses This section includes the primary and secondary diagnoses documented for the Encounter. Date/Time Primary/Secondary Diagnosis Diagnosis Name Provider Source Jun 25, 2024 10:18 AM PRIMARY Contact with and exposure to other hazardous substances RACHELLE RODRIGUEZ [facility] Jun 25, 2024 10:18 AM SECONDARY Elevated prostate specific antigen [PSA] [facility] Jun 25, 2024 10:18 AM SECONDARY Essential (primary) hypertension RACHELLE ROD[facility]IGUEZ [facility] [place] [facility] Jun 25, 2024 10:18 AM SECONDARY Obesity, unspecified RACHELLE RODRIGUEZ [facility] Jun 25, 2024 10:18 AM SECONDARY Palmar fascial fibromatosis [Dupuytren] RACHELLE [facility]OD[facility]IGUEZ [facility] Lab Results: +/- 30 days of the encounter This section includes the Chemistry and Hematology Lab Results on record with [place] for the patient. Radiology Reports and Pathology Reports are provided separately, in subsequent sections. Lab Results This section contains the Chemistry/Hematology Results that were resulted 30 days before or 30 daysafter the date of the Encounter. Date/Time Source Result Type Result - Unit Interpretation Reference Range Comment Jun 01, 2024 08:08 AM [facility] BASIC METABOLIC PANEL (non-fasting) Specimen Type: SERUM No comment entered. Ordering Provider: RACHELLE RODRIGUEZ Report Released Date/Time: May 26, 2024 03:48 PM Reporting Lab: [address] [id number] Performing Lab: [address] [address] UREA NITROGEN 16 mg/dL 7-25 GLUCOSE 92 mg/dL 65-100 SODIUM 139 mmol/L 135-145 POTASSIUM 4.5 mmol/L 3.5-5.0 CHLORIDE 103 mmol/L 100-110 CO2 25 meq/L 20-30 CREATININE, Serum 1.22 mg/dL 0.50-1.40 eGFR(CKD-EPI 2020) 61 mL/min >60 Jun 01, 2024 08:08 AM [facility] LIPID PANEL, NON FASTING Specimen Type: SERUM No comment entered. Ordering Provider: RACHELLE RODRIGUEZ Report Released Date/Time: May 26, 2024 03:48 PM Reporting Lab: [place] [facility] [place] [facility] [address] [facility] [id number] Performing Lab: [place] [facility] [place] [facility] [address] [facility] [phone] CHOLESTEROL 174 mg/dL TRIGLYCERIDE 156 mg/dL H 0-150 LDL calculated 101 mg/dL 0-129 CHOL/HDL 4.1 HDL CHOLESTEROL 42 mg/dL 40-60 Vital Signs: All taken on the encounter date This section contains inpatient and outpatient Vital Signs collected on the date of the Encounter. Date/Time Temperature Pulse Blood Pressure Respiratory Rate SP02 Pain Height Weight Body Mass Index Source Jun 08, 2024 08:40 AM 137/80 [place] [facility] [place] [facility] [facility] Jun 08, 2024 08:20 AM 97.6 68 147/76 16 99 0 226 31 [place] [facility] Social History: Smoking Status (Most current) and Tobacco Use (All prior to encounter date) This section includes the most current, and the historical, smoking and tobacco- related health factors from the [place] facility where the Encounter took place. Current Smoking Status This section includes the most current smoking, or tobacco-related health factor, from the [place] facility where the Encounter took place. Date/Time Current Smoking Status Comment Facil ity Jun 08, 2024 08:30 AM VA-TOBACCO NEVER U SED CIGARETTES [facility] Tobacco Use History This section includes a history of the smoking, or tobacco-related health factors, that were collected on or before the date of the Encounter. The data comes from the [place] facility where the Encounter took place. Date/Time Smoking Status/Tobacco Use Comment F acility Jun 08, 2024 08:30 AM VA-TOBACCO NEVER U SED OTHER TYPE [facility] [place] [facility] Jun 10, 2023 08:30 AM VA-TOBACCO NEVER USED [facility] [place] [facility] Jun 10, 2022 09:00 AM VA-TOBACCO NEVER USED [facility] [place] [facility] Jun 11, 2021 03:00 PM VA-TOBACCO FORMER USER [facility] [place] [facility] Jun 11, 2021 03:00 PM VA-TOBACCO QUIT 15 YRS OR MORE [place] [facility] [place] [facility] Jun 02, 2020 08:00 AM VA-TOBACCO FORMER USER [place] [facility] [place] [facility] Jun 02, 2020 08:00 AM VA-TOBACCO QUIT 15 YRS OR MORE [place] [facility] [place] [facility] Jun 04, 2018 08:14 AM VA-TOBACCO NEVER USED [place] [facility] [place] [facility] May 14, 2017 08:24 AM QUIT TOBACCO USE > 7 YEARS AGO [place] [facility] [place] [facility] Jun 13, 2016 10:57 AM QUIT TOBACCO USE 1 -7 YEARS AGO [facility] Advance Directives: All historical and current Section Date Range: From patient's date of to the date document was created. This section includes ALL of a patient's completed or amended [place] Advance and Rescinded Directives. The entries below indicate that a directive exists for the patient, but an actual copy is not included with this document. The data comes from all [place] facilities. Date Advance Directives Provider Source Jun 16, 2017 ADVANCE DIRECTIVE SUNNY TRUONG [facility] Encounter Notes: All associated encounter notes This section contains the clinical notes associated to the Encounter. Date/Time Encounter Note(s) Provider Source Jun 08, 2024 08:24 AM PREVENTIVE MEDICIN E NURSING NOTE: LOCAL TITLE: CLINICAL REMINDERS/NURSING STANDARD TITLE: PREVENTIVE MEDICINE NURSING NOTE DATE OF NOTE: JUN 08, 2024@08:24 ENTRY DATE: JUN 08, 2024@08:24:35 AUTHOR: KAITLYN ALMODOVAR EXP COSIGNER: URGENCY: STATUS: COMPLETED Advance Directive Screen MH AD: Patient has an Advance Directive on file at this [facility]. No updates are needed at this time. The patient received education about Advance Directives and written notification of his/her rights. Suicide Screen: C-SSRS Screening [place] Suicide Severity Rating Scale (C-SSRS) screener 1. Over the past month, have you wished you were or wished you could go to sleep and not wake up? No 2. Over the past month, have you had any actual thoughts of killing yourself? No 3. Over the past month, have you been thinking about how you might do this? Response not required due to responses to other questions. 4. Over the past month, have you had these thoughts and had some intention of acting on them? Response not required due to responses to other questions. 5. Over the past month, have you started to work out or worked out the details of how to kill yourself? Response not required due to responses to other questions. 6. If yes, at any time in the past month did you intend to carry out this plan? Response not required due to responses to other questions. 7. In your lifetime, have you ever done anything, started to do anything, or prepared to do anything to end your life (for example, collected pills, obtained a gun, gave away valuables, went to the roof but didn't jump)? No 8. If YES, was this within the past 3 months? Response not required due to responses to other questions. Homelessness/Food Insecurity Screen: In the past 2 months, have you been living in stable housing that you own, rent, or stay in as part of a household? Yes - Living in stable housing. Are you worried or concerned that in the next 2 months you may NOT have stable housing that you own, rent, or stay in as part of a household? No - Not worried about housing near future The reports the following: Within the past 12 months, you worried whether your food would run out before you got money to buy more. Never true Within the past 12 months, the food you bought just didn't last and you didn't have money to get more. Never true Follow Up Colonoscopy: Colonoscopy is due based on information available to this reminder. A colonoscopy has been completed elsewhere and we are waiting for results. per completed in June at [facility], fax sent to obtain results Depression Screening: Perform PHQ-2 A PHQ-2 screen was performed. The score was 0 which is a negative screen for depression. Over the past two weeks, how often have you been bothered by the following problems? 1. Little interest or pleasure in doing things Not at all 2. Feeling down, depressed, or hopeless Not at all Falls & Incontinence Screen: Falls Screen: 4. No falls within the past year. Incontinence Screen No incontinence. Tobacco Use Screening: The patient has never smoked cigarettes. The patient has never used other types of tobacco. Alcohol Use Screen (AUDIT-C): Alcohol Screen: SCREEN FOR ALCOHOL (AUDIT-C) An alcohol screening test (AUDIT-C) was negative (score=2). 1. How often did you have a drink containing alcohol in the past year? Consider a drink to be a 12 ounce can or bottle of regular beer, 8 ounces of malt liquor, a 5 ounce glass of table wine, or a 1.5 ounce shot of liquor (like scotch, gin, or vodka). Two to four times a month 2. How many drinks containing alcohol did you have on a typical day when you were drinking in the past year? One or two drinks 3. How often did you have six or more drinks on one occasion in the past year? Never Sexual Orientation: The patient thinks of their sexual orientation as: Straight or Heterosexual /es/ KAITLYN ALMODOVAR LPN License Practical Nurse Signed: 06/08/2024 08:26 KAITLYN ALMODOVAR [place] [facility] Jun 08, 2024 07:58 AM PHYSICIAN NOTE: LOCAL TITLE: MD NOTE STANDARD TITLE: PHYSICIAN NOTE DATE OF NOTE: JUN 08, 2024@07:58 ENTRY DATE: JUN 08, 2024@07:58:58 AUTHOR: RACHELLE RODRIGUEZ COSIGNER: URGENCY: STATUS: COMPLETED ENID MANJARREZ is a 79 year old WHITE MALE who is being seen today in primary care for routine yearly follow up. ==== CARE TEAM ==== Community Primary Care Provider: Dr. Isabella Traylor, [facility], [place] Specialists: Community Specialists: KRYSTAL Carrero- quique quijano 07/19/2023 urology- Urology in [place], Dr. Sanchez ==== HISTORY ==== PERIOD OF SERVICE - [place] SERVICE CONNECTED % - NONE FOUND [place], bessie mate, [phone], +[place], +AO ==== HISTORY OF PRESENT ILLNESS ==== Patient presents today for yearly follow-up ==== RELEVANT PAST MEDICAL HISTORY ==== Active problems - Computerized Problem List is the source for the followin. Exposure to potentially hazardous substance Original TAMIKO Screen completed 06/10/22 2. Dupuytren's disease of palm 3. Obesity 4. Benign essential hypertension 5. Raised PSA status post prostate biopsy in the past came out negative ==== PAST SURGICAL HISTORY ==== lumbar laminectomy bilateral Dupuytren's contracture surgery ==== FAMILY HISTORY ==== Mother: at 96, CAD Father: age 69, CAD, h/o rhuematic fever Siblings: 1 brother- diabetes ==== SOCIAL HISTORY ==== Background: born and raised in [place], 2 years of college- studied agronomy Marital Status: intermediate manager female partner 2020 Children: no Lives with: alone. 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 does all his own ADLs, drives ==== ALLERGIES ==== Patient has answered NKA ==== MEDICATIONS ==== VA and Non VA meds were reconciled with the patient who left with a corrected copy. Active and Recently Outpatient Medications (excluding Supplies): Active Non-VA Medications Status 1) Non-VA ASPIRIN 81MG EC TAB 81MG BY MOUTH EVERY DAY ACTIVE 2) Non-VA CHOLECALCIF 50MCG (D3-2,000UNIT) TAB 2000UNIT BY ACTIVE MOUTH EVERY DAY 3) Non-VA FISH OIL 1000MG (500MG DHA/EPA) CAP 1000MG BY MOUTH ACTIVE EVERY DAY 4) Non-VA LISINOPRIL 10MG TAB 10MG BY MOUTH EVERY DAY ACTIVE ==== REVIEW OF SYMPTOMS ==== POSITIVE FOR: NEGATIVE FOR: CONSTITUTION: no weight loss/gain, fatigue, fevers, night sweats HEENT: no vision problems, hearing loss,swallowing difficulties, sinus pain CV: no chest pain, palpitations, dyspnea on exertion, orthopnea RESP: no cough, shortness of breath, wheezing GI: no abdominal pain, N/V/D, constipation, blood in stool, normal appetite : no urinary frequency, nocturia, hematuria MUSC: no joint pain, joint swelling, muscle aches NEURO: no headaches, dizziness, memory loss, tremor, weakness PSYCH: no depression, anxiety, suicidal or homicidal thoughts SKIN: no rash, new skin lesions ==== PHYSICAL EXAM ==== Vitals: - - - - - - - B/P: 147/76 (06/08/2024 08:20) repeat imporved 137/80 (06/08/2024 08:40) pulse: 68 (06/08/2024 08:20) resp: 16 (06/08/2024 08:20) temp: 97.6 F [36.4 C] (06/08/2024 08:20) Ht: 71.5 in [181.6 cm] (06/01/2019 08:15) Wgt: 226 lb [102.51 kg] (06/08/2024 08:20) BMI: BMI: 31.1 Exam: - - - - - - - General: A&O x 3, no acute distress, normal affect and mood Neck: normal thyroid, normal carotids- no bruits CV: RRR S1S2, no murmur Resp: LCTA bilat, no wheezing, rales or rhonchi Neuro: grossly intact, no visible tremor, normal memory and speech Extremities: normal movement of extremities, normal gait, normal strength minimal ankle edema R>L ==== RECENT LABS ==== BMP (FASTING) Collection DT Specimen Test Name Result Units Ref Range 06/01/2024 08:08 SERUM UREA NITROGEN 16 mg/dL 7 - 25 06/01/2024 08:08 SERUM GLUCOSE 92 mg/dL 65 - 100 06/01/2024 08:08 SERUM SODIUM 139 mmol/L 135 - 145 06/01/2024 08:08 SERUM POTASSIUM 4.5 mmol/L 3.5 - 5.0 06/01/2024 08:08 SERUM CHLORIDE 103 mmol/L 100 - 110 06/01/2024 08:08 SERUM CO2 25 mEq/L 20 - 30 06/01/2024 08:08 SERUM CREATININE, Serum 1.22 mg/dL 0.50 - 1.40 05/30/2021 08:01 SERUM eGFR (IDMS) 59 L Ref: >=60 LIPID PANEL TREND Collection DT Spec CHOL HDL CHO/HDL LDL-c TRIG 06/01/2024 08:08 SERUM 174 42 4.1 101 156 H 05/30/2023 07:49 SERUM 158 42 3.8 96 100 06/03/2022 07:54 SERUM 167 43 3.9 105 97 05/30/2021 08:01 SERUM 175 45 3.9 110 98 05/17/2020 07:56 SERUM 161 51 3.2 86 119 ==== ASSESSMENT AND PLAN ==== Active problems - Computerized Problem List is the source for the followin. Exposure to potentially hazardous substance Original TAMIKO Screen completed 06/10/22 2. Dupuytren's disease of palm- s/p bilateral surgery- now able to golf again 3. Obesity 4. Benign essential hypertension- on lisinopril 5. Raised PSA status post prostate biopsy in the past came out negative. PSA 3.09 in 2019. sees [facility] yearly, h/o AO ==== HEALTH MAINTENANCE ==== Colonoscopy - Dr. Carrero- last colo 07/19/2023 Abdominal Aortic Aneurysm Screening n/a- never smoked Prostate screening - previous bx neg, last PSA 3.09 in 2019. sees [facility] yearly as h/o AO exposure Tetanus: due every 10 years Pneumonia Vacccine: Flu Vaccine: due yearly Covid Vaccine: due yearly ==== FOLLOW UP ==== f/u in 12 months VISIT TYPE:a MODERATE complexity visit where 30 minutes was spent in direct patient care, review of records and documentation. Upcoming Appointments: 06/08/2024 08:30 CWM/NO/PACT EIGHT Follow Up Colonoscopy: Colonoscopy is due based on information available to this reminder. Prior/outside Colonoscopy results: Dr. Carrero- [facility], negative, no furhter (requesting results) Date: July 19, 2023 Due to patient's age, risk level, and/or co-morbid conditions, discontinuation of asymptomatic colorectal cancer screening/surveillance is recommended. This recommendation has been discussed with the patient and/or guardian Comment: agree Medication Reconciliation: Outpatient: Has the patient been taking medications as documented in the EMLR? YES: The patient has been taking medications as documented in the EMLR. Essential Medication List for Review used to complete this medication reconciliation. INCLUDED IN THIS LIST: Alphabetical list of active outpatient prescriptions dispensed from this [place] (local) and dispensed from another [place] or [facility]D facility (remote) as well as inpatient orders (local, pending and active), local clinic medications, locally documented non-VA medications, and local prescriptions that have or been discontinued in the past 90 days. - All changes in medications, including all non-VA/Herbal/OTC medications were entered into CPRS. - If there were any medications the patient should no longer take, they were discontinued. - The patient/caregiver was instructed to update this list, discard old lists, and take this list to the next appointment, whether with a VA or non-VA provider. /elba/ RACHELLE RODRIGUEZ D.O. PHYSICIAN Signed: 06/08/2024 08:48 RACHELLE RODRIGUEZ [place] [facility]
== END ==
LOC: HO.CARD 08:33
PROVIDERS: PCP Internal Medicine; Visit Provider Internal Medicine
DX: R00.2 Palpitations (principal); I49.3 Ventricular premature depolarization
CPT/HCPCS: 93242; 93308; Q9957

== ENCOUNTER → 2024-07-21 08:42 | Outpatient (BNV) | payer MEDICARE, SELFPAY | PROVIDERS: PCP Internal Medicine; Visit Provider Internal Medicine Cardiovascular Disease | DX: R94.31 Abnormal electrocardiogram [ECG] [EKG] (principal) | CPT/HCPCS: 93308 ==

== ENCOUNTER 2024-07-30 09:12 | Outpatient (AMB) | payer MEDICARE, SELFPAY ==
[2024-07-30 09:20] VITALS: BP 142/70; PULSE 83; BMI 30.2
--- NOTE | 2024-07-30 09:20 | A.OFFVIS_ITS ---
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 He was then transported to [facility] ED for evaluation. His EKG did show frequent PVCs. His syncope was thought to be most likely related to poor p.o. intake and low blood pressure. He was monitored overnight with only occasional PVCs seen on tele monitoring, no NSVT runs. An oupt echocardiogram showed low normal EF. He now presents for follow-up. Today he states that he did wear a Holter monitor since his hospital discharge. It was mailed back for reading. No results available at the time of this visit. No recurrent presyncope, syncope, falls. He has fully recovered from his viral illness. No chest discomfort at rest or with activity. No shortness of breath, PND, orthopnea or edema. He does not notice heart palpitations. He has good activity tolerance and goes to the gym 5 times weekly, using treadmill and bike. No history of heart disease but says it runs in his family. [facility] Medical History (Updated 07/30/24 @ 11:09 by Shira Winston, CORA-C) PVC (premature ventricular contraction) Essential hypertension HTN (hypertension) Dupuytren's contracture of left hand Hx of spinal stenosis Elevated PSA Dupuytren's contracture of right hand Surgical History Hx of hand surgery History of back surgery Hx of colonoscopy Family History Father CAD (coronary artery disease) Brother Prostate cancer Social History Household Members: None Housing: House Do you presently have visiting nurse or other home services: No Alcohol intake: never Patient Tobacco Use Status: Never used Tobacco e-Cigarette/Vaping Use: Never Used Second Hand Smoke Exposure: No Advance Directives Date on File: 09/18/22 service: Yes Current occupational status: employed Cognitive needs: No Hearing needs: No Vision needs: No Review of Systems Const All systems reviewed & are unremarkable except as noted in HPI and below Card Denies chest pain, Denies chest pain at rest, Denies chest pain with activity, Denies rapid heart rate, Denies leg edema, Denies dyspnea on exertion and Denies orthopnea Resp Denies dyspnea on exertion GI Denies no additional complaints Musc Denies no additional complaints Physical Exam Vital Signs: Last Vital Signs Pulse 83 07/30/24 09:20 BP 142/70 H 07/30/24 09:20 BMI result Body Mass Index 30.2 Const General: cooperative, healthy appearing, comfortable and no acute distress Orientation/consciousness: patient oriented x3 Neck Neck: Yes normal visual inspection and Yes no JVD Resp Effort & Inspection: normal respiratory effort Auscultation: clear to auscultation bilaterally, no rales, no rhonchi and no wheezes Cardio Jugular venous distension: no JVD Rate: regular rate Rhythm: regular rhythm Heart sounds: S1 normal heart sound present, S2 normal heart sound present, no murmurs and no rubs Neuro General: patient oriented x3 Extrem General: Yes normal to inspection, No no pedal edema and No calf tenderness Psych Appearance: grossly normal Mental Status: mental status grossly normal Speech and movement: Normal speech and movement present Assessment & Plan Assessment & Plan (1) Syncope: Code(s): R55 - Syncope and collapse Category: Medical Plan: Recent syncopal event in the setting of viral illness and standing in line. He had not been eating or drinking properly at that time. He had no significant orthostatic blood pressure drop once fully evaluated. His EKG did show frequent PVCs. Overnight tele monitoring showed occasional PVCs, no NSVT runs. It was thought that his syncope was most likely related to orthostatic hypotension. He was given IV fluids. An echocardiogram done while inpatient did show EF 60-65%, no valve abnormalities and no overt regional wall motion abnormalities. Study quality was fair. A repeat limited study done with contrast as an outpatient did show EF 50-55%. His low normal EF could be related to frequent PVCs. A Holter monitor has been completed however result is not available as of yet. He has good activity tolerance and no anginal symptoms so ischemia in unlikely however will evaluate with an exercise tolerance test. He is agreeable to this plan. Reviewed the benefits of staying well hydrated. He can continue activity as tolerated. No medication changes at this time. Cardiology office visit 3 months, sooner if needed. (2) PVC (premature ventricular contraction): Code(s): I49.3 - Ventricular premature depolarization Category: Medical Plan: As above (3) Essential hypertension: Code(s): I10 - Essential (primary) hypertension Category: Medical Plan: Blood pressure today 142/70. Recheck done by me later in the visit 132/68. He is on lisinopril 10 mg daily. No changes made. (4) Hospital discharge follow-up: Code(s): Z09 - Encounter for follow-up examination after completed treatment for conditions other than malignant neoplasm Category: Medical Plan: As above Plan Time spent on chart review, documentation, interview and assessment Orders: Orders CA stress test Today I49.3 - Ventricular premature depolarization Coding Level of Care Code Est Pt Level 4 (46955) Complex EM visit Add On G2211 Diagnoses Syncope R55 PVC (premature ventricular contraction) I49.3 Essential hypertension I10 Hospital discharge follow-up Z09 Time Spent (min) 28
--- OUTSIDE RECORDS SUMMARY | 2024-07-30 09:42 | XMS_ITS | Continuity of Care Document ---
Author Name [facility] Organization [facility] Care Team Providers Care Diploma Maker Name Role Phone [facility] Unavailable Unavailable Problems Combined list of problems from Department of Defense and Veterans Affairs facilities. It does not include entries that were removed or entered in error. Problem Status Onset Date Problem Type Date of Resolution Comments Source Benign essential hypertension [facility] Dupuytren's disease of palm [facility] [place] [facility] Exposure to potentially hazardous substance Active Condition Aug 20, 2023 Entered By: SONYA LOFTON Comment: Original TAMIKO Screen completed 06/10/22 [facility] [place] [facility] Obesity [facility] [place] [facility] Raised PSA Active Condition Jun 13 Entered By: CA OROSCO [facility] Comment: status post prostate biopsy in the past came out negative [facility] [place] [facility] Diagnosis: ICD-10-CM Z77.29 Contact with and exposure to other hazardous substances Active [facility] [place] [facility] Diagnosis: ICD-10-CM Z23 Encounter for immunization Active Diagnosis [facility] YAJAIRA DALEY [place] [facility] Diagnosis: ICD-10-CM I10 Essential (primary) hypertension Active Diagnosis [facility] [place] Medications Combined list of outpatient medications from [...] DAY ORAL ACTIVE AWILDA OROSCO JAWGWENDOLYN 2015 [facility] CHOLECALCIF WILMER 50MCG [...] Site Reaction Lot Number CVX Code 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 Comments Source INFLUENZA, HIGH-DOSE, TRIVALENT, PF 2023 SANDRO ESTRELLA LEFT DELTO ID [id number] 135 complet ed [facility] [place] DOSE 2 2020 207 complet ed MOD; [id number]; 1 [facility] COVID-19 (MODERNA), MRNA, LNP-S, PF, 100 MCG/0.5 ML DOSE 1 2020 207 complet ed MOD; [id number]; 1 [facility] [place] [...] May 26, 2024 03:48 PM Reporting Lab: [facility] [place] [facility] [address] [facility] [address] Performing Lab: [facility] [address] [facility] [address] [facility] [place] [facility] BASIC METABOLIC PANEL (non-fast ing) GLUCOSE [MASS/VOLUM E] IN SERUM OR PLASMA 92 mg/dL 65 - 100 06/01 Specimen Type: SERUM No comment entered. Ordering Provider: WENDY RODRIGUEZ Report Released Date/Time: May 26, 2024 03:48 PM Reporting Lab: [facility] [place] [facility] [address] [facility] [address] Performing Lab: [facility] [address] [facility] [address] [facility] BASIC METABOLIC PANEL (non-fast ing) SODIUM [MOLES/VOLU ME] IN SERUM OR PLASMA 139 mmol/L 135 - 145 06/01 Specimen Type: SERUM No comment entered. Ordering Provider: WENDY RODRIGUEZ Report Released Date/Time: May 26, 2024 03:48 PM Reporting [facility] [address] [address] Performing Lab: [facility] [address] [address] [facility] BASIC METABOLIC PANEL (non-fast ing) POTASSIUM [MOLES/VOLU ME] IN SERUM OR PLASMA 4.5 mmol/L 3.5 - 5.0 06/01 Specimen Type: SERUM No comment entered. Ordering Provider: WENDY RODRIGUEZ Report Released Date/Time: May 26, 2024 03:48 PM Reporting Lab: [address] [address] Performing [facility]: [facility] [address] [address] [facility] BASIC METABOLIC PANEL (non-fast ing) CHLORIDE [MOLES/VOLU ME] IN SERUM OR PLASMA 103 mmol/L 100 - 110 06/01 Specimen Type: SERUM No comment entered. Ordering Provider: WENDY RODRIGUEZ Report Released Date/Time: May 26, 2024 03:48 PM Reporting [facility] [address] [address] Performing Lab: [facility] [address] [address] [facility] BASIC METABOLIC PANEL (non-fast ing) CARBON DIOXIDE, TOTAL [MOLES/VOLU ME] IN SERUM OR PLASMA 25 meq/L 20 - 30 06/01 Specimen Type: SERUM No comment entered. Ordering Provider: WENDY RODRIGUEZ Report Released Date/Time: May 26, 2024 03:48 PM Reporting Lab: [address] [address] Performing Lab: [facility] [address] [facility] [address] [facility] BASIC METABOLIC PANEL (non-fast ing) CREATININE [MASS/VOLUM E] IN SERUM OR PLASMA 1.22 mg/dL 0.50 - 1.40 06/01 Specimen Type: SERUM No comment entered. Ordering Provider: WENDY RODRIGUEZ Report Released Date/Time: May 26, 2024 03:48 PM Reporting Lab: [facility] [address] [facility] [address] Performing Lab: [address] [address] [facility] BASIC METABOLIC PANEL (non-fast ing) GLOMERULAR FILTRATION RATE/1.73 SQ M.PREDICTED [VOLUME RATE/AREA] IN SERUM, PLASMA OR BLOOD BY CREATININE- BASED FORMULA (CKD-EPI 2020) 61 mL/min 60 06/01 Specimen Type: SERUM No comment entered. Ordering Provider: WENDY RODRIGUEZ Report Released Date/Time: May 26, 2024 03:48 PM Reporting Lab: [address] [address] Performing Lab: [address] [address] [facility] LIPID PANEL, NON FASTING CHOLESTEROL [MASS/VOLUM E] IN SERUM OR PLASMA 174 mg/dL 06/01 Specimen Type: SERUM No comment entered. Ordering Provider: WENDY RODRIGUEZ Report Released Date/Time: May 26, 2024 03:48 PM Reporting Lab: [address] [address] Performing Lab: [address] [address] [facility] LIPID PANEL, NON FASTING TRIGLYCERID E [MASS/VOLUM E] IN SERUM OR PLASMA 156 mg/dL 0 - 150 06/01 H Specimen Type: SERUM No comment entered. Ordering Provider: WENDY RODRIGUEZ Report Released Date/Time: May 26, 2024 03:48 PM Reporting Lab: [facility] [place] [facility] [address] [facility] [address] Performing Lab: [facility] [place] [facility] [address] [facility] [address] [facility] [place] [facility] LIPID PANEL, NON FASTING CHOLESTEROL IN LDL [MASS/VOLUM E] IN SERUM OR PLASMA BY CALCULATION 101 mg/dL 0 - 129 06/01 Specimen Type: SERUM No comment entered. Ordering Provider: WENDY RODRIGUEZ Report Released Date/Time: May 26, 2024 03:48 PM Reporting Lab: [facility] [place] [facility] [address] [facility] [address] Performing Lab: [facility] [place] [address] [address] [facility] LIPID PANEL, NON FASTING CHOLESTEROL .TOTAL/CHOL ESTEROL IN HDL [MASS RATIO] IN SERUM OR PLASMA 4.1 06/01 Specimen Type: SERUM No comment entered. Ordering Provider: WENDY RODRIGUEZ Report Released Date/Time: May 26, 2024 03:48 PM Reporting Lab: [facility] [place] [facility] [address] [facility] [address] Performing Lab: [facility] [place] [address] [address] [facility] LIPID PANEL, NON FASTING CHOLESTEROL IN HDL [MASS/VOLUM E] IN SERUM OR PLASMA 42 mg/dL 40 - 60 06/01 Specimen Type: SERUM No comment entered. Ordering Provider: WENDY RODRIGUEZ Report Released Date/Time: May 26, 2024 03:48 PM Reporting Lab: [facility] [place] [facility] [address] [facility] [address] Performing Lab: [facility] [place] [address] [address] [facility] CBC AND DIFF (AUTO) LEUKOCYTES [#/VOLUME] IN BLOOD BY AUTOMATED COUNT 5.46 10*3/u L 4.50 - 11.00 05/30 Specimen Type: BLOOD No comment entered. Ordering Provider: KERI OROSCO Report Released Date/Time: May 23, 2023 03:18 PM Reporting Lab: [facility] [place] [facility] [address] [facility] [address] Performing Lab: [facility] [place] [facility] [address] [facility] [address] [facility] [place] [facility] CBC AND DIFF (AUTO) ERYTHROCYTE S [#/VOLUME] IN BLOOD BY AUTOMATED COUNT 4.48 10*6/u L 4.23 - 5.66 05/30 Specimen Type: BLOOD No comment entered. Ordering Provider: KERI OROSCO Report Released Date/Time: May 23, 2023 03:18 PM Reporting Lab: [facility] [place] [address] [address] Performing Lab: [facility] [place] [facility] [address] [facility] [address] [facility] [place] [facility] CBC AND DIFF (AUTO) HEMOGLOBIN [MASS/VOLUM E] IN BLOOD 14.1 g/dL 12.8 - 17 05/30 Specimen Type: BLOOD No comment entered. Ordering Provider: KERI OROSCO Report Released Date/Time: May 23, 2023 03:18 PM Reporting Lab: [facility] [place] [address] [address] Performing Lab: [facility] [place] [facility] [address] [facility] [address] [facility] [place] [facility] CBC AND DIFF (AUTO) HEMATOCRIT [VOLUME FRACTION] OF BLOOD BY AUTOMATED COUNT 41.9 39.2 - 50.4 05/30 Specimen Type: BLOOD No comment entered. Ordering Provider: KERI OROSCO Report Released Date/Time: May 23, 2023 03:18 PM Reporting Lab: [facility] [place] [facility] [address] [facility] [address] Performing Lab: [facility] [place] [address] [address] [facility] [place] [facility] CBC AND DIFF (AUTO) MCV [ENTITIC VOLUME] BY AUTOMATED COUNT 93.5 fL 82 - 99 05/30 Specimen Type: BLOOD No comment entered. Ordering Provider: KERI OROSCO Report Released Date/Time: May 23, 2023 03:18 PM Reporting Lab: [facility] [place] [facility] [address] [facility] [address] Performing Lab: [facility] [place] [facility] [address] [facility] [address] [facility] [place] [facility] CBC AND DIFF (AUTO) MCHC [MASS/VOLUM E] BY AUTOMATED COUNT 33.7 g/dL 30.8 - 35.1 05/30 Specimen Type: BLOOD No comment entered. Ordering Provider: KERI OROSCO Report Released Date/Time: May 23, 2023 03:18 PM Reporting Lab: [facility] [place] [facility] [address] [facility] [address] Performing Lab: [facility] [place] [facility] [address] [facility] [address] [facility] [place] [facility] CBC AND DIFF (AUTO) PLATELETS [#/VOLUME] IN BLOOD BY AUTOMATED COUNT 309 10*3/u L 140 - 360 05/30 Specimen Type: BLOOD No comment entered. Ordering Provider: KERI OROSCO Report Released Date/Time: May 23, 2023 03:18 PM Reporting Lab: [facility] [place] [facility] [address] [facility] [address] Performing Lab: [facility] [place] [facility] [address] [facility] [address] [facility] [place] [facility] CBC AND DIFF (AUTO) ERYTHROCYTE DISTRIBUTIO N WIDTH [RATIO] BY AUTOMATED COUNT 12.5 12.0 - 16.0 05/30 Specimen Type: BLOOD No comment entered. Ordering Provider: KERI OROSCO Report Released Date/Time: May 23, 2023 03:18 PM Reporting Lab: [facility] [place] [facility] [address] [facility] [address] Performing Lab: [facility] [place] [facility] [address] [facility] [address] [facility] [place] [facility] CBC AND DIFF (AUTO) MONOCYTES [#/VOLUME] IN BLOOD BY AUTOMATED COUNT 0.55 10*3/u L 0.30 - 1.10 05/30 Specimen Type: BLOOD No comment entered. Ordering Provider: KERI OROSCO Report Released Date/Time: May 23, 2023 03:18 PM Reporting Lab: [facility] [place] [facility] [address] [facility] [address] Performing Lab: [facility] [place] [facility] [address] [facility] [address] [facility] [place] [facility] CBC AND DIFF (AUTO) MCH [ENTITIC MASS] BY AUTOMATED COUNT 31.5 pg 26.2 - 32.6 05/30 Specimen Type: BLOOD No comment entered. Ordering Provider: KERI OROSCO Report Released Date/Time: May 23, 2023 03:18 PM Reporting Lab: [facility] [place] [facility] [address] [facility] [address] Performing Lab: [facility] [place] [facility] [address] [facility] [address] [facility] [place] [facility] CBC AND DIFF (AUTO) NEUTROPHILS /100 LEUKOCYTES IN BLOOD BY AUTOMATED COUNT 39.4 43.7 - 75.8 05/30 L Specimen Type: BLOOD No comment entered. Ordering Provider: KERI OROSCO Report Released Date/Time: May 23, 2023 03:18 PM Reporting Lab: [facility] [place] [facility] [address] [facility] [address] Performing Lab: [facility] [place] [address] [address] [facility] [place] [facility] CBC AND DIFF (AUTO) LYMPHOCYTES /100 LEUKOCYTES IN BLOOD BY AUTOMATED COUNT 44.5 14.0 - 42.3 05/30 H Specimen Type: BLOOD No comment entered. Ordering Provider: KERI OROSCO Report Released Date/Time: May 23, 2023 03:18 PM Reporting Lab: [facility] [place] [facility] [address] [facility] [address] Performing Lab: [facility] [place] [facility] [address] [facility] [address] [facility] [place] [facility] CBC AND DIFF (AUTO) MONOCYTES/1 00 LEUKOCYTES IN BLOOD BY AUTOMATED COUNT 10.1 5.1 - 13.7 05/30 Specimen Type: BLOOD No comment entered. Ordering Provider: KERI OROSCO [employer] Report Released Date/Time: May 23, 2023 03:18 PM Reporting Lab: [facility] [place] [facility] [address] [facility] [address] Performing Lab: [facility] [place] [facility] [address] [facility] [address] [facility] [place] [facility] CBC AND DIFF (AUTO) EOSINOPHILS /100 LEUKOCYTES IN BLOOD BY AUTOMATED COUNT 4.2 0.4 - 6.8 05/30 Specimen Type: BLOOD No comment entered. Ordering Provider: KERI OROSCO [employer] Report Released Date/Time: May 23, 2023 03:18 PM Reporting Lab: [facility] [place] [facility] [address] [facility] [address] Performing Lab: [facility] [place] [facility] [address] [facility] [address] [facility] [place] [facility] CBC AND DIFF (AUTO) BASOPHILS/1 00 LEUKOCYTES IN BLOOD BY AUTOMATED COUNT 1.6 0.1 - 2.0 05/30 Specimen Type: BLOOD No comment entered. Ordering Provider: KERI OROSCO [employer] Report Released Date/Time: May 23, 2023 03:18 PM Reporting Lab: [facility] [place] [facility] [address] [facility] [address] Performing Lab: [facility] [place] [facility] [address] [facility] [address] [facility] [place] [facility] CBC AND DIFF (AUTO) NEUTROPHILS [#/VOLUME] IN BLOOD BY AUTOMATED COUNT 2.15 10*3/u L 2.20 - 7.60 05/30 L Specimen Type: BLOOD No comment entered. Ordering Provider: KERI OROSCO Report Released Date/Time: May 23, 2023 03:18 PM Reporting Lab: [facility] [place] [facility] [address] [facility] [address] Performing Lab: [facility] [place] [address] [address] [facility] [place] [facility] CBC AND DIFF (AUTO) LYMPHOCYTES [#/VOLUME] IN BLOOD BY AUTOMATED COUNT 2.43 10*3/u L 1.00 - 3.20 05/30 Specimen Type: BLOOD No comment entered. Ordering Provider: KERI OROSCO Report Released Date/Time: May 23, 2023 03:18 PM Reporting Lab: [facility] [place] [address] [address] Performing Lab: [facility] [place] [address] [address] [facility] [place] [facility] CBC AND DIFF (AUTO) EOSINOPHILS [#/VOLUME] IN BLOOD BY AUTOMATED COUNT 0.23 10*3/u L 0.03 - 0.44 05/30 Specimen Type: BLOOD No comment entered. Ordering Provider: KERI OROSCO Report Released Date/Time: May 23, 2023 03:18 PM Reporting Lab: [facility] [place] [address] [address] Performing Lab: [facility] [place] [address] [address] [facility] [place] [facility] CBC AND DIFF (AUTO) BASOPHILS [#/VOLUME] IN BLOOD BY AUTOMATED COUNT 0.09 10*3/u L 0.01 - 0.13 05/30 Specimen Type: BLOOD No comment entered. Ordering Provider: KERI OROSCO Report Released Date/Time: May 23, 2023 03:18 PM Reporting Lab: [facility] [place] [address] [address] Performing Lab[facility] [place] [facility] [address] [facility] [address] [facility] [place] [facility] CBC AND DIFF (AUTO) IMMATURE GRANULOCYTE S/100 LEUKOCYTES IN BLOOD BY AUTOMATED COUNT 0.2 0.0 - 0.7 05/30 Specimen Type: BLOOD No comment entered. Ordering Provider: KERI OROSCO Report Released Date/Time: May 23, 2023 03:18 PM Reporting Lab: [facility] [place] [facility] [address] [facility] [address] Performing Lab: [facility] [place] [facility] [address] [facility] [address] [facility] [place] [facility] CBC AND DIFF (AUTO) IMMATURE GRANULOCYTE S [#/VOLUME] IN BLOOD 0.01 10*3/u L 0.00 - 0.06 05/30 Specimen Type: BLOOD No comment entered. Ordering Provider: KERI OROSCO Report Released Date/Time: May 23, 2023 03:18 PM Reporting Lab: [facility] [place] [facility] [address] [facility] [address] Performing Lab: [facility] [place] [facility] [address] [facility] [address] [facility] [place] [facility] LIPID PANEL FASTING CHOLESTEROL [MASS/VOLUM E] IN SERUM OR PLASMA 158 mg/dL 05/30 Specimen Type: SERUM No comment entered. Ordering Provider: KERI OROSCO Report Released Date/Time: May 23, 2023 03:18 PM Reporting Lab: [facility] [place] [facility] [address] [facility] [address] Performing Lab: [facility] [place] [facility] [address] [facility] [address] [facility] [place] [facility] LIPID PANEL FASTING TRIGLYCERID E [MASS/VOLUM E] IN SERUM OR PLASMA 100 mg/dL 0 - 150 05/30 Specimen Type: SERUM No comment entered. Ordering Provider: KERI OROSCO Report Released Date/Time: May 23, 2023 03:18 PM Reporting Lab: [facility] [place] [facility] [address] [facility] [address] Performing Lab: [facility] [place] [facility] [address] [facility] [address] [facility] [place] [facility] LIPID PANEL FASTING CHOLESTEROL IN LDL [MASS/VOLUM E] IN SERUM OR PLASMA BY CALCULATION 96 mg/dL 0 - 129 05/30 Specimen Type: SERUM No comment entered. Ordering Provider: KERI OROSCO Report Released Date/Time: May 23, 2023 03:18 PM Reporting Lab: [facility] [place] [facility] [address] [facility] [address] Performing Lab: [facility] [place] [facility] [address] [facility] [address] [facility] [place] [facility] LIPID PANEL FASTING CHOLESTEROL .TOTAL/CHOL ESTEROL IN HDL [MASS RATIO] IN SERUM OR PLASMA 3.8 05/30 Specimen Type: SERUM No comment entered. Ordering Provider: KERI OROSCO Report Released Date/Time: May 23, 2023 03:18 PM Reporting Lab: [facility] [place] [facility] [address] [facility] [address] Performing Lab: [facility] [place] [facility] [address] [facility] [address] [facility] [place] [facility] LIPID PANEL FASTING CHOLESTEROL IN HDL [MASS/VOLUM E] IN SERUM OR PLASMA 42 mg/dL 40 - 60 05/30 Specimen Type: SERUM No comment entered. Ordering Provider: KERI OROSCO Report Released Date/Time: May 23, 2023 03:18 PM Reporting Lab: [facility] [place] [facility] [address] [facility] [address] Performing Lab: [facility] [place] [facility] [address] [facility] [address] [facility] [place] [facility] BASIC METABOLIC PANEL (fasting) UREA NITROGEN [MASS/VOLUM E] IN SERUM OR PLASMA 14 mg/dL 7 - 25 05/30 Specimen Type: SERUM No comment entered. Ordering Provider: AHMED,MOHAM MED JAWED Report Released Date/Time: May 23, 2023 03:18 PM Reporting Lab: [facility] [place] [facility] [address] [facility] [address] Performing Lab: [facility] [place] [facility] [address] [facility] [address] [facility] [place] [facility] BASIC METABOLIC PANEL (fasting) GLUCOSE [MASS/VOLUM E] IN SERUM OR PLASMA 96 mg/dL 65 - 100 05/30 Specimen Type: SERUM No comment entered. Ordering Provider: KERI OROSCO [employer] Report Released Date/Time: May 23, 2023 03:18 PM Reporting Lab: [facility] [place] [facility] [address] [facility] [address] Performing Lab: [facility] [place] [facility] [address] [facility] [address] [facility] [place] [facility] BASIC METABOLIC PANEL (fasting) SODIUM [MOLES/VOLU ME] IN SERUM OR PLASMA 138 mmol/L 135 - 145 05/30 Specimen Type: SERUM No comment entered. Ordering Provider: K[employer]I OROSCO[employer] Report Released Date/Time: May 23, 2023 03:18 PM Reporting Lab: [facility] [place] [facility] [address] [facility] [address] Performing Lab: [facility] [place] [facility] [address] [facility] [address] [facility] [place] [facility] BASIC METABOLIC PANEL (fasting) POTASSIUM [MOLES/VOLU ME] IN SERUM OR PLASMA 4.3 mmol/L 3.5 - 5.0 05/30 Specimen Type: SERUM No comment entered. Ordering Provider: KERI OROSCO [employer] Report Released Date/Time: May 23, 2023 03:18 PM Reporting Lab: [facility] [place] [facility] [address] [facility] [address] Performing Lab: [facility] [place] [facility] [address] [facility] [address] [facility] [place] [facility] BASIC METABOLIC PANEL (fasting) CHLORIDE [MOLES/VOLU ME] IN SERUM OR PLASMA 104 mmol/L 100 - 110 12/01 /2023 Specimen Type: SERUM No comment entered. Ordering Provider: KERI ROOSCO Report Released Date/Time: May 23, 2023 03:18 PM Reporting Lab: [facility] [place] [address] [address] Performing Lab: [facility] [address] [address] [facility] BASIC METABOLIC PANEL (fasting) CARBON DIOXIDE, TOTAL [MOLES/VOLU ME] IN SERUM OR PLASMA 26 meq/L 20 - 30 05/30 Specimen Type: SERUM No comment entered. Ordering Provider: KERI OROSCO Report Released Date/Time: May 23, 2023 03:18 PM Reporting Lab: [facility] [address] [address] Performing Lab: [facility] [address] [facility] BASIC METABOLIC PANEL (fasting) CREATININE [MASS/VOLUM E] IN SERUM OR PLASMA 1.13 mg/dL 0.50 - 1.40 05/30 Specimen Type: SERUM No comment entered. Ordering Provider: KERI OROSCO Report Released Date/Time: May 23, 2023 03:18 PM Reporting Lab: [facility] [address] [address] Performing Lab: [facility] [address] [facility] BASIC METABOLIC PANEL (fasting) GLOMERULAR FILTRATION RATE/1.73 SQ M.PREDICTED [VOLUME RATE/AREA] IN SERUM, PLASMA OR BLOOD BY CREATININE- BASED FORMULA (CKD-EPI 2020) 67 mL/min 60 05/30 Specimen Type: SERUM No comment entered. Ordering Provider: KERI OROSCO Report Released Date/Time: May 23, 2023 03:18 PM Reporting Lab: [facility] [address] Performing Lab: [facility] [place] [facility] [address] [facility] [address] [facility] [place] [facility] LIVER FUNCTION PROTEIN [MASS/VOLUM E] IN SERUM OR PLASMA 7.4 g/dL 6.0 - 8.3 05/30 Specimen Type: SERUM No comment entered. Ordering Provider: KERI OROSCO Report Released Date/Time: May 23, 2023 03:18 PM Reporting Lab: [facility] [place] [facility] [address] [facility] [address] Performing Lab: [facility] [place] [facility] [address] [facility] [address] [facility] [place] [facility] LIVER FUNCTION ALBUMIN [MASS/VOLUM E] IN SERUM OR PLASMA 3.8 g/dL 3.5 - 5.0 05/30 Specimen Type: SERUM No comment entered. Ordering Provider: KERI OROSCO Report Released Date/Time: May 23, 2023 03:18 PM Reporting Lab: [facility] [address] [facility] [address] Performing Lab: [facility] [address] [facility] [address] [facility] LIVER FUNCTION ALKALINE PHOSPHATASE [ENZYMATIC ACTIVITY/VO LUME] IN SERUM OR PLASMA 59 U/L 40 - 150 05/30 Specimen Type: SERUM No comment entered. Ordering Provider: KERI OROSCO Report Released Date/Time: May 23, 2023 03:18 PM Reporting Lab: [facility] [address] [facility] [address] Performing Lab: [facility] [address] [facility] [address] [facility] LIVER FUNCTION ASPARTATE AMINOTRANSF ERASE [ENZYMATIC ACTIVITY/VO LUME] IN SERUM OR PLASMA 22 U/L 5 - 34 05/30 Specimen Type: SERUM No comment entered. Ordering Provider: KERI OROSCO Report Released Date/Time: May 23, 2023 03:18 PM Reporting Lab: [facility] [address] [facility] [address] Performing Lab: [facility] [address] [facility] [address] [facility] LIVER FUNCTION ALANINE AMINOTRANSF ERASE [ENZYMATIC ACTIVITY/VO LUME] IN SERUM OR PLASMA 19 U/L 05/30 Specimen Type: SERUM No comment entered. Ordering Provider: KERI OROSCO Report Released Date/Time: May 23, 2023 03:18 PM Reporting Lab: [facility] [address] [facility] [address] Performing Lab: [facility] [address] [facility] [address] [facility] LIVER FUNCTION BILIRUBIN.T OTAL [MASS/VOLUM E] IN SERUM OR PLASMA 0.6 mg/dL 0.2 - 1.2 05/30 Specimen Type: SERUM No comment entered. Ordering Provider: KERI OROSCO Report Released Date/Time: May 23, 2023 03:18 PM Reporting Lab: [facility] [address] [facility] [address] Performing Lab: [facility] [address] [facility] [address] [facility] Vital Signs Combined list of inpatient and outpatient Vital Signs from Department of Defense and Veterans Affairs, ranging from 12 months to all on record, depending upon the facility. Vital Sign Value Date Comments Source SYSTOLIC BLOOD PRESSURE 147 06/08/20 24 08:20:04 [facility] DIASTOLIC BLOOD PRESSURE [id number] 024 08:20:04 [facility] PULSE OXIMETRY 99 06/08/2024 08:20:04 [facility] [...] months. 2) Encounters from the Department of [facility] facilities going back up to 280 months. Location Location Details Encounter Type Encounter Number Reason For Visit Attending Provider ADM Date DC Date Status Disposition Source [facility] Outpatient Encounter [id number] 05/08 [facility]counter [id number] 05/29 [facility] Out[facility] Encounter [id number] 06/10 [facility] OFFICE O/P EST LOW 20-29 MIN [id number] Diagnos is: ICD-10- CM I10 Essenti al (primar y) hyperte nsion<b r/> BRYCE OROSCO MMED JAWED 06/10 [facility] Encounter [id number] 07/19 [facility] Out[facility] Encounter [id number] 08/08 [facility] OFF/OP EST MAY X REQ PHY/QHP [id number] Diagnos is: ICD-10- CM Z23 Encount er for immuniz ation<b r/> RA KATIE LOFTON 03/12 [facility] Outpatient Encounter [id number] 05/28 [facility] Outpatient Encounter [id number] 1.06/08 [facility] OFFICE O/P EST MOD 30 MIN [id number] 1. Diagnos is: ICD-10- CM Z77.29 Contact with and exposur e to other hazardo us substan eitan<br/ > MICHAELTI NA 06/08 [facility] Social History Combined list of available smoking, [...] QUIT TOBACCO USE 1-7 YEARS AGO 06/13/2016 [facility] Advance Directives List of completed, amended, or rescinded Advance Directives on record at Department of [facility] facilities. An actual copy of the Directive is not included. Date Advance Directive Provider Source 06/16/2017 ADVANCE DIRECTIVE SUNNY TRUONG [facility]
== END 2024-07-30 09:50 | disposition home or self-care (01) ==
PROVIDERS: PCP Internal Medicine; Visit Provider Nurse Practitioner Family
DX: R55 Syncope and collapse (principal); I49.3 Ventricular premature depolarization; I10 Essential (primary) hypertension; Z09 Encounter for follow-up examination after completed treatment for conditions other than malignant neoplasm
CPT/HCPCS: 99214; G2211

== ENCOUNTER → 2024-07-30 09:12 | Outpatient (BNVA) | payer MEDICARE, SELFPAY | PROVIDERS: PCP Internal Medicine; Visit Provider Nurse Practitioner Family | DX: Z09 Encounter for follow-up examination after completed treatment for conditions other than malignant neoplasm (principal); I49.3 Ventricular premature depolarization; R55 Syncope and collapse; I10 Essential (primary) hypertension | CPT/HCPCS: 99212 ==

== ENCOUNTER → 2024-08-12 08:11 | Outpatient (REF) | payer MEDICARE, SELFPAY ==
--- NOTE | 2024-08-12 08:14 | CA_ITS ---
Acquisition Time: 2024-08-12 08:18:30 Total Exercise Time: 00:05:56 Test Indications: NSVT, PVCS Medications: SEE H&P Protocol: SHANA Max HR: 144 BPM 100% of Pred: 143 BPM Max BP: 180/60 mmHG Max Work Load: 7.0 METS Exercise Stress Test with exercise 5 mins 56 secs of Shana Protocol, achieving 100% MPHR, without any anginal symptoms, with isolated PVCs, with normotensive response with exercise. Without EKG chnages meeting criteria for ischemia. Test reviewed with Dr. Ayala. Referred By: Shira Winston Electronically Signed By: Ariel Aponte
--- OUTSIDE RECORDS SUMMARY | 2024-08-12 08:20 | XMS_ITS ---
Author Organization [facility] Address [address] [place] [address] Care Team Providers Care Sanitation Officer Name Role Phone Layton ROGERS, Isabella Primary Care Provider Alek Carrero Jr, Avery Unavailable REASON FOR VISIT pathology Encounters Encounter Location Date Provider Diagnosis [facility] [address] [place] [id number] 07/31/2023 Avery Carrero Jr PLAN OF TREATMENT No Information
--- OUTSIDE RECORDS SUMMARY | 2024-08-12 08:20 | XMS_ITS | Patient Health Record ---
Author Organization [facility] Address [address] [place] [phone] Care Team Providers Care Maid Housekeeper Name Role Phone Isabella Traylor MD Primary Care Provider Avery Paulson Jr Unavailable ALLERGIES No Known Allergies REASON FOR REFERRAL No Information MEDICATIONS Medication SIG (Take, Route, Frequency, Duration) Notes Start Date End Date Status Aspirin 81 81 MG 1 tablet Orally Once a day for 30 day(s) Active Lisinopril 10mg Acti ve Fish Oil 1000 MG 1 capsule Orally Onc e a day for 30 day(s) Active MiraLax (colon prep) 17 GM/SCOOP mixed with Gatorade or Crystal Light Orally begin at 5:00 p.m. the day before the procedure for 1 day 05/14/2023 Active IMMUNIZATIONS Vaccine Route Administration Date Status Comme nts Influenza Unknown 03/29/2023 Administered SOCIAL HISTORY Sex Assigned At : Social History Observation Description Sex Assigned At Unknown PROBLEMS Problem Type ICD Code Onset Dates Problem Status W/U Status Risk SNOMED Code Notes Problem Colon cancer screening (Z12.11) Active confirmed Screening for neoplasm done (6263724864) Problem Long-term use of aspirin therapy (Z79.82) Active confirmed meterman current use of non-steroidal anti-inflammat ory drug (3080940772184 03) PLAN OF TREATMENT Future Test Test Name Order Date COLONOSCOPY 11/06/2012 COLONOSCOPY 05/14/2023 Insurance Providers Payer Name Payer Address Payer Phone Subscriber Number Group Number Insured Name Patient Relationship to Insured Coverage Start Date Coverage End Date MEDICARE OF [place] [address] [place] [address] [id number] EN[place] SIL[place] Self - patient is the insured MED[employer] ATTN CLAIMS [address] [place] [address] [phone] [id number] [employer]IL[employer] Self - patient is the insured MEDICAL (GENERAL) HISTORY Medical History History ICD Code colonoscopy 03/12, diverticulosis and hem orrhoids, ten-year followup Hypertension Spinal stenosis Dupuytren's contracture, left fifth fing er Elevated PSA Surgical History Surgery Date(Month/Year) back surgery 2021
--- OUTSIDE RECORDS SUMMARY | 2024-08-12 08:20 | XMS_ITS | Continuity of Care Document ---
Author Name [facility] Organization [facility] Care Team Providers Care Freelance Photographer Name Role Phone 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 It does not include entries that were removed or entered in error. Problem Status Onset Date Problem Type Date of Resolution Comments Source Benign essential hypertension [facility] Dupuytren's disease of palm [facility] [place] [facility] Exposure to potentially hazardous substance Active Condition Aug 20, 2023 Entered By: SONYA LOFTON Comment: Original TAMIKO Screen completed 06/10/22 [facility] [place] [facility] Obesity Active [facility] [place] [facility] Raised PSA Active Condition Jun 13 Entered By: CA OROSCO ED Comment: status post prostate biopsy in the past came out negative [facility] [place] [facility] Diagnosis: ICD-10-CM Z77.29 Contact with and exposure to other hazardous substances Active Diagnosis [facility] [place] [facility] Diagnosis: ICD-10-CM Z23 Encounter for immunization Active Diagnosis [facility] YAJAIRA DALEY [place] Diagnosis: ICD-10-CM I10 Essential (primary) hypertension Active Diagnosis [facility] Medications Combined list of outpatient medications from [...] DAY ORAL ACTIVE AWILDA OROSCO JAWGWENDOLYN [address] [facility] CHOLECALCIF WILMER [...] Site Reaction Lot Number CVX Code Drug Pumper Helper Status Comments Source INFLUENZA, HIGH-DOSE, TRIVALENT, PF 2023 SANDRO ESTRELLA LEFT DELTO ID [id number] 135 complet ed [facility] [place] DOSE 2 2020 207 complet ed MOD; [id number]; 1 [facility] COVID-19 (MODERNA), MRNA, LNP-S, PF, 100 MCG/0.5 ML DOSE 1 2020 207 complet ed MOD; [id number]; 1 [facility] [...] May 26, 2024 03:48 PM Reporting [facility]: [facility] [place] [facility] [address] [facility] [address] Performing [facility]: [facility] [address] [facility] [address] [facility] BASIC METABOLIC PANEL (non-fast ing) GLUCOSE [MASS/VOLUM E] IN SERUM OR PLASMA 92 mg/dL 65 - 100 06/01 Specimen Type: SERUM No comment entered. Ordering Provider: WENDY RODRIGUEZ Report Released Date/Time: May 26, 2024 03:48 PM Reporting Lab: [facility] [place] [facility] [address] [facility] [address] Performing Lab: [facility] [address] [facility] [address] [facility] BASIC METABOLIC PANEL (non-fast ing) SODIUM [MOLES/VOLU ME] IN SERUM OR PLASMA 139 mmol/L 135 - 145 06/01 Specimen Type: SERUM No comment entered. Ordering Provider: WENDY RODRIGUEZ Report Released Date/Time: May 26, 2024 03:48 PM Reporting Lab: [facility] [address] [address] Performing Lab: [facility] [address] [address] [facility] BASIC METABOLIC PANEL (non-fast ing) POTASSIUM [MOLES/VOLU ME] IN SERUM OR PLASMA 4.5 mmol/L 3.5 - 5.0 06/01 Specimen Type: SERUM No comment entered. Ordering Provider: WENDY RODRIGUEZ Report Released Date/Time: May 26, 2024 03:48 PM Reporting Lab: [address] [address] Performing Lab: [facility] [address] [address] [facility] BASIC METABOLIC PANEL (non-fast ing) CHLORIDE [MOLES/VOLU ME] IN SERUM OR PLASMA 103 mmol/L 100 - 110 06/01 Specimen Type: SERUM No comment entered. Ordering Provider: WENDY RODRIGUEZ Report Released Date/Time: May 26, 2024 03:48 PM Reporting Lab: [facility] [address] [address] Performing Lab: [facility] [address] [address] [facility] BASIC METABOLIC PANEL (non-fast ing) CARBON DIOXIDE, TOTAL [MOLES/VOLU ME] IN SERUM OR PLASMA 25 meq/L 20 - 30 06/01 Specimen Type: SERUM No comment entered. Ordering Provider: WENDY RODRIGUEZ Report Released Date/Time: May 26, 2024 03:48 PM Reporting Lab: [address] [address] Performing Lab: [facility] [address] [facility] [facility] [address] [facility] BASIC METABOLIC PANEL (non-fast ing) CREATININE [MASS/VOLUM E] IN SERUM OR PLASMA 1.22 mg/dL 0.50 - 1.40 06/01 Specimen Type: SERUM No comment entered. Ordering Provider: WENDY RODRIGUEZ Report Released Date/Time: May 26, 2024 03:48 PM Reporting Lab: [facility] [address] [facility] [facility] [address] Performing Lab: [address] [address] [facility] BASIC METABOLIC PANEL (non-fast ing) GLOMERULAR FILTRATION RATE/1.73 SQ M.PREDICTED [VOLUME RATE/AREA] IN SERUM, PLASMA OR BLOOD BY CREATININE- BASED FORMULA (CKD-EPI 2020) 61 mL/min 60 06/01 Specimen Type: SERUM No comment entered. Ordering Provider: WENDY RODRIGUEZ Report Released Date/Time: May 26, 2024 03:48 PM Reporting Lab: [address] [address] Performing Lab: [address] [address] [facility] LIPID PANEL, NON FASTING CHOLESTEROL [MASS/VOLUM E] IN SERUM OR PLASMA 174 mg/dL 06/01 Specimen Type: SERUM No comment entered. Ordering Provider: WENDY RODRIGUEZ Report Released Date/Time: May 26, 2024 03:48 PM Reporting Lab: [address] [address] Performing Lab: [address] [address] [facility] LIPID PANEL, NON FASTING TRIGLYCERID E [MASS/VOLUM E] IN SERUM OR PLASMA 156 mg/dL 0 - 150 06/01 H Specimen Type: SERUM No comment entered. Ordering Provider: WENDY RODRIGUEZ Report Released Date/Time: May 26, 2024 03:48 PM Reporting Lab: [facility] [place] [facility] [address] [facility] [facility] [address] Performing Lab: [facility] [place] [facility] [address] [facility] [facility] [address] [facility] [place] [facility] LIPID PANEL, NON FASTING CHOLESTEROL IN LDL [MASS/VOLUM E] IN SERUM OR PLASMA BY CALCULATION 101 mg/dL 0 - 129 06/01 Specimen Type: SERUM No comment entered. Ordering Provider: WENDY RODRIGUEZ Report Released Date/Time: May 26, 2024 03:48 PM Reporting Lab: [facility] [place] [facility] [address] [facility] [address] Performing Lab: [facility] [place] [address] [address] [facility] LIPID PANEL, NON FASTING CHOLESTEROL .TOTAL/CHOL ESTEROL IN HDL [MASS RATIO] IN SERUM OR PLASMA 4.1 06/01 Specimen Type: SERUM No comment entered. Ordering Provider: WENDY RODRIGUEZ Report Released Date/Time: May 26, 2024 03:48 PM Reporting Lab: [facility] [place] [facility] [address] [facility] [address] Performing Lab: [facility] [place] [address] [address] [facility] LIPID PANEL, NON FASTING CHOLESTEROL IN HDL [MASS/VOLUM E] IN SERUM OR PLASMA 42 mg/dL 40 - 60 06/01 Specimen Type: SERUM No comment entered. Ordering Provider: WENDY RODRIGUEZ Report Released Date/Time: May 26, 2024 03:48 PM Reporting Lab: [facility] [place] [facility] [address] [facility] [facility] [address] Performing Lab: [facility] [place] [address] [address] [facility] CBC AND DIFF (AUTO) LEUKOCYTES [#/VOLUME] IN BLOOD BY AUTOMATED COUNT 5.46 10*3/u L 4.50 - 11.00 05/30 Specimen Type: BLOOD No comment entered. Ordering Provider: KERI OROSCO Report Released Date/Time: May 23, 2023 03:18 PM Reporting Lab: [facility] [place] [facility] [address] [facility] [facility] [address] Performing Lab: [facility] [place] [facility] [address] [facility] [facility] [address] [facility] [place] [facility] CBC AND DIFF (AUTO) ERYTHROCYTE S [#/VOLUME] IN BLOOD BY AUTOMATED COUNT 4.48 10*6/u L 4.23 - 5.66 05/30 Specimen Type: BLOOD No comment entered. Ordering Provider: KERI OROSCO Report Released Date/Time: May 23, 2023 03:18 PM Reporting Lab: [facility] [place] [address] [address] Performing Lab: [facility] [place] [facility] [address] [facility] [address] [facility] [place] [facility] CBC AND DIFF (AUTO) HEMOGLOBIN [MASS/VOLUM E] IN BLOOD 14.1 g/dL 12.8 - 17 05/30 Specimen Type: BLOOD No comment entered. Ordering Provider: KERI OROSCO Report Released Date/Time: May 23, 2023 03:18 PM Reporting Lab: [facility] [place] [address] [address] Performing Lab: [facility] [place] [facility] [address] [facility] [facility] [address] [facility] [place] [facility] CBC AND DIFF (AUTO) HEMATOCRIT [VOLUME FRACTION] OF BLOOD BY AUTOMATED COUNT 41.9 39.2 - 50.4 05/30 Specimen Type: BLOOD No comment entered. Ordering Provider: KERI OROSCO Report Released Date/Time: May 23, 2023 03:18 PM Reporting Lab: [facility] [place] [facility] [address] [facility] [address] Performing Lab: [facility] [place] [address] [address] [facility] CBC AND DIFF (AUTO) MCV [ENTITIC VOLUME] BY AUTOMATED COUNT 93.5 fL 82 - 99 05/30 Specimen Type: BLOOD No comment entered. Ordering Provider: KERI OROSCO Report Released Date/Time: May 23, 2023 03:18 PM Reporting Lab: [facility] [place] [facility] [address] [facility] [address] Performing Lab: [facility] [place] [facility] [address] [facility] [address] [facility] [place] [facility] CBC AND DIFF (AUTO) MCHC [MASS/VOLUM E] BY AUTOMATED COUNT 33.7 g/dL 30.8 - 35.1 05/30 Specimen Type: BLOOD No comment entered. Ordering Provider: KERI OROSCO Report Released Date/Time: May 23, 2023 03:18 PM Reporting Lab: [facility] [place] [facility] [address] [facility] [address] Performing Lab: [facility] [place] [facility] [address] [facility] [address] [facility] [place] [facility] CBC AND DIFF (AUTO) PLATELETS [#/VOLUME] IN BLOOD BY AUTOMATED COUNT 309 10*3/u L 140 - 360 05/30 Specimen Type: BLOOD No comment entered. Ordering Provider: KERI OROSCO Report Released Date/Time: May 23, 2023 03:18 PM Reporting Lab: [facility] [place] [facility] [address] [facility] [address] Performing Lab: [facility] [place] [facility] [address] [facility] [address] [facility] [place] [facility] CBC AND DIFF (AUTO) ERYTHROCYTE DISTRIBUTIO N WIDTH [RATIO] BY AUTOMATED COUNT 12.5 12.0 - 16.0 05/30 Specimen Type: BLOOD No comment entered. Ordering Provider: KERI OROSCO Report Released Date/Time: May 23, 2023 03:18 PM Reporting Lab: [facility] [place] [facility] [address] [facility] [address] Performing Lab: [facility] [place] [facility] [address] [facility] [facility] [address] [facility] [place] [facility] CBC AND DIFF (AUTO) MONOCYTES [#/VOLUME] IN BLOOD BY AUTOMATED COUNT 0.55 10*3/u L 0.30 - 1.10 05/30 Specimen Type: BLOOD No comment entered. Ordering Provider: KERI OROSCO Report Released Date/Time: May 23, 2023 03:18 PM Reporting Lab: [facility] [place] [facility] [address] [facility] [address] Performing Lab: [facility] [place] [facility] [address] [facility] [facility] [address] [facility] [place] [facility] CBC AND DIFF (AUTO) MCH [ENTITIC MASS] BY AUTOMATED COUNT 31.5 pg 26.2 - 32.6 05/30 Specimen Type: BLOOD No comment entered. Ordering Provider: KERI OROSCO Report Released Date/Time: May 23, 2023 03:18 PM Reporting Lab: [facility] [place] [facility] [address] [facility] [address] Performing Lab: [facility] [place] [facility] [address] [facility] [facility] [address] [facility] [place] [facility] CBC AND DIFF (AUTO) NEUTROPHILS /100 LEUKOCYTES IN BLOOD BY AUTOMATED COUNT 39.4 43.7 - 75.8 05/30 L Specimen Type: BLOOD No comment entered. Ordering Provider: KERI OROSCO Report Released Date/Time: May 23, 2023 03:18 PM Reporting Lab: [facility] [place] [facility] [address] [facility] [address] Performing Lab: [facility] [place] [address] [address] [facility] [place] [facility] CBC AND DIFF (AUTO) LYMPHOCYTES /100 LEUKOCYTES IN BLOOD BY AUTOMATED COUNT 44.5 14.0 - 42.3 05/30 H Specimen Type: BLOOD No comment entered. Ordering Provider: KERI OROSCO Report Released Date/Time: May 23, 2023 03:18 PM Reporting Lab: [facility] [place] [facility] [address] [facility] [address] Performing Lab: [facility] [place] [facility] [address] [facility] [address] [facility] [place] [facility] CBC AND DIFF (AUTO) MONOCYTES/1 00 LEUKOCYTES IN BLOOD BY AUTOMATED COUNT 10.1 5.1 - 13.7 05/30 Specimen Type: BLOOD No comment entered. Ordering Provider: KERI OROSCO [employer] Report Released Date/Time: May 23, 2023 03:18 PM Reporting Lab: [facility] [place] [facility] [address] [facility] [address] Performing Lab: [facility] [place] [facility] [address] [facility] [address] [facility] [place] [facility] CBC AND DIFF (AUTO) EOSINOPHILS /100 LEUKOCYTES IN BLOOD BY AUTOMATED COUNT 4.2 0.4 - 6.8 05/30 Specimen Type: BLOOD No comment entered. Ordering Provider: KERI OROSCO [employer] Report Released Date/Time: May 23, 2023 03:18 PM Reporting Lab: [facility] [place] [facility] [address] [facility] [address] Performing Lab: [facility] [place] [facility] [address] [facility] [address] [facility] [place] [facility] CBC AND DIFF (AUTO) BASOPHILS/1 00 LEUKOCYTES IN BLOOD BY AUTOMATED COUNT 1.6 0.1 - 2.0 05/30 Specimen Type: BLOOD No comment entered. Ordering Provider: KERI OROSCO [employer] Report Released Date/Time: May 23, 2023 03:18 PM Reporting Lab: [facility] [place] [facility] [address] [facility] [address] Performing Lab: [facility] [place] [facility] [address] [facility] [address] [facility] [place] CBC AND DIFF (AUTO) NEUTROPHILS [#/VOLUME] IN BLOOD BY AUTOMATED COUNT 2.15 10*3/u L 2.20 - 7.60 05/30 L Specimen Type: BLOOD No comment entered. Ordering Provider: KERI OROSCO Report Released Date/Time: May 23, 2023 03:18 PM Reporting Lab: [facility] [place] [facility] [address] [facility] [address] Performing Lab: [facility] [place] [address] [address] [facility] [place] CBC AND DIFF (AUTO) LYMPHOCYTES [#/VOLUME] IN BLOOD BY AUTOMATED COUNT 2.43 10*3/u L 1.00 - 3.20 05/30 Specimen Type: BLOOD No comment entered. Ordering Provider: KERI OROSCO Report Released Date/Time: May 23, 2023 03:18 PM Reporting Lab: [facility] [place] [address] [address] Performing Lab: [facility] [place] [address] [address] [facility] [place] [facility] CBC AND DIFF (AUTO) EOSINOPHILS [#/VOLUME] IN BLOOD BY AUTOMATED COUNT 0.23 10*3/u L 0.03 - 0.44 05/30 Specimen Type: BLOOD No comment entered. Ordering Provider: KERI OROSCO Report Released Date/Time: May 23, 2023 03:18 PM Reporting Lab: [facility] [place] [address] [address] Performing Lab: [facility] [place] [address] [address] [facility] [place] CBC AND DIFF (AUTO) BASOPHILS [#/VOLUME] IN BLOOD BY AUTOMATED COUNT 0.09 10*3/u L 0.01 - 0.13 05/30 Specimen Type: BLOOD No comment entered. Ordering Provider: KERI OROSCO Report Released Date/Time: May 23, 2023 03:18 PM Reporting Lab: [facility] [place] [address] [address] Performing Lab: [facility] [place] [facility] [address] [facility] [address] [facility] [place] [facility] CBC AND DIFF (AUTO) IMMATURE GRANULOCYTE S/100 LEUKOCYTES IN BLOOD BY AUTOMATED COUNT 0.2 0.0 - 0.7 05/30 Specimen Type: BLOOD No comment entered. Ordering Provider: KERI OROSCO Report Released Date/Time: May 23, 2023 03:18 PM Reporting Lab: [facility] [place] [facility] [address] [facility] [address] Performing Lab: [facility] [place] [facility] [address] [facility] [address] [facility] [place] [facility] CBC AND DIFF (AUTO) IMMATURE GRANULOCYTE S [#/VOLUME] IN BLOOD 0.01 10*3/u L 0.00 - 0.06 05/30 Specimen Type: BLOOD No comment entered. Ordering Provider: KERI OROSCO Report Released Date/Time: May 23, 2023 03:18 PM Reporting Lab: [facility] [place] [facility] [address] [facility] [address] Performing Lab: [facility] [place] [facility] [address] [facility] [address] [facility] [place] [facility] LIPID PANEL FASTING CHOLESTEROL [MASS/VOLUM E] IN SERUM OR PLASMA 158 mg/dL 05/30 Specimen Type: SERUM No comment entered. Ordering Provider: KERI OROSCO Report Released Date/Time: May 23, 2023 03:18 PM Reporting Lab: [facility] [place] [facility] [address] [facility] [address] Performing Lab: [facility] [place] [facility] [address] [facility] [address] [facility] [place] [facility] LIPID PANEL FASTING TRIGLYCERID E [MASS/VOLUM E] IN SERUM OR PLASMA 100 mg/dL 0 - 150 05/30 Specimen Type: SERUM No comment entered. Ordering Provider: KERI OROSCO Report Released Date/Time: May 23, 2023 03:18 PM Reporting Lab: [facility] [place] [facility] [address] [facility] [address] Performing Lab: [facility] [place] [facility] [address] [facility] [address] [facility] [place] [facility] LIPID PANEL FASTING CHOLESTEROL IN LDL [MASS/VOLUM E] IN SERUM OR PLASMA BY CALCULATION 96 mg/dL 0 - 129 05/30 Specimen Type: SERUM No comment entered. Ordering Provider: KERI OROSCO Report Released Date/Time: May 23, 2023 03:18 PM Reporting Lab: [facility] [place] [facility] [address] [facility] [address] Performing Lab: [facility] [place] [facility] [address] [facility] [address] [facility] [place] [facility] LIPID PANEL FASTING CHOLESTEROL .TOTAL/CHOL ESTEROL IN HDL [MASS RATIO] IN SERUM OR PLASMA 3.8 05/30 Specimen Type: SERUM No comment entered. Ordering Provider: KERI OROSCO Report Released Date/Time: May 23, 2023 03:18 PM Reporting Lab: [facility] [place] [facility] [address] [facility] [address] Performing Lab: [facility] [place] [facility] [address] [facility] [address] [facility] [place] [facility] LIPID PANEL FASTING CHOLESTEROL IN HDL [MASS/VOLUM E] IN SERUM OR PLASMA 42 mg/dL 40 - 60 05/30 Specimen Type: SERUM No comment entered. Ordering Provider: KERI OROSCO Report Released Date/Time: May 23, 2023 03:18 PM Reporting Lab: [facility] [place] [facility] [address] [facility] [address] Performing Lab: [facility] [place] [place] [facility] [address] [facility] [address] [facility] [place] [facility] BASIC METABOLIC PANEL (fasting) UREA NITROGEN [MASS/VOLUM E] IN SERUM OR PLASMA 14 mg/dL 7 - 25 05/30 Specimen Type: SERUM No comment entered. Ordering Provider: AHMED,MOHAM MED JAWED Report Released Date/Time: May 23, 2023 03:18 PM Reporting Lab: [facility] [place] [facility] [address] [facility] [address] Performing Lab: [facility] [place] [facility] [address] [facility] [address] [facility] [place] [facility] BASIC METABOLIC PANEL (fasting) GLUCOSE [MASS/VOLUM E] IN SERUM OR PLASMA 96 mg/dL 65 - 100 05/30 Specimen Type: SERUM No comment entered. Ordering Provider: KERI OROSCO [employer] Report Released Date/Time: May 23, 2023 03:18 PM Reporting Lab: [facility] [place] [facility] [address] [facility] [address] Performing Lab: [facility] [place] [facility] [address] [facility] [address] [facility] [place] [facility] BASIC METABOLIC PANEL (fasting) SODIUM [MOLES/VOLU ME] IN SERUM OR PLASMA 138 mmol/L 135 - 145 05/30 Specimen Type: SERUM No comment entered. Ordering Provider: [employer]I [employer]CO[employer] Report Released Date/Time: May 23, 2023 03:18 PM Reporting Lab: [facility] [place] [facility] [address] [facility] [address] Performing Lab: [facility] [place] [facility] [address] [facility] [address] [facility] [place] [facility] BASIC METABOLIC PANEL (fasting) POTASSIUM [MOLES/VOLU ME] IN SERUM OR PLASMA 4.3 mmol/L 3.5 - 5.0 05/30 Specimen Type: SERUM No comment entered. Ordering Provider: KERI OROSCO [employer] Report Released Date/Time: May 23, 2023 03:18 PM Reporting Lab: [facility] [place] [facility] [address] [facility] [address] Performing Lab: [facility] [place] [facility] [address] [facility] [address] [facility] [place] [facility] BASIC METABOLIC PANEL (fasting) CHLORIDE [MOLES/VOLU ME] IN SERUM OR PLASMA 104 mmol/L 100 - 110 12/01 /2023 Specimen Type: SERUM No comment entered. Ordering Provider: KERI OROSCO Report Released Date/Time: May 23, 2023 03:18 PM Reporting Lab: [place] [facility] [place] [place] [address] [address] Performing Lab: [facility] W[facility] [address] [address] [facility] BASIC METABOLIC PANEL (fasting) CARBON DIOXIDE, TOTAL [MOLES/VOLU ME] IN SERUM OR PLASMA 26 meq/L 20 - 30 05/30 Specimen Type: SERUM No comment entered. Ordering Provider: KERI OROSCO Report Released Date/Time: May 23, 2023 03:18 PM Reporting Lab: [facility] [address] [address] Performing Lab: [facility] [address] [facility] BASIC METABOLIC PANEL (fasting) CREATININE [MASS/VOLUM E] IN SERUM OR PLASMA 1.13 mg/dL 0.50 - 1.40 05/30 Specimen Type: SERUM No comment entered. Ordering Provider: KERI OROSCO Report Released Date/Time: May 23, 2023 03:18 PM Reporting Lab: [facility] [address] [address] Performing Lab: [facility] [address] [facility] [place] BASIC METABOLIC PANEL (fasting) GLOMERULAR FILTRATION RATE/1.73 SQ M.PREDICTED [VOLUME RATE/AREA] IN SERUM, PLASMA OR BLOOD BY CREATININE- BASED FORMULA (CKD-EPI 2020) 67 mL/min 60 05/30 Specimen Type: SERUM No comment entered. Ordering Provider: KERI OROSCO Report Released Date/Time: May 23, 2023 03:18 PM Reporting Lab: [facility] [address] Performing Lab: [facility] [place] [facility] [address] [facility] [address] [facility] [place] [facility] LIVER FUNCTION PROTEIN [MASS/VOLUM E] IN SERUM OR PLASMA 7.4 g/dL 6.0 - 8.3 05/30 Specimen Type: SERUM No comment entered. Ordering Provider: KERI OROSCO Report Released Date/Time: May 23, 2023 03:18 PM Reporting Lab: [facility] [address] [facility] [facility] [address] Performing Lab: [facility] [address] [facility] [address] [facility] LIVER FUNCTION ALBUMIN [MASS/VOLUM E] IN SERUM OR PLASMA 3.8 g/dL 3.5 - 5.0 05/30 Specimen Type: SERUM No comment entered. Ordering Provider: KERI OROSCO Report Released Date/Time: May 23, 2023 03:18 PM Reporting Lab: [facility] [address] [facility] [facility] [address] Performing Lab: [facility] [address] [facility] [facility] [address] [facility] LIVER FUNCTION ALKALINE PHOSPHATASE [ENZYMATIC ACTIVITY/VO LUME] IN SERUM OR PLASMA 59 U/L 40 - 150 05/30 Specimen Type: SERUM No comment entered. Ordering Provider: KERI OROSCO Report Released Date/Time: May 23, 2023 03:18 PM Reporting Lab: [facility] [address] [facility] [address] Performing Lab: [facility] [address] [facility] [facility] [address] [facility] LIVER FUNCTION ASPARTATE AMINOTRANSF ERASE [ENZYMATIC ACTIVITY/VO LUME] IN SERUM OR PLASMA 22 U/L 5 - 34 05/30 Specimen Type: SERUM No comment entered. Ordering Provider: KERI OROSCO Report Released Date/Time: May 23, 2023 03:18 PM Reporting Lab: [facility] [address] [facility] [address] Performing Lab: [facility] [address] [facility] [address] [facility] LIVER FUNCTION ALANINE AMINOTRANSF ERASE [ENZYMATIC ACTIVITY/VO LUME] IN SERUM OR PLASMA 19 U/L 05/30 Specimen Type: SERUM No comment entered. Ordering Provider: KERI OROSCO Report Released Date/Time: May 23, 2023 03:18 PM Reporting Lab: [facility] [address] [facility] [address] Performing Lab: [facility] [address] [facility] [facility] [address] [facility] LIVER FUNCTION BILIRUBIN.T OTAL [MASS/VOLUM E] IN SERUM OR PLASMA 0.6 mg/dL 0.2 - 1.2 05/30 Specimen Type: SERUM No comment entered. Ordering Provider: KERI OROSCO Report Released Date/Time: May 23, 2023 03:18 PM Reporting Lab: [facility] [address] [facility] [address] Performing Lab: [facility] [address] [facility] [address] [facility] Vital Signs Combined list of inpatient and outpatient Vital Signs from Department of Defense and Veterans Affairs, ranging from 12 months to all on record, depending upon the facility. Vital Sign Value Date Comments Source SYSTOLIC BLOOD PRESSURE 147 06/08/20 24 08:20:04 [facility] DIASTOLIC BLOOD PRESSURE 76 024 08:20:04 [facility] PULSE OXIMETRY 99 06/08/2024 08:20:04 [facility] WEIGHT 226 06/08/2024 08:20:04 [facility] BMI 31 kg/m2 06/08/2024 08:20:04 [facility] PAIN 0 06/08/2024 08:20:04 [facility] TEMPERATURE 97.6 06/08/2024 08:20:04 [facility] PULSE 68 06/08/2024 08:20:04 [facility] RESPIRATION 16 06/08/2024 08:20:04 [facility] Encounters Combined list of: 1) Encounters from Department of Veterans Affairs facilities going backup to the last 18 months, not all VA inpatient encounters are included; 2) Encounters from the Department of Defense facilities going backup to 280 months. Location Location Details Encounter Type Encounter Number Reason For Visit Attending Provider ADM Date DC Date Status Disposition Source [facility] Out[facility] Encounter [id number] 05/08 [facility] Encounter [id number] 05/29 [facility] Out[facility] Encounter [id number] 06/10 [facility] OFFICE O/P EST LOW 20-29 MIN [id number] Diagnos is: ICD-10- CM I10 Essenti al (primar y) hyperte nsion BRYCE OROSCO MMED JAWED 06/10 [facility] Encounter [id number] 07/19 [facility] Out[facility] Encounter [id number] 08/08 [facility] OFF/OP EST MAY X REQ PHY/QHP [id number] Diagnos is: ICD-10- CM Z23 Encount er for immuniz RA KATIE Kerr 03/12 [facility] Outpatient Encounter [id number] 05/28 [facility] Outpatient Encounter [id number] 1.06/08 [facility] OFFICE O/P EST MOD 30 MIN [id number] 1. Diagnos is: ICD-10- CM Z77.29 Contact with and exposur e to other hazardo us substan eitan FURCOLO,TI NA 06/08 [facility] Social History Combined list of available smoking, tobacco, and other social history from Department of Defense and Veterans Affairs facilities. Social History Type Response Date Comment Sourc e Tobacco smoking status [facility] VA-TOBACCO NEVER USED CIGARETTES 06/08/2024 [facility] History of tobacco use VA-TOBACCO NEVER USED OTHER TYPE 06/08/2024 [facility] History of tobacco use VA-TOBACCO NEVER USED 06/10/2023 [facility] History of tobacco use VA-TOBACCO NEVER USED 06/10/2022 [facility] History of tobacco use VA-TOBACCO FORMER USER 06/11/2021 [facility] History of tobacco use VA-TOBACCO FORMER USER 06/02/2020 [facility] History of tobacco use VA-TOBACCO NEVER USED 06/04/2018 [facility] History of tobacco use QUIT TOBACCO USE > 7 YEARS AGO 05/14/2017 [facility] History of tobacco use QUIT TOBACCO USE 1-7 YEARS AGO 06/13/2016 [facility] Advance Directives List of completed, amended, or rescinded Advance Directives on record at Department of [facility] facilities. An actual copy of the Directive is not included. Date Advance Directive Provider Source 06/16/2017 ADVANCE DIRECTIVE SUNNY TRUONG [facility]
--- OUTSIDE RECORDS SUMMARY | 2024-08-12 08:20 | XMS_ITS ---
Author Organization [facility] Address [address] [place] [address] Care Team Providers Care Documentation Engineer Name Role Phone Layton ROGERS, Isabella Primary Care Provider Alek Carrero Jr, Avery Unavailable [phone] REASON FOR VISIT screening Encounters Encounter Location Date Provider Diagnosis [facility] [place] [address] [place] [id number] 07/22/2023 Avery Carrero Jr Encounter for screening colonoscopy Z12.11 and Colon polyps K63.5 ASSESSMENTS Encounter Date Diagnosis Assessment Notes Treatment Notes Treatment Clinical Notes 07/22/2023 Encounter for screening colonoscopy (ICD-10 - Z12.11) 07/22/2023 Colon polyps (ICD-10 - K63.5) PLAN OF TREATMENT No Information
--- OUTSIDE RECORDS SUMMARY | 2024-08-12 08:21 | XMS_ITS ---
Author Organization [facility] Address [address] [place] [address] Care Team Providers Care Computer Systems Design Analyst Name Role Phone Layton ROGERS, Isabella Primary Care Provider Avery Paulson Jr Unavailable ALLERGIES No Known Allergies REASON FOR VISIT Patient presents today for a recall colonoscopy MEDICATIONS Medication SIG (Take, Route, Frequency, Duration) [...] the procedure for 1 day 05/14/2023 Active SOCIAL HISTORY Tobacco Use: Social History Observation Description Date Details (start date - stop date) Never Smoker NA - NA Sex Assigned At : Social History Observation Description Sex Assigned At Unknown Tobacco Use/Smoking Question Answer Notes Patient is a nonsmoker Alcohol Screen Question Answer Notes Did you have a drink containing alcohol in the p ast year? 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-inflammat ory drug ([id number] 03) VITAL SIGNS BMI 28.63 kg/m2 05/14/2023 Blood pressure systolic 000 mm Hg 05/14/20 23 Blood pressure diastolic 00 mm Hg 11/15/2 023 Height 74 in 05/14/2023 Temperature 98.7 degrees Fahrenheit 05/14/20 23 Weight 223 lbs 05/14/2023 Encounters Encounter Location Date Provider Diagnosis [facility] [address] [place] [address] 05/14/2023 Avery Carrero Jr Colon cancer screening Z12.11 and Long-term use of aspirin therapy Z79.82 ASSESSMENTS Encounter Date Diagnosis Assessment Notes Treatment Notes Treatment Clinical Notes 05/14/2023 Colon cancer screening (ICD-10 - Z12.11) Colonoscopy material was printed 05/14/2023 Long-term use of aspirin therapy (ICD-10 - Z79.82) PLAN OF TREATMENT Medication Medication Name Sig Start Date Stop Date Notes MiraLax (colon prep) 17 GM/SCOOP mixed with Gatorade or Crystal Light Orally begin at 5:00 p.m. the day before the procedure for 1 day 05/14/2023 Treatment Notes Assessment Notes Colon cancer screening Colonoscopy mater ial was printed Future Test Test Name Order Date COLONOSCOPY 05/14/2023 Next Appt Details Follow Up: prn, Reason: Progress Notes * Examination Category Sub-Category Detail Notes General Examination GENERAL APPEARANCE: in no ac squaxin distress HEAD: normocephalic EYES: sclera non-icteric NECK/THYROID: no lymphadenopathy HEART: S1, S2 normal, no mu rmurs CHEST: normal shape and exp ansion LUNGS: clear to auscultatio n bilaterally ABDOMEN: soft, nontender, non distended, bowel sounds present, no organomegaly SKIN: anicteric EXTREMITIES: no clubbing, cyanosi s, or edema PSYCH: cognitive function i ntact ORAL CAVITY: mucosa moist
== END ==
LOC: HO.CARD 08:11
PROVIDERS: PCP Internal Medicine; Visit Provider Nurse Practitioner Family
DX: I49.3 Ventricular premature depolarization (principal)
CPT/HCPCS: 93017

== ENCOUNTER → 2024-08-12 08:14 | Outpatient (BNV) | payer MEDICARE, SELFPAY | PROVIDERS: PCP Internal Medicine | DX: I49.3 Ventricular premature depolarization (principal) | CPT/HCPCS: 93016; 93018 ==

== ENCOUNTER 2024-10-21 08:33 | Outpatient (AMB) | payer MEDICARE, SELFPAY ==
[2024-10-21 08:35] VITALS: BP 124/62; PULSE 81; BMI 29.9
--- NOTE | 2024-10-21 08:35 | A.OFFVIS_ITS ---
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 He was thought to have had orthostatic hypotension in the setting of viral illness. Today he reports he has been doing well since his last visit in June. He has had no issues with lightheaded, presyncope, syncope. No chest discomfort at rest or with activity. No shortness of breath, PND, orthopnea or edema. He does not notice heart palpitations. He has good activity tolerance and goes to the gym 5 times weekly, using treadmill and bike. He is now starting to play golf routinely. No history of heart disease but says it runs in his family. [facility] Medical History PVC (premature ventricular contraction) Essential hypertension HTN (hypertension) Dupuytren's contracture of left hand Hx of spinal stenosis Elevated PSA Dupuytren's contracture of right hand Surgical History Hx of hand surgery History of back surgery Hx of colonoscopy Family History Father CAD (coronary artery disease) Brother Prostate cancer Social History Household Members: None Housing: House Do you presently have visiting nurse or other home services: No Alcohol intake: never Patient Tobacco Use Status: Never used Tobacco e-Cigarette/Vaping Use: Never Used Second Hand Smoke Exposure: No Advance Directives Date on File: 09/18/22 service: Yes Current occupational status: employed Cognitive needs: No Hearing needs: No Vision needs: No Review of Systems Const All systems reviewed & are unremarkable except as noted in HPI and below ENT Denies dizziness Card Denies chest pain, Denies chest pain at rest, Denies chest pain with activity, Denies rapid heart rate, Denies pedal edema, Denies edema, Denies leg edema, Denies lightheadedness, Denies palpitations, Denies dyspnea, Denies dyspnea on exertion and Denies orthopnea Resp Denies cough, Denies dyspnea and Denies dyspnea on exertion GI Denies hematochezia and Denies change in stool character Musc Denies abnormal gait, Denies limited range of motion, Denies muscle cramps, Denies muscle weakness, Denies numbness, Denies radiating pain into limb, Denies stiffness and Denies tingling Neuro Denies abnormal gait, Denies dizziness, Denies numbness and Denies tingling Endo Denies palpitations Physical Exam Vital Signs: Last Vital Signs Pulse 81 10/21/24 08:35 BP 124/62 10/21/24 08:35 BMI result Body Mass Index 29.9 Const General: cooperative, healthy appearing, comfortable and no acute distress Orientation/consciousness: patient oriented x3 Neck Neck: Yes normal visual inspection and Yes no JVD Resp Effort & Inspection: normal respiratory effort Auscultation: clear to auscultation bilaterally, no crackles, no rales, no rhonchi and no wheezes Cardio Rate: regular rate Rhythm: regular rhythm Heart sounds: S1 normal heart sound present, S2 normal heart sound present, no gallops, no murmurs and no rubs Neuro General: patient oriented x3 Extrem General: Yes normal to inspection, No no pedal edema and No calf tenderness Psych Appearance: grossly normal Mental Status: mental status grossly normal Speech and movement: Normal speech and movement present Assessment & Plan Assessment & Plan (1) Syncope: Code(s): R55 - Syncope and collapse Category: Medical Plan: Recent syncopal event in the setting of viral illness and standing in line, which was thought to be orthostatic in nature. An echocardiogram done while inpatient did show EF 60-65%, no valve abnormalities and no overt regional wall motion abnormalities. Study quality was fair. A repeat limited study done with contrast as an outpatient did show EF 50-55%. A Holter monitor was done on 07/21/2024 for 3 days showing sinus rhythm with average heart rate 80, occasional PVCs, PACs with 3 brief SVT runs, longest 25 beats. Test results reviewed with him in detail. He has not had any recurrent syncopal events. Reviewed the need for good hydration, sit/lay down if he becomes lightheaded. Continue activity as tolerated. Cardiology follow-up in 1 year, sooner if needed (2) Essential hypertension: Code(s): I10 - Essential (primary) hypertension Category: Medical Plan: Blood pressure goal less than 130/80. Normal range today. No med changes made. (3) SVT (supraventricular tachycardia): Code(s): I47.10 - Supraventricular tachycardia, unspecified Category: Medical Plan: Brief SVT seen on Holter monitor, asymptomatic. Reviewed with patient. He is not on rate slowing agents at this time. Reduction in caffeine reviewed. Will plan to add beta-abhishek if he has symptomatic episodes. Emergency care if ever needed for sustained rapid heartbeats. Plan Time spent on chart review, documentation, interview and assessment Coding Level of Care Code Est Pt Level 3 (50051) Complex EM visit Add On G2211 Diagnoses Syncope R55 Essential hypertension I10 SVT (supraventricular tachycardia) I47.10 Time Spent (min) 24
--- OUTSIDE RECORDS SUMMARY | 2024-10-21 08:56 | XMS_ITS ---
Author Organization [facility] Address [address] [place] [address] Care Team Providers Care Sheet Rock Nailer Name Role Phone Layton ROGERS, Isabella Primary Care Provider Alek Carrero Jr, Avery Ruelas REASON FOR VISIT screening Encounters Encounter Location Date Provider Diagnosis [facility] [place] [address] [place] [id number] 07/22/2023 Avery Carrero Jr Encounter for screening colonoscopy Z12.11 and Colon polyps K63.5 Assessments Encounter Date Diagnosis (ICD Code) Assessment Notes Treatment Notes Treatment Clinical Notes Section Notes 07/22/2023 Encounter for screening colonoscopy (ICD-10 - Z12.11) 07/22/2023 Colon polyps (ICD-10 - K63.5) Plan Of Treatment No Information Progress Notes * ENID SILVA TDOB:1945 (79 yo M)Acc No.[id number]:07/22/2023 COLON WITH MAC Patient:?ENID SILVA Provider:?Avery Carrero MD :1945???Age:78 Y???Sex:Male Dima e:07/22/2023 Address:[address] [place] [address] Pcp:Isabella Traylor MD Subjective: * Chief Complaints: * ???1. Screening. * Medical History:? Objective: * Vitals:? Assessment: * Assessment: 1.?Encounter for screening c olonoscopy - Z12.11 (Primary)???2.?Colon polyps - K63.5??? Plan: * Treatment: * Procedure Codes:?45700 COLON OSCOPY AND BIOPSY, 0529F INTRVL 3+YRS PTS CLNSCP DOCD * * The named appointment provid er may or may not be the originator of this progress note, and it is not deemed complete until electronically signed by the appointment provider. Sign off status: Pending * Provider:?Avery Carrero MD Date:?0 07/22/2023 Generated for Martine perdue/Nena/Toyinitting on:?10/21/2024 08:56 AM EDT
--- OUTSIDE RECORDS SUMMARY | 2024-10-21 08:56 | XMS_ITS ---
Author Name [facility] [place] Organization [facility] [place] Address [address] [place] [id number] Care Team Providers Care Technology Recruiter Name Role Phone RACHELLE RODRIGUEZ Primary Care [...] NICHOL MEDEX BRONZ E October 28, 2013 [id number] PATIENT [place] SUPPLEMEN NICHOL MEDEX BRONZ E October 28, 2013 [id number] [phone] PATIENT MEDICARE ([facility]) MEDICARE (M) PART A Apr 30, 2012 PART A [id number] [facility] [address] PATIENT MEDICARE (WNR) MEDICARE (M) PART B Apr 30, 2012 PART B [id number] [facility] [address] PATIENT Selected Encounter This section includes the information on record at [place] for the Encounter. Date/Time Encounter Type Encounter Description Reason Provider Source Jun 08, 2024 08:30 AM OFFICE O/P EST MOD 30 MIN PRIMARY CARE/MEDICINE ICD-10-CM Z77.29 Contact with and exposure to other hazardous substances RACHELLE RODRIGUEZ IHJaron Encounter Template Text not used by AL Assessments - Encounter Diagnoses This section includes the primary and secondary diagnoses documented for the Encounter. Date/Time Primary/Secondary Diagnosis Diagnosis Name Provider Source Jun 25, 2024 10:18 AM PRIMARY Contact with and exposure to other hazardous substances RACHELLE RODRIGUEZ [facility] [place] [facility] Jun 25, 2024 10:18 AM SECONDARY Elevated prostate specific antigen [PSA] RACHELLE RODRIGUEZ [facility] [place] [facility] Jun 25, 2024 10:18 AM SECONDARY Essential (primary) hypertension RACHELLE RODRIGUEZ [facility] [place] [facility] Jun 25, 2024 10:18 AM SECONDARY Obesity, unspecified WENDY RODRIGUEZA [facility] [place] [facility] Jun 25, 2024 10:18 AM SECONDARY Palmar fascial fibromatosis [Dupuytren] RACHELLE RODRIGUEZ [place] [facility] [place] [facility] Lab Results: +/- 30 days of the encounter This section includes the Chemistry and Hematology Lab Results on record with AL for the patient. Radiology Reports and Pathology Reports are provided separately, in subsequent sections. Lab Results This section contains the Chemistry/Hematology Results that were resulted 30 days before or 30 daysafter the date of the Encounter. Date/Time Source Result Type Result - Unit Interpretation Reference Range Specimen Type Comment Jun 01, 2024 08:08 AM [facility] BASIC METABOLIC PANEL (non-fasting) SERUM Spe cimen Type: SERUM No comment entered. Ordering Provider: RACHELLE RODRIGUEZ Report Released Date/Time: May 26, 2024 03:48 PM Reporting Lab: [facility] [address] [facility] [address] Performing Lab: [facility] [address] [facility] [address] UREA NITROGEN 16 mg/dL 7-25 GLUCOSE 92 mg/dL 65-100 SODIUM 139 mmol/L 135-145 POTASSIUM 4.5 mmol/L 3.5-5.0 CHLORIDE 103 mmol/L 100-110 CO2 25 meq/L 20-30 CREATININE, Serum 1.22 mg/dL 0.50-1.40 eGFR(CKD-EPI 2020) 61 mL/min >60 Jun 01, 2024 08:08 AM [facility] LIPID PANEL, NON FASTING SERUM Specimen Type: SERUM No comment entered. Ordering Provider: RACHELLE RODRIGUEZ Report Released Date/Time: May 26, 2024 03:48 PM Reporting Lab: [facility] [place] [facility] [address] [facility] [address] Performing Lab: [facility] [address] [facility] [address] CHOLESTEROL 174 mg/dL TRIGLYCERIDE 156 mg/dL H [...] Source Jun 08, 2024 08:40 AM 137/80 [place] [facility] [place] [facility] Jun 08, 2024 08:20 AM 97.6 68 147/76 16 99 0 226 31 [facility] Social History: Smoking Status (Most current) and Tobacco Use (All prior to encounter date) This section includes the most current, and the historical, smoking and tobacco- related health factors from the AL facility where the Encounter took place. Current Smoking Status This section includes the most current smoking, or tobacco-related health factor, from the AL facility where the Encounter took place. Date/Time Current Smoking Status Comment Facil ity Jun 08, 2024 08:30 AM VA-TOBACCO NEVER U SED CIGARETTES [facility] Tobacco Use History This section includes a history of the smoking, or tobacco-related health factors, that were collected on or before the date of the Encounter. The data comes from the AL facility where the Encounter took place. Date/Time Smoking Status/Tobacco Use Comment F acility Jun 08, 2024 08:30 AM VA-TOBACCO NEVER U SED OTHER TYPE [place] [facility] [place] [facility] Jun 10, 2023 08:30 AM VA-TOBACCO NEVER USED [place] [facility] [place] [facility] Jun 10, 2022 09:00 AM VA-TOBACCO [facility]ED [facility] Jun 11, 2021 03:00 PM VA-TOBACCO FORMER USER [place] [facility] [place] [facility] Jun 11, 2021 03:00 PM VA-TOBACCO QUIT 15 YRS OR MORE [place] [facility] [place] [facility] Jun 02, 2020 08:00 AM VA-TOBACCO FORMER USER AL [facility] [place] [facility] Jun 02, 2020 08:00 AM VA-TOBACCO QUIT 15 YRS OR MORE [place] [facility] [place] [facility] Jun 04, 2018 08:14 AM VA-TOBACCO NEVER USED [facility] May 14, 2017 08:24 AM QUIT TOBACCO USE > 7 YEARS AGO [place] [facility] [place] [facility] Jun 13, 2016 10:57 AM QUIT TOBACCO USE 1 -7 YEARS AGO [facility] Advance Directives: All historical and current Section Date Range: From patient's date of to the date document was created. This section includes ALL of a patient's completed or amended [place] Advance and Rescinded Directives. The entries below indicate that a directive exists for the patient, but an actual copy is not included with this document. The data comes from all [place] facilities. Date Advance Directives Provider Source Jun 16, 2017 ADVANCE DIRECTIVE [facility] Encounter Notes: All associated encounter notes [...] an Advance Directive on file at this [facility]. No updates are needed at this time. The patient received education about Advance Directives and written notification of his/her rights. Suicide Screen: C-SSRS Screening [place] Suicide Severity Rating Scale (C-SSRS) screener 1. [...] for results. per completed in June at [facility], fax sent to obtain results Depression Screening: [...] Practical Nurse Signed: 06/08/2024 08:26 KAITLYN ALMODOVAR [place] [facility] [place] [facility] Jun 08, 2024 07:58 AM PHYSICIAN NOTE: LOCAL TITLE: MD NOTE STANDARD TITLE: PHYSICIAN NOTE DATE OF NOTE: JUN 08, 2024@07:58 ENTRY DATE: JUN 08, 2024@07:58:58 AUTHOR: RACHELLE RODRIGUEZ EXP COSIGNER: URGENCY: STATUS: COMPLETED ENID MANJARREZ is a 79 year old WHITE MALE who is being seen today in primary care for routine yearly follow up. ==== CARE TEAM ==== Community Primary Care Provider: Dr. Isabella Traylor, [facility], [place] Specialists: Community Specialists: KRYSTAL Carrero- quique saldana 07/19/2023 urology- Urology in [place], Dr. Sanchez ==== HISTORY ==== PERIOD OF SERVICE - [place] ERA SERVICE CONNECTED % - NONE FOUND [place], gunricky mate, [phone], +[place], +AO ==== HISTORY OF PRESENT ILLNESS [...] HISTORY ==== Background: born and raised in [place], 2 years of college- studied agronomy Marital Status: residential female partner 2019 Children: no Lives with: alone. 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 Prior/outside Colonoscopy results: Dr. Carrero- [facility], negative, no furhter (requesting results) Date: July [...] of active outpatient prescriptions dispensed from this [facility] (local) and dispensed from another [place] or DoD facility (remote) as well as [...] D.O. PHYSICIAN Signed: 06/08/2024 08:48 RACHELLE RODRIGUEZ [facility]
--- OUTSIDE RECORDS SUMMARY | 2024-10-21 08:56 | XMS_ITS | Continuity of Care Document ---
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 It does not include entries that were removed or entered in error. Problem Status Onset Date Problem Type Date of Resolution Comments Source Benign essential hypertension Active [facility] [place] [facility] Dupuytren's disease of palm Active [facility] [place] [facility] Exposure to potentially hazardous substance Active Condition Aug 20, 2023 Entered By: SONYA LOFTON Comment: Original TAMIKO Screen completed 06/10/22 [facility] [place] [facility] Obesity Active [facility] [place] [facility] Raised PSA Active Condition Jun 13 Entered By: CA OROSCO ED Comment: status post prostate biopsy in the past came out negative [facility] [place] [facility] Diagnosis: ICD-10-CM Z77.29 Contact with and exposure to other hazardous substances Active Diagnosis [facility] [place] [facility] Diagnosis: ICD-10-CM Z23 Encounter for immunization Active Diagnosis [facility] YAJAIRA DALEY [place] [facility] Diagnosis: ICD-10-CM I10 Essential (primary) hypertension Active Diagnosis [facility] [place] [facility] Medications Combined list of outpatient medications from [...] DAY ORAL ACTIVE AWILDA OROSCO JAWGWENDOLYN 2015 [facility] CHOLECALCIF WILMER 50MCG (2,000UNIT) TAB TAKE ONE TABLET BY MOUTH EVERY DAY ORAL ACTIVE AWILDA OROSCO JAWGWENDOLYN 2015 [facility] FISH OIL 1000MG (500MG DHA/EPA) CAP,ORAL TAKE 1 CAPSULE BY MOUTH EVERY DAY ORAL ACTIVE AWILDA OROSCO JAWED 2015 [facility] LISINOPRIL 10MG TAB TAKE ONE TABLET BY MOUTH EVERY DAY ORAL ACTIVE AWILDA OROSCO JAWED 2015 [facility] Immunizations Combined list of available immunizations from the Department of Defense and Veterans Affairs facilities. Immunization Series Date Given Administered By Site Reaction Lot Number CVX Code Drug Stoneworking Belt Sander Status Comments Source INFLUENZA, HIGH-DOSE, TRIVALENT, PF 2023 SANDRO ESTRELLA LEFT DELTO ID [id number] 135 complet ed [facility] INFLUENZA, UNSPECIFIED FORMULATION 2022 88 complet ed Booster for Series, HISTORICA L INFORMATI ON - FROM OTHER PROVIDER, [facility] INFLUENZA, UNSPECIFIED FORMULATION 2021 88 complet ed HISTORICA L INFORMATI ON - SOURCE UNSPECIFI ED, [facility] COVID-19 (MODERNA), MRNA, LNP-S, PF, 100 MCG OR 50 MCG DOSE 3 2020 207 complet ed [facility] INFLUENZA, UNSPECIFIED FORMULATION 2020 88 complet ed [facility] [place] [facility] COVID-19 (MODERNA), MRNA, LNP-S, PF, 100 MCG/0.5 ML DOSE 2 2020 207 complet ed MOD; [id number]; 1 [facility] [place] COVID-19 (MODERNA), MRNA, LNP-S, PF, 100 MCG/0.5 ML DOSE 1 2020 207 complet ed MOD; [id number]; 1 [facility] ZOSTER RECOMBINANT 2 2019 187 complet ed [facility] ZOSTER RECOMBINANT 1 2018 187 [...] May 26, 2024 03:48 PM Reporting Lab: [facility] WSTRN [place] [facility] [address] [facility] [address] Performing Lab: [facility] [place] [facility] [address] [facility] [address] [place] CN[place] [facility] BASIC METABOLIC PANEL (non-fast ing) GLUCOSE [MASS/VOLUM E] IN SERUM OR PLASMA 92 mg/dL 65 - 100 06/01 Specimen Type: SERUM No comment entered. Ordering Provider: WENDY RODRIGUEZ Report Released Date/Time: May 26, 2024 03:48 PM Reporting Lab: [facility] [place] [facility] [address] [facility] [address] Performing Lab: [facility]ITALRL WSTRN [facility]ITALUSENY[facility] [address] [facility] [address] [facility]ITALUSE [facility] BASIC METABOLIC PANEL (non-fast ing) SODIUM [MOLES/VOLU ME] IN SERUM OR PLASMA 139 mmol/L 135 - 145 06/01 Specimen Type: SERUM No comment entered. Ordering Provider: WENDY RODRIGUEZ Report Released Date/Time: May 26, 2024 03:48 PM Reporting Lab: [facility]OSPITALRUAB HOSPITALTRN [facility]PITALUSENY[facility] [address] [facility] [address] Performing Lab: [facility]OSPITALRMONROE COUNTY HOSPITALN [facility]OSPITALUSENY[facility] [address] [facility] [address] [facility]ITALUSE [facility] BASIC METABOLIC PANEL (non-fast ing) POTASSIUM [MOLES/VOLU ME] IN SERUM OR PLASMA 4.5 mmol/L 3.5 - 5.0 06/01 Specimen Type: SERUM No comment entered. Ordering Provider: WENDY RODRIGUEZ Report Released Date/Time: May 26, 2024 03:48 PM Reporting Lab: [facility]OSPITALUSENY[facility] [address] [facility] [address] Performing Lab: [facility]OSPITALRUAB HOSPITALTRN [facility]PITALUSENY[facility] [address] [facility] [address] [facility] BASIC METABOLIC PANEL (non-fast ing) CHLORIDE [MOLES/VOLU ME] IN SERUM OR PLASMA 103 mmol/L 100 - 110 06/01 Specimen Type: SERUM No comment entered. Ordering Provider: WENDY RODRIGUEZ Report Released Date/Time: May 26, 2024 03:48 PM Reporting Lab: [facility]OSPITALRUAB HOSPITALTRN [facility]PITALUSEN[facility] [address] [facility] [address] Performing Lab: [facility]OSPITALRMONROE COUNTY HOSPITALN [facility]OSPITALUSE[address] [address] [facility] BASIC METABOLIC PANEL (non-fast ing) CARBON DIOXIDE, TOTAL [MOLES/VOLU ME] IN SERUM OR PLASMA 25 meq/L 20 - 30 06/01 Specimen Type: SERUM No comment entered. Ordering Provider: WENDY RODRIGUEZ Report Released Date/Time: May 26, 2024 03:48 PM Reporting Lab: [facility]OSPITALRL WSTRN [place] [facility] [address] [facility] [address] Performing Lab: [place] CNTRL WSTRN [facility]OSPITALUSENY[facility] [address] [facility] [address] [facility]ITALRL WSTRN [facility]OS[facility]ITALUSE [facility] BASIC METABOLIC PANEL (non-fast ing) CREATININE [MASS/VOLUM E] IN SERUM OR PLASMA 1.22 mg/dL 0.50 - 1.40 06/01 Specimen Type: SERUM No comment entered. Ordering Provider: WENDY RODRIGUEZ Report Released Date/Time: May 26, 2024 03:48 PM Reporting Lab: [place] CNTRL WSTRN [facility] HOSPITALUSETS [facility] [address] [facility] [address] Performing Lab: [place] CNTRL WSTRN [facility]OSPITALUSENY[facility] [address] [facility] [address] [facility]OSPITALRL TRN [facility]OSPITALUSE [facility] BASIC METABOLIC PANEL (non-fast ing) GLOMERULAR FILTRATION RATE/1.73 SQ M.PREDICTED [VOLUME RATE/AREA] IN SERUM, PLASMA OR BLOOD BY CREATININE- BASED FORMULA (CKD-EPI 2020) 61 mL/min 60 06/01 Specimen Type: SERUM No comment entered. Ordering Provider: WENDY RODRIGUEZ Report Released Date/Time: May 26, 2024 03:48 PM Reporting Lab: [place] CNTRL WSTRN [facility]PITALUSENY[facility] [address] [facility] [address] Performing Lab: [facility]OSPITALRL WSTRN [facility]ITALUSEN[facility] [address] [facility] [address] [facility]OSPITALRL TRN [facility]OSPITALUSE [facility] LIPID PANEL, NON FASTING CHOLESTEROL [MASS/VOLUM E] IN SERUM OR PLASMA 174 mg/dL 06/01 Specimen Type: SERUM No comment entered. Ordering Provider: WENDY RODRIGUEZ Report Released Date/Time: May 26, 2024 03:48 PM Reporting Lab: [place] CN[facility]L [place] [facility] [address] [facility] [address] Performing Lab: [place] CNTRL WSTRN [facility]PITALUSEN[facility] [address] [facility] [address] [facility]OSPITALRL TRN [facility]OS[facility]ITALUSE [facility] LIPID PANEL, NON FASTING TRIGLYCERID E [MASS/VOLUM E] IN SERUM OR PLASMA 156 mg/dL 0 - 150 06/01 H Specimen Type: SERUM No comment entered. Ordering Provider: WENDY RODRIGUEZ Report Released Date/Time: May 26, 2024 03:48 PM Reporting Lab: [place] [facility] [place] [facility] [address] [facility] [address] Performing Lab: [place] CNTRL WSTRN [facility]OSPITALUSETS [facility] [address] [facility] [address] [facility]OSPITALRL WSTRN [facility]ENTERCHUSE [facility] LIPID PANEL, NON FASTING CHOLESTEROL IN LDL [MASS/VOLUM E] IN SERUM OR PLASMA BY CALCULATION 101 mg/dL 0 - 129 06/01 Specimen Type: SERUM No comment entered. Ordering Provider: WENDY RODRIGUEZ Report Released Date/Time: May 26, 2024 03:48 PM Reporting Lab: [facility]OSPITALRL WSTRN [facility]ITALUSE[address] [address] Performing Lab: [facility]OSPITALRL WSTRN [facility] HOSPITALUSETS [address] [address] [facility]OSPITALRL TRN [facility]OS[facility]ITALUSE [facility] LIPID PANEL, NON FASTING CHOLESTEROL .TOTAL/CHOL ESTEROL IN HDL [MASS RATIO] IN SERUM OR PLASMA 4.1 06/01 Specimen Type: SERUM No comment entered. Ordering Provider: WENDY RODRIGUEZ Report Released Date/Time: May 26, 2024 03:48 PM Reporting Lab: [facility]PITALRL WSTRN [place] [address] [address] Performing Lab: [place] CNTRL WSTRN [facility]OSPITALUSETS [facility] [address] [facility] [address] [facility]OSPITALRL WSTRN [facility]ITALUSE [facility] LIPID PANEL, NON FASTING CHOLESTEROL IN HDL [MASS/VOLUM E] IN SERUM OR PLASMA 42 mg/dL 40 - 60 06/01 Specimen Type: SERUM No comment entered. Ordering Provider: WENDY RODRIGUEZ Report Released Date/Time: May 26, 2024 03:48 PM Reporting Lab: [place] [facility] [place] [facility] [address] [facility] [address] Performing Lab: [facility] CNTRL WSTRN [facility] CENTERCHUSETS [address] [address] [facility] [place] [facility] CBC AND DIFF (AUTO) LEUKOCYTES [#/VOLUME] IN BLOOD BY AUTOMATED COUNT 5.46 10*3/u L 4.50 - 11.00 05/30 Specimen Type: BLOOD No comment entered. Ordering Provider: KERI OROSCO Report Released Date/Time: May 23, 2023 03:18 PM Reporting Lab: [facility] [place] [facility] [address] [facility] [address] Performing Lab: [facility] [place] [facility] [address] [facility] [address] [facility] [place] [facility] CBC AND DIFF (AUTO) ERYTHROCYTE S [#/VOLUME] IN BLOOD BY AUTOMATED COUNT 4.48 10*6/u L 4.23 - 5.66 05/30 Specimen Type: BLOOD No comment entered. Ordering Provider: KERI OROSCO Report Released Date/Time: May 23, 2023 03:18 PM Reporting Lab: [facility] [place] [facility] [address] [facility] [address] Performing Lab: [facility] [place] [facility] [address] [place] [address] [facility] [place] [facility] CBC AND DIFF (AUTO) HEMOGLOBIN [MASS/VOLUM E] IN BLOOD 14.1 g/dL 12.8 - 17 05/30 Specimen Type: BLOOD No comment entered. Ordering Provider: KERI OROSCO Report Released Date/Time: May 23, 2023 03:18 PM Reporting Lab: [facility] [place] [facility] [address] [facility] [address] Performing Lab: [facility] [place] [facility] [address] [place] [address] [facility] [place] [facility] CBC AND DIFF (AUTO) HEMATOCRIT [VOLUME FRACTION] OF BLOOD BY AUTOMATED COUNT 41.9 39.2 - 50.4 05/30 Specimen Type: BLOOD No comment entered. Ordering Provider: KERI OROSCO Report Released Date/Time: May 23, 2023 03:18 PM Reporting Lab: [facility] [place] [address] [place] [address] Performing Lab: [facility] [place] [place] [facility] [address] [facility] [address] [facility] [place] [facility] CBC AND DIFF (AUTO) MCV [ENTITIC VOLUME] BY AUTOMATED COUNT 93.5 fL 82 - 99 05/30 Specimen Type: BLOOD No comment entered. Ordering Provider: KERI OROSCO Report Released Date/Time: May 23, 2023 03:18 PM Reporting Lab: [facility] [place] [place] [facility] [address] [facility] [address] Performing Lab: [facility] [place] [facility] [address] [facility] [address] [facility] [place] [facility] CBC AND DIFF (AUTO) MCHC [MASS/VOLUM E] BY AUTOMATED COUNT 33.7 g/dL 30.8 - 35.1 05/30 Specimen Type: BLOOD No comment entered. Ordering Provider: KERI OROSCO Report Released Date/Time: May 23, 2023 03:18 PM Reporting Lab: [facility] [place] [facility] [address] [facility] [address] Performing Lab: [facility] [place] [facility] [address] [facility] [address] [facility] [place] [facility] CBC AND DIFF (AUTO) PLATELETS [#/VOLUME] IN BLOOD BY AUTOMATED COUNT 309 10*3/u L 140 - 360 05/30 Specimen Type: BLOOD No comment entered. Ordering Provider: KERI OROSCO Report Released Date/Time: May 23, 2023 03:18 PM Reporting Lab: [facility] [place] [place] [facility] [address] [facility] [address] Performing Lab: [facility] [place] [facility] [address] [facility] [address] [facility] [place] [facility] CBC AND DIFF (AUTO) ERYTHROCYTE DISTRIBUTIO N WIDTH [RATIO] BY AUTOMATED COUNT 12.5 12.0 - 16.0 05/30 Specimen Type: BLOOD No comment entered. Ordering Provider: KERI OROSCO Report Released Date/Time: May 23, 2023 03:18 PM Reporting Lab: [facility] [place] [facility] [address] [facility] [address] Performing Lab: [facility] [place] [facility] [address] [facility] [address] [facility] [place] [facility] CBC AND DIFF (AUTO) MONOCYTES [#/VOLUME] IN BLOOD BY AUTOMATED COUNT 0.55 10*3/u L 0.30 - 1.10 05/30 Specimen Type: BLOOD No comment entered. Ordering Provider: KERI OROSCOStylecrook Report Released Date/Time: May 23, 2023 03:18 PM Reporting Lab: [facility] [place] [facility] [address] [facility] [address] Performing Lab: [facility] [place] [facility] [address] [facility] [address] [facility] [place] [facility] CBC AND DIFF (AUTO) MCH [ENTITIC MASS] BY AUTOMATED COUNT 31.5 pg 26.2 - 32.6 05/30 Specimen Type: BLOOD No comment entered. Ordering Provider: KERI OROSCO Report Released Date/Time: May 23, 2023 03:18 PM Reporting Lab: [facility] [place] [facility] [address] [facility] [address] Performing Lab: [facility] [place] [facility] [address] [facility] [address] [facility] [place] [facility] CBC AND DIFF (AUTO) NEUTROPHILS /100 LEUKOCYTES IN BLOOD BY AUTOMATED COUNT 39.4 43.7 - 75.8 05/30 L Specimen Type: BLOOD No comment entered. Ordering Provider: KERI OROSCO [email or web address] Report Released Date/Time: May 23, 2023 03:18 PM Reporting Lab: [facility] [place] [facility] [address] [facility] [address] Performing Lab: [facility] [place] [facility] [address] [facility] [address] [facility] [place] [facility] CBC AND DIFF (AUTO) LYMPHOCYTES /100 LEUKOCYTES IN BLOOD BY AUTOMATED COUNT 44.5 14.0 - 42.3 05/30 H Specimen Type: BLOOD No comment entered. Ordering Provider: KERI OROSCO Report Released Date/Time: May 23, 2023 03:18 PM Reporting Lab: [facility] [place] [facility] [address] [facility] [address] Performing Lab: [facility] [place] [facility] [address] [facility] [address] [facility] [place] [facility] CBC AND DIFF (AUTO) MONOCYTES/1 00 LEUKOCYTES IN BLOOD BY AUTOMATED COUNT 10.1 5.1 - 13.7 05/30 Specimen Type: BLOOD No comment entered. Ordering Provider: KERI OROSCO Report Released Date/Time: May 23, 2023 03:18 PM Reporting Lab: [facility] [place] [place] [facility] [address] [facility] [address] Performing Lab: [facility] [place] [facility] [address] [facility] [address] [facility] [place] [facility] CBC AND DIFF (AUTO) EOSINOPHILS /100 LEUKOCYTES IN BLOOD BY AUTOMATED COUNT 4.2 0.4 - 6.8 05/30 Specimen Type: BLOOD No comment entered. Ordering Provider: KERI OROSCO Report Released Date/Time: May 23, 2023 03:18 PM Reporting Lab: [facility] [place] [facility] [address] [facility] [address] Performing Lab: [facility] [place] [facility] [address] [facility] [address] [facility] [place] [facility] CBC AND DIFF (AUTO) BASOPHILS/1 00 LEUKOCYTES IN BLOOD BY AUTOMATED COUNT 1.6 0.1 - 2.0 05/30 Specimen Type: BLOOD No comment entered. Ordering Provider: KERI OROSCO Report Released Date/Time: May 23, 2023 03:18 PM Reporting Lab: [facility] [place] [facility] [address] [facility] [address] Performing Lab: [facility] [facility] [address] [facility] [address] [facility] [place] [facility] CBC AND DIFF (AUTO) NEUTROPHILS [#/VOLUME] IN BLOOD BY AUTOMATED COUNT 2.15 10*3/u L 2.20 - 7.60 05/30 L Specimen Type: BLOOD No comment entered. Ordering Provider: KERI OROSCO Report Released Date/Time: May 23, 2023 03:18 PM Reporting Lab: [facility] [place] [facility] [address] [facility] [address] Performing Lab: [facility] [place] [facility] [address] [facility] [address] [facility] [place] [facility] CBC AND DIFF (AUTO) LYMPHOCYTES [#/VOLUME] IN BLOOD BY AUTOMATED COUNT 2.43 10*3/u L 1.00 - 3.20 05/30 Specimen Type: BLOOD No comment entered. Ordering Provider: KERI OROSCO Report Released Date/Time: May 23, 2023 03:18 PM Reporting Lab: [facility] [place] [facility] [address] [facility] [address] Performing Lab: [facility] [place] [facility] [address] [facility] [address] [facility] [place] [facility] CBC AND DIFF (AUTO) EOSINOPHILS [#/VOLUME] IN BLOOD BY AUTOMATED COUNT 0.23 10*3/u L 0.03 - 0.44 05/30 Specimen Type: BLOOD No comment entered. Ordering Provider: KERI OROSCO Report Released Date/Time: May 23, 2023 03:18 PM Reporting Lab: [facility] [place] [facility] [address] [facility] [address] Performing Lab: [facility] [place] [facility] [address] [place] [address] [facility] [place] [facility] CBC AND DIFF (AUTO) BASOPHILS [#/VOLUME] IN BLOOD BY AUTOMATED COUNT 0.09 10*3/u L 0.01 - 0.13 05/30 Specimen Type: BLOOD No comment entered. Ordering Provider: KERI OROSCO Report Released Date/Time: May 23, 2023 03:18 PM Reporting Lab: [facility] [place] [facility] [address] [facility] [address] Performing Lab: [place] [facility] [place] [facility] [address] [facility] [address] [facility] [place] [facility] CBC AND DIFF (AUTO) IMMATURE GRANULOCYTE S/100 LEUKOCYTES IN BLOOD BY AUTOMATED COUNT 0.2 0.0 - 0.7 05/30 Specimen Type: BLOOD No comment entered. Ordering Provider: KERI OROSCO Report Released Date/Time: May 23, 2023 03:18 PM Reporting Lab: [facility] [place] [facility] [address] [facility] [address] Performing Lab: [facility] [place] [facility] [address] [facility] [address] [facility] [place] [facility] CBC AND DIFF (AUTO) IMMATURE GRANULOCYTE S [#/VOLUME] IN BLOOD 0.01 10*3/u L 0.00 - 0.06 05/30 Specimen Type: BLOOD No comment entered. Ordering Provider: KERI OROSCO Report Released Date/Time: May 23, 2023 03:18 PM Reporting Lab: [facility] [place] [facility] [address] [facility] [address] Performing Lab: [facility] [place] [facility] [address] [facility] [address] [facility] W[facility]N [place] [facility] LIPID PANEL FASTING CHOLESTEROL [MASS/VOLUM E] IN SERUM OR PLASMA 158 mg/dL 05/30 Specimen Type: SERUM No comment entered. Ordering Provider: KERI OROSCO Report Released Date/Time: May 23, 2023 03:18 PM Reporting Lab: [facility] [place] [facility] [address] [facility] [address] Performing Lab: [place] [facility] [place] [facility] [address] [facility] [address] [facility] [place] [facility] LIPID PANEL FASTING TRIGLYCERID E [MASS/VOLUM E] IN SERUM OR PLASMA 100 mg/dL 0 - 150 05/30 Specimen Type: SERUM No comment entered. Ordering Provider: KERI OROSCO Report Released Date/Time: May 23, 2023 03:18 PM Reporting Lab: [facility] [place] [facility] [address] [facility] [address] Performing Lab: [facility] [place] [facility] [address] [facility] [address] [facility] [place] [facility] LIPID PANEL FASTING CHOLESTEROL IN LDL [MASS/VOLUM E] IN SERUM OR PLASMA BY CALCULATION 96 mg/dL 0 - 129 05/30 Specimen Type: SERUM No comment entered. Ordering Provider: KERI OROSCO Report Released Date/Time: May 23, 2023 03:18 PM Reporting Lab: [facility] [place] [facility] [address] [facility] [address] Performing Lab: [facility] [place] [facility] [address] [facility] [address] [facility] [place] [facility] LIPID PANEL FASTING CHOLESTEROL .TOTAL/CHOL ESTEROL IN HDL [MASS RATIO] IN SERUM OR PLASMA 3.8 05/30 Specimen Type: SERUM No comment entered. Ordering Provider: KERI OROSCO Report Released Date/Time: May 23, 2023 03:18 PM Reporting Lab: [facility] [place] [facility] [address] [facility] [phone] Performing Lab: [facility] [place] [facility] [address] [facility] [address] [facility] [place] [facility] LIPID PANEL FASTING CHOLESTEROL IN HDL [MASS/VOLUM E] IN SERUM OR PLASMA 42 mg/dL 40 - 60 05/30 Specimen Type: SERUM No comment entered. Ordering Provider: KERI OROSCO Report Released Date/Time: May 23, 2023 03:18 PM Reporting Lab: [facility] [place] [facility] [address] [facility] [address] Performing Lab: [facility] [place] [facility] [address] [facility] [address] [facility] [place] [facility] BASIC METABOLIC PANEL (fasting) UREA NITROGEN [MASS/VOLUM E] IN SERUM OR PLASMA 14 mg/dL 7 - 25 05/30 Specimen Type: SERUM No comment entered. Ordering Provider: KERI OROSCO Report Released Date/Time: May 23, 2023 03:18 PM Reporting Lab: [facility] [place] [facility] [address] [facility] [address] Performing Lab: [facility] [facility] [address] [facility] [address] [facility] BASIC METABOLIC PANEL (fasting) GLUCOSE [MASS/VOLUM E] IN SERUM OR PLASMA 96 mg/dL 65 - 100 05/30 Specimen Type: SERUM No comment entered. Ordering Provider: KERI OROSCO Report Released Date/Time: May 23, 2023 03:18 PM Reporting Lab: [facility] [place] [facility] [address] [facility] [address] Performing Lab: [facility] [place] [address] [address] [facility] BASIC METABOLIC PANEL (fasting) SODIUM [MOLES/VOLU ME] IN SERUM OR PLASMA 138 mmol/L 135 - 145 05/30 Specimen Type: SERUM No comment entered. Ordering Provider: KERI OROSCO Report Released Date/Time: May 23, 2023 03:18 PM Reporting Lab: [facility] [place] [facility] [address] [facility] [address] Performing Lab: [facility] [place] [facility] [address] [facility] [address] [facility] [place] [facility] BASIC METABOLIC PANEL (fasting) POTASSIUM [MOLES/VOLU ME] IN SERUM OR PLASMA 4.3 mmol/L 3.5 - 5.0 05/30 Specimen Type: SERUM No comment entered. Ordering Provider: KERI OROSCO Report Released Date/Time: May 23, 2023 03:18 PM Reporting Lab: [facility] [place] [facility] [address] [facility] [address] Performing Lab: [facility] [place] [facility] [address] [facility] [address] [facility] [place] [facility] BASIC METABOLIC PANEL (fasting) CHLORIDE [MOLES/VOLU ME] IN SERUM OR PLASMA 104 mmol/L 100 - 110 05/30 Specimen Type: SERUM No comment entered. Ordering Provider: KERI OROSCO Report Released Date/Time: May 23, 2023 03:18 PM Reporting Lab: [facility] [place] [address] [address] Performing Lab: [facility] [place] [facility] [address] [facility] [address] [facility] [place] BASIC METABOLIC PANEL (fasting) CARBON DIOXIDE, TOTAL [MOLES/VOLU ME] IN SERUM OR PLASMA 26 meq/L 20 - 30 05/30 Specimen Type: SERUM No comment entered. Ordering Provider: KERI OROSCO Report Released Date/Time: May 23, 2023 03:18 PM Reporting Lab: [facility] [place] [address] [address] Performing Lab: [facility] [place] [facility] [address] [facility] [address] [facility] BASIC METABOLIC PANEL (fasting) CREATININE [MASS/VOLUM E] IN SERUM OR PLASMA 1.13 mg/dL 0.50 - 1.40 05/30 Specimen Type: SERUM No comment entered. Ordering Provider: KERI OROSCO Report Released Date/Time: May 23, 2023 03:18 PM Reporting Lab: [facility] [place] [address] [address] Performing Lab: [facility] [place] [address] [address] [facility] [place] [facility] BASIC METABOLIC PANEL (fasting) GLOMERULAR FILTRATION RATE/1.73 SQ M.PREDICTED [VOLUME RATE/AREA] IN SERUM, PLASMA OR BLOOD BY CREATININE- BASED FORMULA (CKD-EPI 2020) 67 mL/min 60 05/30 Specimen Type: SERUM No comment entered. Ordering Provider: KERI OROSCO Report Released Date/Time: May 23, 2023 03:18 PM Reporting Lab: [facility] [place] [facility] [address] [facility] [address] Performing Lab: [facility] [place] [facility] [address] [facility] [address] [facility] [place] [facility] LIVER FUNCTION PROTEIN [MASS/VOLUM E] IN SERUM OR PLASMA 7.4 g/dL 6.0 - 8.3 05/30 Specimen Type: SERUM No comment entered. Ordering Provider: KERI OROSCO Report Released Date/Time: May 23, 2023 03:18 PM Reporting Lab: [facility] [place] [facility] [address] [facility] [address] Performing Lab: [facility] [place] [facility] [address] [facility] [address] [place] [facility] [place] [facility] LIVER FUNCTION ALBUMIN [MASS/VOLUM E] IN SERUM OR PLASMA 3.8 g/dL 3.5 - 5.0 05/30 Specimen Type: SERUM No comment entered. Ordering Provider: KERI OROSCO Report Released Date/Time: May 23, 2023 03:18 PM Reporting Lab: [facility] [place] [facility] [address] [facility] [address] Performing Lab: [facility] [place] [facility] [address] [facility] [address] [facility] [place] [facility] LIVER FUNCTION ALKALINE PHOSPHATASE [ENZYMATIC ACTIVITY/VO LUME] IN SERUM OR PLASMA 59 U/L 40 - 150 05/30 Specimen Type: SERUM No comment entered. Ordering Provider: KERI OROSCO Report Released Date/Time: May 23, 2023 03:18 PM Reporting Lab: [facility] [place] [facility] [address] [facility] [address] Performing Lab: [facility] [place] [facility] [address] [facility] [address] [facility] [place] [facility] LIVER FUNCTION ASPARTATE AMINOTRANSF ERASE [ENZYMATIC ACTIVITY/VO LUME] IN SERUM OR PLASMA 22 U/L 5 - 34 05/30 Specimen Type: SERUM No comment entered. Ordering Provider: KERI OROSCO Report Released Date/Time: May 23, 2023 03:18 PM Reporting Lab: [facility] [place] [facility] [address] [facility] [address] Performing Lab: [facility] [place] [facility] [address] [facility] [address] [facility] [place] [facility] LIVER FUNCTION ALANINE AMINOTRANSF ERASE [ENZYMATIC ACTIVITY/VO LUME] IN SERUM OR PLASMA 19 U/L 05/30 Specimen Type: SERUM No comment entered. Ordering Provider: KERI OROSCO Report Released Date/Time: May 23, 2023 03:18 PM Reporting Lab: [facility] [place] [facility] [address] [facility] [address] Performing Lab: [facility] [place] [facility] [address] [facility] [address] [facility] [place] [facility] LIVER FUNCTION BILIRUBIN.T OTAL [MASS/VOLUM E] IN SERUM OR PLASMA 0.6 mg/dL 0.2 - 1.2 05/30 Specimen Type: SERUM No comment entered. Ordering Provider: KERI OROSCO Report Released Date/Time: May 23, 2023 03:18 PM Reporting Lab: [facility] [place] [facility] [address] [facility] [address] Performing Lab: [facility] [place] [facility] [address] [facility] [address] [facility] [place] [facility] Vital Signs Combined list of inpatient and outpatient Vital Signs from Department of Defense and Veterans Affairs, ranging from 12 months to all on record, depending upon the facility. Vital Sign Value Date Comments Source SYSTOLIC BLOOD PRESSURE 147 06/08/20 24 08:20:04 [facility] [place] [facility] DIASTOLIC BLOOD PRESSURE 76 024 08:20:04 [facility] [place] [facility] PULSE OXIMETRY 99 06/08/2024 08:20:04 [facility] [place] [facility] WEIGHT 226 06/08/2024 08:20:04 [facility] [...] included; 2) Encounters from the Department of [facility] facilities going backup to 280 months. Location Location Details Encounter Type Encounter Number Reason For Visit Attending Provider ADM Date DC Date Status Disposition Source [facility] [id number] 05/08 [facility] [id number] 05/29 [facility] En[facility] [id number] 06/10 [facility] OFF[facility] O/P EST LOW 20-29 MIN [id number] Diagnos is: ICD-10- CM I10 Essenti al (primar y) hyperte nsion AHMED,MOHA MMED JAWED 06/10 [facility] En[facility] [id number] 07/19 [facility] [id number] 08/08 [facility] [place] [facility] OFF/OP EST MAY X REQ PHY/QHP [id number] 1. Diagnos is: ICD-10- CM Z23 Encount er for immuniz RA KATIE Kerr 03/12 [facility] [place] [place] [facility] Outpatient Encounter [id number] 1.05/28 [facility] [place] [facility] Outpatient [facility]counter [id number] 1[facility]06/08 [facility] [place] [facility] OFFICE O/P EST MOD 30 MIN [id number] 1. Diagnos is: ICD-10- CM Z77.29 Contact with and exposur e to other hazardo us substan eitan FURCOLO,TI NA 06/08 [facility] [place] Social History Combined list of available smoking, tobacco, and other social history from Department of Defense and Veterans Affairs facilities. Social History Type Response Date Comment Sourc e Tobacco smoking status [facility] VA-TOBACCO NEVER USED CIGARETTES 06/08/2024 VA [...] USE > 7 YEARS AGO 05/14/2017 [facility] History of tobacco use QUIT TOBACCO USE 1-7 YEARS AGO 06/13/2016 [facility] Advance Directives List of completed, amended, or rescinded Advance Directives on record at Department of [facility] facilities. An actual copy of the Directive is not included. Date Advance Directive Provider Source 06/16/2017 ADVANCE DIRECTIVE SUNNY TRUONG [facility]
--- OUTSIDE RECORDS SUMMARY | 2024-10-21 08:57 | XMS_ITS ---
Author Organization [facility] Address [address] [place] [address] Care Team Providers Care Jewelry Mold Maker Name Role Phone Layton ROGERS, Isabella Primary Care Provider Avery Paulson Jr Unavailable Allergies No Known Allergies REASON FOR VISIT Patient presents today for a recall colonoscopy Medications Medication SIG (Take, Route, Frequency, Duration) Notes [...] the procedure for 1 day 05/14/2023 Active Social History Tobacco Use: Social History Observation Description Date Details (start date - stop date) Never Smoker NA - NA Tobacco Use/Smoking Question Answer Notes Patient is a nonsmoker Alcohol Screen Question Answer Notes Did you have a drink containing alcohol in the p ast year? 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 current use of non-steroidal anti-inflammat ory drug (9799274678096 03) Long-term use of aspirin therapy (Z79.82) Active confirmed Vital Signs Temperature 98.7 degrees Fahrenheit 05/14/20 23 Blood pressure systolic 000 mm Hg 05/14/20 23 Blood pressure diastolic 00 mm Hg 023 Height 74 in 05/14/2023 Weight 223 lbs 05/14/2023 BMI 28.63 kg/m2 05/14/2023 Encounters Encounter Location Date Provider Diagnosis [facility] [address] [facility] [address] [place] [phone] 05/14/2023 Avery Carrero Jr Colon cancer screening Z12.11 and Long-term use of aspirin therapy Z79.82 Assessments Encounter Date Diagnosis (ICD Code) Assessment Notes Treatment Notes Treatment Clinical Notes Section Notes 05/14/2023 Colon cancer screening (ICD-10 - Z12.11) Colonoscopy material was printed We discussed colonoscopy today. We discussed risks and benefits of the procedure today. He understands these and agrees to proceed. This will be scheduled at his convenience. He is advised stop aspirin and fish oil one week before the procedure. 05/14/2023 Long-term use of aspirin therapy (ICD-10 - Z79.82) We discussed colonoscopy today. We discussed risks and benefits of the procedure today. He understands these and agrees to proceed. This will be scheduled at his convenience. He is advised stop aspirin and fish oil one week before the procedure. Plan Of Treatment Medication Medication Name Sig Start Date Stop [...] Follow Up: prn, Reason: Progress Notes * ENID MANJARREZ TDOB:1945 (77 yo M)Acc No.[id number]:05/14/2023 Progress Notes Patient:ENID COX Provider:?Avery Carrero MD :1945???Age:77 Y???Sex:Male Dima e:05/14/2023 Address:[address] [place], [place] [id number] Pcp:Isabella Traylor MD Subjective: * Chief Complaints: * ???1. Patient presents today for a recall colonoscopy. * HPI: ???New symptom(s):? Mr. Manjarrez is a pleasant 77-year-old man seen today for his preoperative colonoscopy visit. He has no complaints of rectal bleeding or change in his bowel habits. Weight and appetite have been stable. Previous colonoscopy in 2012 showed diverticulosis and hemorrhoids. * ROS:?General/Constitutional:?Change in appetite?denies.?Fatigue?denies.?ENT:?Patient denies?difficulty swallowing.?Respiratory:?Patient denies?shortness of breath.?Cardiovascular:?Patient denies?chest pain.?Gastrointestinal:?Comments?See HPI for details.?Genitourinary:?Difficulty urinating?denies.?Incontinence?denies.?Musculoskeletal:?Patient denies?muscle aches.?Skin:?Patient denies?pruritis.?Neurologic:?Patient denies?low back pain.?Psychiatric:?Patient denies?mental or physical abuse.? * Medical History:?Colonoscopy 03/12, diverticulosis and hemorrhoids, ten-year followup, Hypertension, Spinal stenosis, Dupuytren's contracture, left fifth finger, Elevated PSA. * Surgical History:?back surge ry 2021. * Family History:?Father: dece ased, diagnosed with Heart disease.?Mother: , diagnosed with Heart disease.? Her has a negative family history for colorectal cancer. * Social History:?Tobacco Use:?Tobacco Use/Smoking?Patient is a?nonsmoker.?Drugs/Alcohol:?Alcohol Screen?Did you have a drink containing alcohol in the past year??No,?Points?0,?Interpretation?Negative.?Miscellaneous:?Marital status: single. Occupation: works part-time. * Medications:?Taking Fish Oil 1000 MG Capsule 1 capsule Orally Once a day, Taking Aspirin 81 81 MG Tablet Delayed Release 1 tablet Orally Once a day, Taking Lisinopril 10mg , Discontinued MoviPrep 100 GM Solution Reconstituted as directed before colonoscopy Orally , Medication List reviewed and reconciled with the patient * Allergies:?N.K.D.A. Objective: * Vitals:?Wt: 223 lbs, Ht: 74 in, BMI:28.63 Index, BP: 000/00 mm Hg, Temp: 98.7. * Examination: ???General Examination: ?GENERAL APPEARANCE:?in no acute distress.?HEAD:?normocephalic.?EYES:?sclera non-icteric.?ORAL CAVITY:?mucosa moist.?NECK/THYROID:?no lymphadenopathy.?SKIN:?anicteric.?HEART:?S1, S2 normal, no murmurs.?LUNGS:?clear to auscultation bilaterally.?CHEST:?normal shape and expansion.?ABDOMEN:?soft, nontender, nondistended, bowel sounds present, no organomegaly .?EXTREMITIES:?no clubbing, cyanosis, or edema.?PSYCH:?cognitive function intact.? Assessment: * Assessment: 1.?Long-term use of aspirin therapy - Z79.82 (Primary)?2.?Colon cancer screening - Z12.11? We discussed colonoscopy tod annalee. We discussed risks and benefits of the procedure today. He understands these and agrees to proceed. This will be scheduled at his convenience. He is advised stop aspirin and fish oil one week before the procedure. Plan: * Treatment: Notes: Colonoscopy material was printed.?? * Procedure Codes:?3017F COLOR ECTAL CA SCREEN DOC REV, G9903 Pt scrn tbco id as non user, G9744 PATIENT NOT ELIG D/T ACTIVE DX HTN * Preventive Medicine:? ??Counseling:?Care goal follow-up plan:?Above Normal BMI Follow-up?Giving encouragement to exercise,?BMI management provided?Yes.? * Follow Up:?prn * * Sign off status: Completed true * Provider:?Avery Carrero MD Date:?07/14/2022 Generated for Martine perdue/Nena/Toyinitting on:?10/21/2024 08:56 AM EDT History and Physical Notes * HPI (History of Present Illness) Category Sub-Category Detail Notes Category Not es New symptom(s) Mr. Manjarrez is a pleasant 77-year-old man seen today for his preoperative colonoscopy visit. He has no complaints of rectal bleeding or change in his bowel habits. Weight and appetite have been stable. Previous colonoscopy in 2013 showed diverticulosis and hemorrhoids. Examination Category Sub-Category Detail Notes Category Not es General Examination GENERAL APPEARANCE: in no acute di stress HEAD: normocephalic EYES: sclera non-icteric NECK/THYROID: no lymphadenopathy HEART: S1, S2 normal, no mu rmurs CHEST: normal shape and exp ansion LUNGS: clear to auscultatio n bilaterally ABDOMEN: soft, nontender, non distended, bowel sounds present, no organomegaly SKIN: anicteric EXTREMITIES: no clubbing, cyanosi s, or edema PSYCH: cognitive function i ntact ORAL CAVITY: mucosa moist
--- OUTSIDE RECORDS SUMMARY | 2024-10-21 08:57 | XMS_ITS ---
Author Organization [facility] Address [address] [place] [phone] Care Team Providers Care Closet Organizer Name Role Phone Layton ROGERS, Isabella Primary Care Provider Alek Carrero Jr, Avery Ruelas [phone] REASON FOR VISIT pathology Encounters Encounter Location Date Provider Diagnosis [facility] [address] [place] [phone] 07/31/2023 Avery Carrero Jr Plan Of Treatment No Information Progress Notes * ENID SILVA TDOB:1945 (78 yo M)Acc No.[id number]:07/31/2023 Patient:?ENID SILVA :1945???Age:78 Y???Sex:Male Address:[address] [place] [address] * true * Date:? Generated for Temoi nette/Nena/eTransmitting on:?10/21/2024 08:56 AM EDT
--- OUTSIDE RECORDS SUMMARY | 2024-10-21 08:57 | XMS_ITS | Patient Health Record ---
Author Organization [facility] Address [address] [place] [phone] Care Team Providers Care Assistant Professor Of Surgery Name Role Phone Isabella Traylor MD Primary Care Provider Avery Paulson Jr Unavailable [phone] Allergies No Known Allergies Reason For Referral No Information Medications Medication SIG (Take, Route, Frequency, Duration) [...] the procedure for 1 day 05/14/2023 Active Immunizations Vaccine Route Administration Date Status Comme nts Influenza Unknown 03/29/2023 Administered Problems Problem Type SNOMED Code ICD Code Onset Dates Problem Status W/U Status Risk Notes Problem Screening for neoplasm done (7835786653) Colon cancer screening (Z12.11) Active confirmed Problem penitentiary current use of non-steroidal anti-inflammat ory drug (8801994348909 03) Long-term use of aspirin therapy (Z79.82) Active confirmed Plan Of Treatment Future Test Test Name Order Date COLONOSCOPY 11/06/2012 COLONOSCOPY 05/14/2023 Insurance Providers Payer Name Payer Address Payer Phone Subscriber Number Group Number Insured Name Patient Relationship to Insured Coverage Start Date Coverage End Date MED[place]ARE [place] [address] [place] [address] [id number] ENID SILVA Self - patient is the insured MED[employer] ATTN CLAIMS [address] [place] [phone] [id number] ENID SILVA Self - patient is the insured Medical (General) History Medical History History ICD Code colonoscopy 03/12, diverticulosis and hem orrhoids, ten-year followup Hypertension Spinal stenosis Dupuytren's contracture, left fifth fing er Elevated PSA Surgical History Surgery Date(Month/Year) back surgery 2021
== END 2024-10-21 09:07 | disposition home or self-care (01) ==
LOC: HO.HCS 08:33
PROVIDERS: PCP Internal Medicine; Visit Provider Nurse Practitioner Family
DX: R55 Syncope and collapse (principal); I10 Essential (primary) hypertension; I47.10 Supraventricular tachycardia, unspecified
CPT/HCPCS: 99213; G2211

== ENCOUNTER → 2024-10-21 08:33 | Outpatient (BNVA) | payer MEDICARE, SELFPAY | PROVIDERS: PCP Internal Medicine; Visit Provider Nurse Practitioner Family | DX: I10 Essential (primary) hypertension (principal); R55 Syncope and collapse; I47.10 Supraventricular tachycardia, unspecified | CPT/HCPCS: 99212 ==

== ENCOUNTER 2024-12-23 08:22 | Outpatient (AMB) | payer MEDICARE, SELFPAY ==
--- OUTSIDE RECORDS SUMMARY | 2023-07-22 03:30 | XMS_ITS ---
Author Organization [facility] Address [address] [place] [phone] Care Team Providers Care Metal Polisher Name Role Phone Layton ROGERS, Isabella Primary Care Provider Alek Carrero Jr, Avery Unavailable REASON FOR VISIT screening Encounters Encounter Location Date Provider Diagnosis [facility] [place] [facility] [address] [place] [id number] 07/22/2023 Avery Carrero Jr Encounter for screening colonoscopy Z12.11 and Colon polyps K63.5 Assessments Encounter Date Diagnosis (ICD Code) Assessment Notes Treatment Notes Treatment Clinical Notes Section Notes 07/22/2023 Encounter for screening colonoscopy (ICD-10 - Z12.11) 07/22/2023 Colon polyps (ICD-10 - K63.5) Plan Of Treatment No Information Progress Notes * ENID SILVA TDOB:1945 (79 yo M)Acc No.[id number]:07/22/2023 COLON WITH MAC Patient: ENID CONRAD Provider: Alise Carrero MD :1945 A ge:78 Y S ex:Male Date:07/22/2023 Address:[address] [place] [id number] Pcp:Isabella Traylor MD Subjective: * Chief Complaints: [...] 07/22/2023 Generated for Martine perdue/Nena/Gabriel on: 0 12/23/2024 08:36 AM EDT
--- NOTE | 2024-12-23 08:31 | A.OFFVIS_ITS ---
Intake Vital Signs 12/23/24 08:39 12/23/24 09:10 Height 6 ft 2 in Weight 225 lb BMI 28.9 BP 148/70 H 135/80 Blood Pressure Location Lt brachial Lt brachial Position Sitting Sitting Respiration 16 Pulse 71 Pulse Source Pulse Oximeter Temp 98.3 F Temp Source Oral Pulse Oximetry (%) 98 Comment Has not taken lisinopril this morning Intake Visit Reasons: ASWV G0439 Intake Note: Pt is here today for his AWV: last colonoscopy 03/10/13 Allergies No Known Allergies Allergy (Verified 12/23/24 09:11) Medication List - Last Reconciled 12/23/24 by Isabella Traylor MD aspirin (Adult Low Dose Aspirin) 81 mg PO DAILY cholecalciferol (vitamin D3) 50 mcg PO DAILY lisinopril 10 mg PO DAILY omega-3 fatty acids 1,000 mg PO DAILY HPI ASWV G0439 HPI Details 79 year old male with history of hyperte nsion, presents for his subsequent annual wellness visit. He has hypertension currently controlled on lisinopril 10 mg daily. He goes to [facility] for follow-up on his elevated PSA. He is up-to-date with his screening colonoscopy, done by Dr. Carrero 07/22/2023 with remove us more tubular adenoma, with no further testing needed per patient. He had a lipid panel screening done 01/23/2023 with normal findings, and his last fasting blood sugar drawn the same time was also within normal limits. He is up-to-date with his pneumonia vaccine, shingles vaccine, as well as his COVID vaccination gets yearly flu shots. ? Medical / Social History Reviewed? Past Medical History ?Yes . ? [place] of Care / Care Team list updated ?Yes . ? Surgical/Hospitalization History ?Yes . ? Current Medications (including OTC and supplements) ?Yes . ? Family History ?Yes . ? Tobacco Control form ?Yes . ? AUDIT-C (Alcohol use) form ?Yes . ? Illicit drug use in Social History ?Yes . ? Current diagnosis of depression? ?No ? Appropriate PHQ2/PHQ9 completed ?Yes . ? Data entered by ?[employer] and reviewed by provider ? Fall Risk ? Fall History? Have you had any falls with injury in the past year? ?No . ? Have you had two or more falls in the past year? ?No . ? Fall Risk Assessment: ?No falls in the past year . ? HRA filled out by the patient, reviewed by Provider and scanned. ? SWV ? Balance? Romberg ?negative . ? Tandem walk ?Yes . ? Walk and Turn ?Yes . ? Rise from sit to stand ?Yes . ?Vision? Corrective lens ?no ? Vision screen ? Up-to-date, sees Dr. Rojas yearly ?Hearing? Whisper test ?pass . ?Written Plan?Completed. See Patient Documents.? HPI Comments History of Present Illness Details He was admitted June 2024 for a syncopal attack, and was found to have COVID infection. During admission he was noted to be anemic. At present patient states that he has been feeling well, with no episodes of lightheadedness, takes, no chest pain shortness of breath or palpitations. [facility] Medical History (Updated 12/23/24 @ 09:13 by Isabella Traylor MD) Anemia History of COVID-19 PVC (premature ventricular contraction) Essential hypertension Dupuytren's contracture of left hand Hx of spinal stenosis Elevated PSA Dupuytren's contracture of right hand Surgical History Hx of hand surgery History of back surgery Hx of colonoscopy Family History Father CAD (coronary artery disease) Brother Prostate cancer Social History Household Members: None Housing: House Do you presently have visiting nurse or other home services: No Alcohol intake: never Patient Tobacco Use Status: Never used Tobacco e-Cigarette/Vaping Use: Never Used Second Hand Smoke Exposure: No Advance Directives Date on File: 09/18/22 service: Yes Current occupational status: employed Cognitive needs: No Hearing needs: No Vision needs: No Questionnaire Medicare Wellness Checkup What [age] What gender do you identify with?: male During the past 4 weeks, how much have you been bothered by emotional problems such as feeling anxious, depressed, irritable, sad or downhearted, and blue?: not at all During the past 4 weeks, has your physical & emotional health limited your social activities with family, friends, neighbors, or groups?: not at all During the past 4 weeks, how much bodily pain have you generally had?: no pain During the past 4 weeks, was someone available to help you if you needed & wanted help?: yes, quite a bit During the past 4 weeks, what was the hardest physical activity you could do for at least 2 minutes?: heavy Can you get to places out of walking distance without help? (For eg., can you travel alone on buses, taxis or drive your car?): Yes Can you go shopping for groceries or clothes without someone's help?: Yes Can you prepare your own meals?: Yes Can you do your housework without help?: Yes Because of any health problems, do you need the help of another person with your personal care needs such as eating, bathing, dressing or getting around the house?: No Can you handle your own money without help?: Yes During the past 4 weeks, how would you rate your health in general?: very good During the past 4 weeks how have things been going for you?: pretty well Are you having difficulties driving your car?: no Do you always fasten your seat belt when you are in a car?: yes, usually During past 4 weeks, have you been bothered by the following: never: Falling or dizzy when standing up, Sexual problems?, Trouble eating well?, Teeth or denture problems?, Problems using the telephone? and Tiredness or fatigue? Have you fallen 2 or more times in the past year?: No Are you afraid of falling?: No Are you a smoker?: no During the past 4 weeks, how many drinks of wine, beer, or other alcoholic beverages did you have?: no alcohol at all Do you exercise for about 20 minutes 3 or more times a week?: yes, all the time Have you been given information to help with the following?: yes: Hazards in your house that might hurt you? and yes: Keeping track of your medications? How often do you have trouble taking medicines the way you have been told to take them?: I always take medicine as prescribed How confident are you that you can control & manage most of your health problems?: very confident What is your race?: White Mini Mental State Exam (MMSE) Orientation What is the (year) (season) (date) (day) (month)?: year (2024), season (Summer), date (12/23/2024), day () and month (November) Where are we (state) (county) (town or city) (hospital) (floor)?: state ([place]), county ([place]), town or city ([place]) and hospital/clinic ([facility]) Score Score: 9 Activity of Daily Living Bathing - sponge bath, tub bath or shower: receives no assistance (gets in/out by self, if usual bathing means Dressing - getting clothes from closets & drawers, including inner/outer garments & fasteners.: gets clothes & gets completely dressed without help Toileting - going to the 'toilet room' for urine/bowel elimination & cleaning self/arranging clothes: goes to toilet room, cleans self, arranges clothes without help Transfer: moves in & out of bed and chair without help (may use support object) Continence: controls urination/bowel movements completely by self Feeding: feeds self without help Total Score: 0 Information obtained from: patient Using telephone: independent Traveling: independent Shopping: independent Preparing meals: independent Housework: independent Taking medicine: independent Managing money: independent PHQ-9 Over the last 2 weeks, how often have you been bothered by any of the following problems? 1. Little interest or pleasure in doing things: not at all 2. Feeling down, depressed, or hopeless: not at all 3. Trouble falling or staying asleep, or sleeping too much: not at all 4. Feeling tired or having little energy: not at all 5. Poor appetite or overeating: not at all 6. Feeling bad about yourself - or that you are a failure or have let yourself or your family down: not at all 7. Trouble concentrating on things, such as reading the newspaper or watching television: not at all 8. Moving or speaking so slowly that other people could have noticed. Or the opposite - being so fidgety or restless that you have been moving around a lot more than usual: not at all 9. Thoughts that you would be better off or of hurting yourself in some way: not at all Total score: 0 Depression Screening Interpretation: Negative Depression Screening Done: Yes 77345 - PHQ-9 Billing: Yes Source: Developed by Drs. Minh Shah, Koki Bell, Harpreet Browne and colleagues, with an educational jaquan from [employer]. Review of Systems ENT Denies dizziness Card Denies chest pain, Denies rapid heart rate, Denies pedal edema, Denies lightheadedness, Denies palpitations, Denies dyspnea and Denies dyspnea on exertion Resp Denies cough, Denies dyspnea and Denies dyspnea on exertion GI Denies hematochezia and Denies change in stool character Denies hematuria, Denies difficulty urinating, Denies dysuria, Denies nocturia, Denies penile discharge, Denies urinary frequency and Denies urinary hesitancy Musc Denies abnormal gait, Denies limited range of motion, Denies muscle cramps, Denies muscle weakness, Denies numbness, Denies radiating pain into limb, Denies stiffness and Denies tingling Neuro Denies abnormal gait, Denies dizziness, Denies numbness and Denies tingling Endo Denies palpitations Gilbert/Lymph Reports no additional complaints Physical Exam Vital Signs: Last Vital Signs Temp 98.3 F 12/23/24 08:39 Pulse 71 12/23/24 08:39 Resp 16 12/23/24 08:39 BP 135/80 12/23/24 09:10 Pulse Ox 98 12/23/24 08:39 BMI result Body Mass Index 28.9 Const General: healthy appearing, comfortable and no acute distress Orientation/consciousness: patient oriented x3 Eyes General: appearance normal, both eyes and all related structures Neck Neck: Yes normal visual inspection, Yes full ROM, Yes no lymphadenopathy and Yes supple Resp Effort & Inspection: normal respiratory effort Auscultation: clear to auscultation bilaterally and no wheezes Cardio Rate: regular rate Rhythm: regular rhythm Heart sounds: S1 normal heart sound present, S2 normal heart sound present and no murmurs GI Palpation (GI): Soft to palpation, nontender, no guarding and no masses Auscultation: normal bowel sounds Skin General skin exam: no rashes or lesions noted Neuro General: patient oriented x3, gait normal, tone normal, moves all extremities, no focal motor deficits and CN's II-XI intact bilaterally Gait exam (Neuro): Normal gait present Motor exam (neuro): 5/5 motor strength present throughout Extrem General: Yes normal to inspection, No no pedal edema and No calf tenderness Psych Appearance: grossly normal Mental Status: mental status grossly normal Speech and movement: Normal speech and movement present Assessment & Plan Assessment & Plan (1) Advanced directives, counseling/discussion: Code(s): Z71.89 - Other specified counseling Plan: Initiated the conversation about Advanced Directives. Advanced Directives help patients prepare for current and future decisions about their medical treatment and place of care. Discussed with patient that it is a process where a patients current condition and prognosis are reviewed, their wishes for information regarding their illness are elicited, and likely medical dilemmas are presented and options discussed. Healthcare proxy and MOLST form completed today. These forms can be amended as needed, reviewed yearly and make changes as needed (2) Anemia: Code(s): D64.9 - Anemia, unspecified Qualifiers: Anemia type: unspecified type Qualified Code(s): D64.9 - Anemia, unspecified Plan: Repeated another CBC with differential, vitamin B12 vitamin, vitamin D, and an iron profile (3) Essential hypertension: Code(s): I10 - Essential (primary) hypertension Plan: Currently on lisinopril 10 mg daily with blood pressure stable and controlled on present treatment, fasting lipid panel ordered (4) Elevated PSA: Comment: Followed by Dr. Vallejo at [facility] Code(s): R97.20 - Elevated prostate specific antigen [PSA] Plan: Currently followed by [facility] (5) Encounter for subsequent annual wellness visit (AWV) in Medicare patient: Code(s): Z00.00 - Encounter for general adult medical examination without abnormal findings Plan: Medical wellness checklist reviewed, discussed with patient and updated. Orders: Orders Vitamin D 25-OH Total 12/23/24 D64.9 - Anemia, unspecified, Z13.220 - Encounter for screening for lipoid disorders IRON PROFILE 12/23/24 D64.9 - Anemia, unspecified, Z13.220 - Encounter for screening for lipoid disorders Lipid Panel 12/23/24 D64.9 - Anemia, unspecified, Z13.220 - Encounter for screening for lipoid disorders Vitamin B12 and Folate 12/23/24 D64.9 - Anemia, unspecified, Z13.220 - Encounter for screening for lipoid disorders Complete Blood Count Auto Diff 12/23/24 D64.9 - Anemia, unspecified, Z13.220 - Encounter for screening for lipoid disorders Medications: Refilled lisinopril 10 mg PO DAILY 90 tabs 4RF Quality Reporting (2019) Depression/Bipolar (159/160/161/177) PHQ-9: Total score: 0 Coding Level of Care Code Medicare Subsequent (G0439) Est Pt Level 3 (22696) Diagnoses Advanced directives, counseling/discussion Z71.89 Anemia, unspecified type D64.9 Anemia type: unspecified type Essential hypertension I10 Elevated PSA R97.20 Encounter for subsequent annual wellness visit (AWV) in Medicare patient Z00.00 CPT Codes Advance Care Planning - Time spent: 16-45 minutes ([id number]) Additional Codes PHQ-9 - 17408 - PHQ-9 Billing: Yes ([id number]) Advance Care Planning Advance Care Planning discussion: Completed/Scanned Date of discussion: 12/23/24 Who was present: patient Forms completed: Health Care Proxy Time spent: 16-45 minutes Actual minutes spent: 3
[2024-12-23 08:39] VITALS: BP 148/70; PULSE 71; RESP 16; TEMP 36.8; O2SAT 98; BMI 28.9
[2024-12-23 09:10] VITALS: BP 135/80
== END 2024-12-23 09:25 | disposition home or self-care (01) ==
LOC: HO.HMCC 08:23
PROVIDERS: PCP Internal Medicine; Visit Provider Internal Medicine
DX: Z00.00 Encounter for general adult medical examination without abnormal findings (principal); D64.9 Anemia, unspecified; Z71.89 Other specified counseling; I10 Essential (primary) hypertension; R97.20 Elevated prostate specific antigen [PSA]

== ENCOUNTER → 2024-12-23 08:22 | Outpatient (BNVA) | payer MEDICARE, SELFPAY | PROVIDERS: PCP Internal Medicine; Visit Provider Internal Medicine | DX: Z00.01 Encounter for general adult medical examination with abnormal findings (principal); D64.9 Anemia, unspecified; R97.20 Elevated prostate specific antigen [PSA]; I10 Essential (primary) hypertension; Z71.89 Other specified counseling | CPT/HCPCS: 96127; 99212 ==

== ENCOUNTER 2025-01-06 06:40 | Outpatient (REF) | payer MEDICARE, SELFPAY ==
--- OUTSIDE RECORDS SUMMARY | 2023-07-22 03:30 | XMS_ITS ---
Author Organization [facility] Address [address] [place] [id number] Care Team Providers Care Polisher Aluminum Name Role Phone Layton ROGERS, Isabella Primary Care Provider Alek Carrero Jr, Avery Unavailable REASON FOR VISIT screening Encounters Encounter Location Date Provider Diagnosis [facility] [address] [place] [id number] 07/22/2023 Avery Carrero Jr Encounter for screening colonoscopy Z12.11 and Colon polyps K63.5 Assessments Encounter Date Diagnosis (ICD Code) Assessment Notes Treatment Notes Treatment Clinical Notes Section Notes 07/22/2023 Encounter for screening colonoscopy (ICD-10 - Z12.11) 07/22/2023 Colon polyps (ICD-10 - K63.5) Plan Of Treatment No Information Progress Notes * ENID SILVA TDOB:1945 (79 yo M)Acc No.[id number]:07/22/2023 COLON WITH MAC Patient: ENID CONRAD Provider: Alise Carrero MD :1945 A ge:78 Y S ex:Male Date:07/22/2023 Address:[address] [place] [address] Pcp:Isabella Traylor MD Subjective: * Chief Complaints: * 1 . Screening. * Medical History: Objective: * Vitals: Assessment: * Assessment: 1. E ncounter for screening colonoscopy - Z12.11 (Primary) 2 . C olon polyps - K63.5 Plan: * Treatment: * Procedure Codes: 4 5380 COLONOSCOPY AND BIOPSY, 0529F INTRVL 3+YRS PTS CLNSCP DOCD * * The named appointment provid er may or may not be the originator of this progress note, and it is not deemed complete until electronically signed by the appointment provider. Sign off status: Pending * Provider: Alise Carrero MD Date: 0 07/22/2023 Generated for Martine perdue/Nena/Gabriel on: 0 01/06/2025 06:42 AM EDT
--- OUTSIDE RECORDS SUMMARY | 2025-01-06 06:43 | XMS_ITS | Clinical Summary ---
Author Organization [address] [facility] Address [address] [place] [address] Phone Care Team Providers Care Content Administrator Name Role Phone Isabella Traylor MD Primary Care Provider Encounters Date Type Department Care Team Description 12/21/2024 Lab Requisition [facility] - Main Lab [address] [facility] [place] [address] Benjy Vallejo MD Elevated prostate specific antigen (PSA) from Last 3 Months Surgical History Surgery Date Site/Laterality Comments OTHER SURGICAL HISTORY 04/19/2022 PROCEDURE: MI CASTRO FACETECTOMY & FORAMOTOMY 1 VRT SGM LUMBAR; COMMENT: L4-5 decompression, Dr. Baker Social History Tobacco Use Types Packs/Day Years Used Date Smoking Tobacco: Never Smokeless Tobacco: Never Sex and Gender Information Value Date Recorded Sex Assigned at Not on file Legal Sex Male 6:23 AM EST Gender Identity Not on file Sexual Orientation Not on file Obstetrics History Last Filed Vital Signs Vital Sign Reading Time Taken Comments Blood Pressure - - Pulse - - Temperature - - Respiratory Rate - - Oxygen Saturation - - Inhaled Oxygen Concentration - - Weight 99.8 kg (220 lb) 05/10/2022 9:59 AM EST Height 188 cm (6' 2 ) 05/10/2022 9:59 AM EST Body Mass Index 28.25 05/10/2022 9:59 AM EST Plan of Treatment Health Maintenance Due Date Last Done Comments Zoster Vaccines (1 of 2) 01/10/2020 11/15/2019 RSV Immunization Adult Patients (1 - 1-dose 75+ series) 2022 Cholesterol Screening (Lipid Panel) 06/02/2022 Depression Screening 06/02/2022 Falls Risk Assessment 06/02/2022 Hepatitis C Screening 06/02/2022 Medicare Annual Wellness Visit 06/02/2022 Social Influencers of Health Screening 06/02/2022 COVID-19 Vaccine ( season) 2024 10/10/2021, 05/18/2021, 09/29/2020, Additional history exists Influenza Vaccine (#1) 2025 , 04/22/2020, 03/29/2019, Additional history exists DTaP,Tdap,and Td Vaccines (2 - Td or Tdap) 10/23/2030 10/23/2020 Pneumococcal Vaccine: 50+ Years Completed 06/04/2018, 06/14/2015 Varicella Vaccines Aged Out 11/15/2019 No longer eligible based on patient's age to complete this topic HIB Vaccines Aged Out No longer eligi ble based on patient's age to complete this topic HPV Vaccines Aged Out No longer eligi ble based on patient's age to complete this topic Hepatitis A Vaccines Aged Out No long er eligible based on patient's age to complete this topic Hepatitis B Vaccines Aged Out No long er eligible based on patient's age to complete this topic IPV Vaccines Aged Out No longer eligi ble based on patient's age to complete this topic MMR Vaccines Aged Out No longer eligi ble based on patient's age to complete this topic Meningococcal ACWY Vaccine Aged Out N o longer eligible based on patient's age to complete this topic Meningococcal B Vaccine Aged Out No l onger eligible based on patient's age to complete this topic RSV Immunization Patients Under 20 months Aged Out No longer eligible based on patient's age to complete this topic Procedures Procedure Name Priority Date/Time Associated Diagnosis Comments AP OUTSIDE CONSULT Routine 12/21/2024 Elevated prostate specific antigen (PSA) from Last 3 Months Results * Anatomic pathology outside consult (12/21/2024) Final Diagnosis A. Prostate, Left [place] (Core Biopsy): -HIGH GRADE PROSTATIC INTRAEPITHELIAL NEOPLASIA -PIN4 supports the diagnosis B. Prostate, Left Lateral [place] (Core Biopsy): -HIGH GRADE PROSTATIC INTRAEPITHELIAL NEOPLASIA C. Prostate, Left Middle Middle (Core Biopsy): -BENIGN PROSTATE TISSUE D. Prostate, Left Lateral Middle (Core Biopsy): -HIGH GRADE PROSTATIC INTRAEPITHELIAL NEOPLASIA E. Prostate, Left Middle Base (Core Biopsy): -BENIGN PROSTATE TISSUE F. Prostate, Left Lateral Base (Core Biopsy): -BENIGN PROSTATE TISSUE G. Prostate, Left Mid Gland Peripheral Zone (Core Biopsy): -BENIGN PROSTATE TISSUE H. Prostate, Right [place] (Core Biopsy): -BENIGN PROSTATE TISSUE I. Prostate, Right Lateral [place] (Core Biopsy): -BENIGN PROSTATE TISSUE J. Prostate, Right Middle Middle (Core Biopsy): -BENIGN PROSTATE TISSUE K. Prostate, Right Lateral Middle (Core Biopsy): -HIGH GRADE PROSTATIC INTRAEPITHELIAL NEOPLASIA L. Prostate, Right Middle Base (Core Biopsy): -BENIGN PROSTATE TISSUE M. Prostate, Right Lateral Base (Core Biopsy): -BENIGN PROSTATE TISSUE 5 8:30 AM [facility] Comment A.) The immunohistochemistry stains were medically necessary and performed because the additional information was needed by the pathologist to evaluate a suspicious focus. NOTE: The immunohistochemical tests were developed and their performance characteristics were determined by [facility] 5 8:30 AM [facility] Clinical Information Elevated PSA R97.20 PSA: 6.1 (11/30/24) [id number] 5 8:30 AM [facility] Gross Description A. Prostate, Left [place] Biopsy: Received, properly labeled, are two H and E stained slides and two unstained slides. B. Prostate, Left Lateral [place] Biopsy: Received, properly labeled, are two H and E stained slides and two unstained slides. C. Prostate, Left Middle Middle Biopsy: Received, properly labeled, are two H and E stained slides and two unstained slides. D. Prostate, Left Lateral Middle Biopsy: Received, properly labeled, are two H and E stained slides and two unstained slides. E. Prostate, Left Middle Base Biopsy: Received, properly labeled, are two H and E stained slides and two unstained slides. F. Prostate, Left Lateral Base Biopsy: Received, properly labeled, are two H and E stained slides and two unstained slides. G. Prostate, Left Midgland Peripheral Zone Biopsy: Received, properly labeled, are two H and E stained slides and two unstained slides. H. Prostate, Right [place] Biopsy: Received, properly labeled, are two H and E stained slides and two unstained slides. I. Prostate, Right Lateral [place] Biopsy: Received, properly labeled, are two H and E stained slides and two unstained slides. J. Prostate, Right Middle Middle Biopsy: Received, properly labeled, are two H and E stained slides and two unstained slides. K. Prostate, Right Lateral Middle Biopsy: Received, properly labeled, are two H and E stained slides and two unstained slides. L. Prostate, Right Middle Base Biopsy: Received, properly labeled, are two H and E stained slides and two unstained slides. M. Prostate, Right Lateral Base Biopsy: Received, properly labeled, are two H and E stained slides and two unstained slides. /al 5 8:[address] [facility] Disclaimer Unless otherwise specified, all tissue is 10% NB formalin fixed and paraffin embedded. Technical pathology services provided by [facility] at [address] [place] [address] [address], [place] [address] (CLIA #[id number]/Bonny Feng MD, Coil Shaper) 5 8:[address] [facility] Tissue Prostate / Unknown 12/21/20242024 3:55 PM EDT Tissue specimen (specimen) Prostate / Unknown 12/21/2024 12/21/2024 3: 58 PM EDT Tissue specimen (specimen) Prostate / Unknown 12/21/2024 12/21/2024 3: 58 PM EDT Tissue specimen (specimen) Prostate / Unknown 12/21/2024 12/21/2024 3: 58 PM EDT Tissue specimen (specimen) Prostate / Unknown 12/21/2024 12/21/2024 3: 58 PM EDT Tissue specimen (specimen) Prostate / Unknown 12/21/2024 12/21/2024 3: 58 PM EDT Tissue specimen (specimen) Prostate / Unknown 12/21/2024 12/21/2024 3: 58 PM EDT Tissue specimen (specimen) Prostate / Unknown 12/21/2024 12/21/2024 3: 58 PM EDT Tissue specimen (specimen) Prostate / Unknown 12/21/2024 12/21/2024 3: 58 PM EDT Tissue specimen (specimen) Prostate / Unknown 12/21/2024 12/21/2024 3: 58 PM EDT Tissue specimen (specimen) Prostate / Unknown 12/21/2024 12/21/2024 3: 58 PM EDT Tissue specimen (specimen) Prostate / Unknown 12/21/2024 12/21/2024 3: 58 PM EDT Tissue specimen (specimen) Prostate / Unknown 12/21/2024 12/21/2024 3: 58 PM EDT us Benjy Vallejo MD LAB PATHOLOGY ORDERABLES Final Result [facility] [address] [place] [address], [place] [phone] from Last 3 Months Insurance MEDICARE [facility] Care Teams Content Administrator Relationship Specialty Start Date End Date Isabella Traylor MD [address] [place], [place] [phone] PCP - General Internal Medicine 01/31/22
[2025-01-06 10:22] LABS: MANUAL DIFF FLAG NO
[2025-01-06 10:44] LABS: Hematocrit 40.2 % (42.0-52.0); Hemoglobin 13.6 g/dl (14.0-18.0); Imm Gran Abs Auto 0.01 X10*3/uL (0.00-0.03); Imm Gran Pct Auto 0.2 % (0.0-0.4); Lymphocytes Absolute Auto 2.0 X10*3/uL (1.2-4.9); Mean Corpuscular HGB Conc 33.8 g/dl (31.0-36.0); Mean Corpuscular Hemoglobin 31.1 pg (27.0-33.0); Mean Corpuscular Volume 91.8 fL (80.0-98.0); NRBC Abs Auto 0.000 X10*3/uL (0.0-0.012); NRBC Pct Auto 0.0 /100WBC (0.0-0.2); Platelet Count 335 X10*3/uL (160-400); Red Blood Count 4.38 X10*6/uL (4.60-5.80); White Blood Count 5.3 X10*3/uL (4.8-10.8)
[2025-01-06 11:12] LABS: Cholesterol 137 mg/dL (<200); HDL Cholesterol 39 mg/dL (>40); Iron 95 mcg/dL (45-160); Percent Iron Saturation 43 % (15-50); Total Iron Binding Capacity 219 mcg/dL (228-428); Triglycerides 64 mg/dL (<150); Unsaturated Iron Binding 124 ug/dL
[2025-01-06 11:26] LABS: Folate 13.1 ng/mL (> or = 4.0); Vitamin B12 693 pg/mL (200-900)
== END 2025-01-06 06:41 | disposition home or self-care (01) ==
LOC: HO.HMGCLDS 06:40
PROVIDERS: PCP Internal Medicine; Visit Provider Internal Medicine
DX: Z13.220 Encounter for screening for lipoid disorders (principal); D64.9 Anemia, unspecified
CPT/HCPCS: 36415; 80061; 82306; 82607; 82746; 83540; 85025